=== PATIENT | male | born 1930 | race Caucasian/White ===

== ENCOUNTER 2017-03-16 18:18 | Emergency (ER) | payer MEDICARE ==
--- NOTE | 2017-03-16 19:34 | RAD ---
INDICATION: Cough COMPARISON: February 03, 2017 TECHNIQUE: PA and lateral dual-energy views were obtained. FINDINGS: Bones/Soft Tissues: There are no acute bony findings. There is sternotomy Cardiomediastinal: The cardiomediastinal silhouette is normal. Lungs: There are no infiltrates. There is mild right basilar atelectasis, unchanged Pleura: There are no pleural effusions. Other: There is elevation right hemidiaphragm, unchanged IMPRESSION: NO ACTIVE DISEASE. CHRONIC ELEVATION OF THE RIGHT HEMIDIAPHRAGM
[2017-03-16 21:08] VITALS: BP 129/75
--- NOTE | 2017-03-16 21:17 | UC ---
Dustin Allen Alfonso, scribed for Josiah Spivey MD on 03/16/17 at 1915 . General HPI - HPI Summary HPI Summary: This patient is an 86 year old M presenting to [facility] referred by Dr. 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 He will see Dr. Pack tomorrow. The patient rates the pain 1/10 in severity. Symptoms aggravated and alleviated by nothing. Patient reports mild SOB. Patient denies fever, and CP. - History of Current Complaint Chief Complaint: UCRespiratory Stated Complaint: COUGH Time Seen by Provider: 03/16/17 19:06 Hx Obtained From: Patient Onset/Duration: Gradual Onset, Lasting Days, Still Present Timing: Constant Current Severity: Mild Pain Intensity: 1 - /10 Aggravating: nothing Alleviating: nothing Associated Signs & Symptoms: Positive: Other - mild SOB. Patient denies fever, and CP. - Allergy/Home Medications Allergies/Adverse Reactions: Allergies Allergy/AdvReac Type Severity Reaction Status Date / Time No Known Allergies Allergy Verified 08/01/15 15:28 PMH/Surg Hx/FS Hx/Imm Hx Previously Healthy: No Cardiovascular History: Other Other Cardiovascular History: valvular disease - Surgical History Surgical History: Yes Surgery Procedure, Year, and Place: May.02 - AROTIC VALVE REPLACEMENT ( DAUGHTER WILL BRING AT TIME OF APT). WOLF KNEE REPLACEMENT - Family History Known Family History: Positive: Other - REVIEWED & NONCONTRIBUTORY - Social History Alcohol Use: None Substance Use Type: None Smoking Status (MU): Former Smoker Type: Pipe When Did the Patient Quit Smoking/Using Tobacco: 1984 Review of Systems Constitutional: Other - Negative fever Respiratory: Shortness Of Breath, Cough Cardiovascular: Other - Negative CP All Other Systems Reviewed And Are Negative: Yes Physical Exam Triage Information Reviewed: Yes Vital Signs: Initial Vital Signs Temp 97.0 F 03/16/17 18:25 Pulse 70 03/16/17 18:25 Resp 20 03/16/17 18:25 BP 136/73 03/16/17 18:25 Pulse Ox 96 03/16/17 18:25 Vital Signs Reviewed: Yes - Additional Comments VITAL SIGNS: Reviewed. GENERAL: Patient is an elderly and nourished male who is lying comfortable in the stretcher. Patient is not in any acute respiratory distress. HEAD AND FACE: Normocephalic EYES: PERRLA, EOMI x 2. EARS: Hearing grossly intact. MOUTH: Oropharynx within normal limits. NECK: Supple, trachea is midline, no adenopathy, no JVD, no carotid bruit. CHEST: Symmetric, no tenderness at palpation LUNGS: Bilateral crackles. No wheezing. CVS: Regular rate and rhythm, S1 and S2 present, no murmurs or gallops appreciated. ABDOMEN: Soft, non-tender. Bowel sounds are normal. No abdominal abnormal pulsations. EXTREMITIES: Full ROM in all major joints, no edema, no cyanosis or clubbing. NEURO: Alert and oriented x 3. No acute neurological deficits. Speech is normal and follows commands. SKIN: Dry and warm Diagnostics - Laboratory Diagnostic Studies Completed/Ordered: CXR reveals, per radiologist, NO ACTIVE DISEASE. CHRONIC ELEVATION OF THE RIGHT HEMIDIAPHRAGM. [facility] physician has reviewed this radiology report. 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 He will see Dr. Pack tomorrow. The patient rates the pain 1/10 in severity. Symptoms aggravated and alleviated by nothing. Patient reports mild SOB. Patient denies fever, and CP. CXR reveals, per radiologist, NO ACTIVE DISEASE. CHRONIC ELEVATION OF THE RIGHT HEMIDIAPHRAGM. [facility] physician has reviewed this radiology report. Influenza A and B negative. Patient will be discharged with follow up from PCP. The patient is agreeable with this plan. The patient is hemodynamically stable, alert and oriented x3. - Differential Dx - Multi-Symptom Differential Diagnoses: Other - Pneumonia, Bronchitis, CHF, Provider Diagnoses: Cough Discharge - Discharge Plan Condition: Stable Disposition: HOME Patient Education Materials: Acute Cough (ED) Referrals: Josiah Pack MD [Primary Care Provider] - 1 Day Additional Instructions: RETURN TO THE EMERGENCY DEPARTMENT OR CONVENIENT CARE FOR CHANGING OR WORSENING SYMPTOMS. The documentation as recorded by the Dustin canela Alfonso accurately reflects the service I personally performed and the decisions made by Patric scales Walter, MD.
== END 2017-03-16 21:05 | disposition home or self-care (01) ==
LOC: UCEAST 18:18
DX: R05 Cough (principal); R06.02 Shortness of breath; Z87.891 Personal history of nicotine dependence
CPT/HCPCS: 71020; 87502; 99211; G0463

== ENCOUNTER 2017-10-11 08:57 | Emergency (ER) | payer MEDICARE ==
[2017-10-11 09:46] LABS: ABS Basophils 0.1 10^3/ul (0-0.2); ABS Eosinophils 0.4 10^3/ul (0-0.6); ABS Lymphocytes 1.1 10^3/ul (1.0-4.8); ABS Monocytes 0.9 10^3/ul (0-0.8); ABS Neutrophils 4.6 10^3/ul (1.5-7.7); ABS Nucleated RBC 0 10^3/ul; Eosinophil % 5.6 % (0-6); Hematocrit 40 % (42-52); Hemoglobin 13.7 g/dl (14.0-18.0); Lymphocyte % 15.8 % (25-47); Mean Corpuscular HGB Conc 34 g/dl (31-36); Mean Corpuscular Hemoglobin 31 pg (27-31); Mean Corpuscular Volume 91 fL (80-94); Mean Platelet Volume 8.7 um3 (7.4-10.4); Nucleated Red Blood Cells % 0; Platelet Count 174 10^3/ul (150-450); Red Blood Count 4.43 10^6/ul (4.00-5.40); Red Cell Distribution Width 15 % (10.5-15); White Blood Count 7.1 10^3/ul (3.5-10.8)
[2017-10-11 09:56] LABS: EGFR Non-African American 59.2 (>60)
--- NOTE | 2017-10-11 09:56 | RAD ---
INDICATION: Agitation. Dimension. COMPARISON: March 16, 2017 TECHNIQUE: PA and lateral dual-energy views were obtained. FINDINGS: Bones/Soft Tissues: There are no acute bony findings. There is prior sternotomy /valvular surgery Cardiomediastinal: The cardiomediastinal silhouette is normal. Lungs: There is new infiltrative change in the right lung base. Pleura: There is a suspected right-sided effusion. Other: There is chronic elevation right hemidiaphragm. IMPRESSION: NEW RIGHT BASILAR INFILTRATE /EFFUSION. SUGGEST FOLLOW-UP
--- NOTE | 2017-10-11 11:25 | ED ---
Psychiatric Complaint - HPI Summary HPI Summary: Pt with dementia who resides on dementia unit at [facility] presents w/ " aggressive behavior". No other reports provided. Pt is poor historian. - History Of Current Complaint Chief Complaint: EDGeneral Time Seen by Provider: 10/11/17 09:16 Hx Obtained From: Patient - Allergies/Home Medications Allergies/Adverse Reactions: Allergies Allergy/AdvReac Type Severity Reaction Status Date / Time No Known Allergies Allergy Verified 10/11/17 09:02 Home Medications: Home Medications Acetaminophen TAB* [Tylenol TAB*] 650 mg PO Q4H PRN 10/11/17 [History Confirmed 10/11/17] Aspirin EC TAB* [Ecotrin EC Low Dose 81 MG*] 81 mg PO DAILY 10/11/17 [History Confirmed 10/11/17] Calcium Carbonate TAB* 1,250 mg PO BID 10/11/17 [History Confirmed 10/11/17] Cholecalciferol TAB* [Vitamin D TAB*] 1,000 unit PO DAILY 10/11/17 [History Confirmed 10/11/17] Donepezil TAB* [Aricept 5 MG TAB*] 10 mg PO BEDTIME 10/11/17 [History Confirmed 10/11/17] Enalapril TAB* [Vasotec TAB*] 10 mg PO DAILY 10/11/17 [History Confirmed ] Loperamide LIQ* [Imodium LIQ*] 2 mg PO DAILY PRN 10/11/17 [History Confirmed ] Metoprolol Tartrate TAB* [Lopressor TAB*] 50 mg PO BID 10/11/17 [History Confirmed 10/11/17] [place]-3 Fatty Acids (Nf) [Fish Oil (NF)] 1,000 mg PO DAILY 10/11/17 [History Confirmed 10/11/17] Simvastatin TAB(NF) [Zocor(NF)] 20 mg PO DAILY 10/11/17 [History Confirmed 10/11] Umeclidin/Vilant 62.5 MDI(NF) [ANORO 62.5/25 Ellipta DEVICE (NF)] 1 inh INH DAILY 10/11/17 [History Confirmed 10/11/17] amLODIPine TAB* [Norvasc 5 mg TAB*] 5 mg PO DAILY 10/11/17 [History Confirmed ] PMH/Surg Hx/FS Hx/Imm Hx Previously Healthy: No - severe dementia Endocrine/Hematology History: Denies: Hx Diabetes Cardiovascular History: Reports: Hx Hypertension - CONTROLLED WITH MEDS, Hx Peripheral Vascular Disease - RIGHT ILLIAC, Hx Rheumatic Fever - A TEEN, Hx Valvular Heart Disease - HEART VALVE TRANSPLANT Denies: Hx Congestive Heart Failure, Hx Pacemaker/ICD, Other Cardiovascular Problems/Disorders Respiratory History: Denies: Hx Asthma, Hx Chronic Obstructive Pulmonary Disease (COPD), Other Respiratory Problems/Disorders GI History: Denies: Other GI Disorders History: Denies: Hx Renal Disease Musculoskeletal History: Reports: Hx Arthritis - HANDS, FEET Denies: Other Musculoskeletal History Sensory History: Reports: Hx Cataracts - WOLF, Hx Contacts or Glasses - GLASSES, Hx Hearing Aid Opthamlomology History: Reports: Hx Cataracts - WOLF, Hx Contacts or Glasses - GLASSES Neurological History: Reports: Hx Nerve Disease - NEUROPATHY LEFT SIDE, Other Neuro Impairments/Disorders - DEMENTIA Psychiatric History: Denies: Hx Panic Disorder - Cancer History Cancer Type, Location and Year: PROSTATE Hx Chemotherapy: Yes - Surgical History Surgery Procedure, Year, and Place: May.02 - AROTIC VALVE REPLACEMENT ( DAUGHTER WILL BRING AT TIME OF APT). WOLF KNEE REPLACEMENT Hx Anesthesia Reactions: Yes - AGGRESSIVE WITH VALVE REPLACEMENT Infectious Disease History: Unable to Obtain/Confirm Infectious Disease History: Denies: Traveled Outside the [place] in Last 30 Days - Family History Known Family History: Positive: Other - level 5 caveat - dementia - Social History Occupation: Retired Lives: At [facility] [employer] Alcohol Use: None Hx Substance Use: No Substance Use Type: Reports: None Hx Tobacco Use: No Smoking Status (MU): Former Smoker Type: Pipe Review of Systems - ROS Summary Review of Systems Summary: Level 5 caveat - significant dementia Psychological: Other - aggressive behavior reported by [facility] staff All Other Systems Reviewed And Are Negative: Yes Physical Exam Triage Information Reviewed: Yes Vital Signs On Initial Exam: Initial Vitals Temp Pulse Resp BP Pulse Ox 98 F 57 16 145/60 94 10/11/17 08:59 10/11/17 08:59 10/11/17 08:59 10/11/17 08:59 10/11/17 08:59 Vital Signs Reviewed: Yes Appearance: Positive: Well-Appearing, No Pain Distress, Well-Nourished Skin: Positive: Warm, Skin Color Reflects Adequate Perfusion, Dry - no s/sx of wounds/skin infection Head/Face: Positive: Normal Head/Face Inspection - atraumatic Eyes: Positive: Normal, EOMI, SHANEL, Conjunctiva Clear ENT: Positive: Normal ENT inspection, Hearing grossly normal, Pharynx normal - mucosa moist - atraumatic, TMs normal. Negative: Nasal congestion, Nasal drainage, Trismus, Muffled voice Dental: Negative: Dental Fracture @ Neck: Positive: Supple, Nontender Respiratory/Lung Sounds: Positive: Clear to Auscultation, Breath Sounds Present. Negative: Rales, Rhonchi, Wheezes Cardiovascular: Positive: RRR, S1, S2. Negative: Leg Edema Left, Leg Edema Right Abdomen Description: Positive: Nontender, No Organomegaly, Soft Bowel Sounds: Positive: Present Musculoskeletal: Positive: Strength/ROM Intact - spontaneous and appropriate Neurological: Positive: Other - significant dementia - does not answer questions appropriately. Negative: Alert, Oriented to Person Place, Time Psychiatric: Positive: Normal - calm, seated on stretcher - pleasant and mostly cooperative w/ exam Diagnostics - Vital Signs Vital Signs Temp Pulse Resp BP Pulse Ox 10/11/17 08:59 98 F 57 16 145/60 94 - Laboratory Lab Results: Lab Results 10/11/17 10/11/17 Range/Units 09:27 09:27 WBC 7.1 (3.5-10.8) 10^3/ul RBC 4.43 (4.00-5.40) 10^6/ul Hgb 13.7 L (14.0-18.0) g/dl Hct 40 L (42-52) % MCV 91 (80-94) fL MCH 31 (27-31) pg MCHC 34 (31-36) g/dl RDW 15 (10.5-15) % Plt Count 174 (150-450) 10^3/ul MPV 8.7 (7.4-10.4) um3 Neut % (Auto) 65.4 (38-83) % Lymph % (Auto) 15.8 L (25-47) % [place] % (Auto) 12.3 H (0-7) % Eos % (Auto) 5.6 (0-6) % Baso % (Auto) 0.9 (0-2) % Absolute Neuts (auto) 4.6 (1.5-7.7) 10^3/ul Absolute Lymphs (auto) 1.1 (1.0-4.8) 10^3/ul Absolute Monos (auto) 0.9 H (0-0.8) 10^3/ul Absolute Eos (auto) 0.4 (0-0.6) 10^3/ul Absolute Basos (auto) 0.1 (0-0.2) 10^3/ul Absolute Nucleated RBC 0 10^3/ul Nucleated RBC % 0 Sodium 137 (135-145) mmol/L Potassium 4.1 (3.5-5.0) mmol/L Chloride 103 (101-111) mmol/L Carbon Dioxide 30 (22-32) mmol/L Anion Gap 4 (2-11) mmol/L BUN 21 (6-24) mg/dL Creatinine 1.17 (0.67-1.17) mg/dL Est GFR ( Amer) 71.7 (>60) Est GFR (Non-Af Amer) 59.2 (>60) BUN/Creatinine Ratio 17.9 (8-20) Glucose 107 H (70-100) mg/dL Calcium 9.3 (8.6-10.3) mg/dL Total Bilirubin 0.70 (0.2-1.0) mg/dL AST 22 (13-39) U/L ALT 24 (7-52) U/L Alkaline Phosphatase 68 (34-104) U/L Total Protein 7.1 (6.4-8.9) g/dL Albumin 3.5 (3.2-5.2) g/dL Globulin 3.6 (2-4) g/dL Albumin/Globulin Ratio 1.0 (1-3) TSH 1.06 (0.34-5.60) mcIU/mL Salicylates < 2.50 (<30) mg/dL Acetaminophen < 15 mcg/mL Serum Alcohol < 10 (<10) mg/dL Result Diagrams: 10/11/17 09:27 10/11/17 09:27 Lab Statement: Any lab studies that have been ordered have been reviewed, and results considered in the medical decision making process. Course/Dx - Course Course Of Treatment: Pt w/ significant dementia presents from [facility] with "aggressive behevior". He is a poor historian and so w/u performed to assess for infection/injury. Labs are unremarkable for significant pathology and CXR is abnormal for effusion vs. infiltrate. W/o pt reporting sx of cough, SOB and having normal pulse ox, temp w/ normal WBC's, a CT was ordered to r/o new effusion. CT confirms infiltrate. CT brain was also ordered to r/o trauma - no acute findings but chronic atrophy correlates w/ dementia presentation. Discussed w/ Dr. Salazar. Pt d/c'd back to [facility] w/ close f/u w/ PCP tomorrow. Danger s/sx of when to return to ED printed on d/c for nursing to review - nurse also made call to coordinate care plan (see nursing notes). - Differential Dx/Clinical Impression Provider Diagnosis: Pneumonia Discharge - Sign-Out/Discharge Documenting (check all that apply): Patient Departure - Discharge Plan Condition: Stable Disposition: HOME Prescriptions: Azithromycin TAB* [Zithromax TAB (Z-LJ) 250 mg #6 tabs] 250 mg PO DAILY #4 tab ceFUROXime TAB(*) [Ceftin TAB 250 MG(*)] 500 mg PO BID #9 tab Patient Education Materials: Bacterial Pneumonia (ED) Referrals: Josiah Pack MD [Primary Care Provider] - Additional Instructions: You appear to have a right sided pneumonia - complete medications as directed and follow-up with PCP in 2 days. Take probiotics in between antibiotic doses to prevent diarrhea, c. diff If you develop fever, chills, vomiting, shortness of breath or chest pain, return to the ED - Billing Disposition and Condition Condition: STABLE Disposition: Home
[2017-10-11 11:36] LABS: Urine Appearance Clear; Urine Blood Negative (Negative); Urine Color Yellow; Urine Ketones Negative (Negative); Urine Protein Negative (Negative); Urine Specific Gravity 1.016 (1.010-1.030); Urine Urobilinogen Negative (Negative)
--- NOTE | 2017-10-11 12:21 | RAD ---
INDICATION: Dementia . Right lower lobe infiltrate on concurrent chest x-ray COMPARISON: Chest x-ray same date TECHNIQUE: Noncontrast axial source images were obtained from the thoracic inlet to the hemidiaphragms. Coronal and sagittal reconstructed images were acquired. The visualized neck to include the thyroid appear normal. Chest wall: There are no acute abnormalities of the bony thorax or chest wall. There is prior sternotomy There is no supraclavicular, infraclavicular, or axillary lymphadenopathy. Lungs : The left lung is clear. There is infiltrate or atelectasis in the right lung base.. Cardiomediastinal structures: The heart is normal in size. There is no pericardial effusion. There is no evidence of aortic aneurysm or dissection. There are atherosclerotic changes with aortic valvular surgery. The pulmonary vessels appear normal. There is no mediastinal or hilar adenopathy. The esophagus appears normal. Pleura : There are no significant effusions. Other: There is colonic interposition in the right upper quadrant there are bilateral renal cysts. There are aortic calcifications. There is elevation right hemidiaphragm, a finding documented previously IMPRESSION: CHRONIC ELEVATION RIGHT HEMIDIAPHRAGM. INFILTRATE OR ATELECTASIS RIGHT LUNG BASE
--- NOTE | 2017-10-11 12:21 | RAD ---
INDICATION: New onset confusion COMPARISON: None. TECHNIQUE: Contiguous axial sections of the brain were obtained from the skull base to the vertex without contrast. FINDINGS: Image quality is somewhat limited by motion artifact. The ventricles, cisterns and sulci exhibit mild to moderate symmetrical involutional changes appropriate for the patient's age.. There is mild periventricular and subcortical white matter hypoattenuation most consistent with chronic microvascular disease. The sanchez-white matter differentiation is adequately maintained and there is no sulcal effacement. No significant focal abnormality or mass effect is present. There is no evidence for intracranial hemorrhage. No significant focal osseous abnormality is present. The visualized portion of the paranasal sinuses appear clear. The mastoid air cells are well aerated bilaterally. IMPRESSION: No CT apparent acute intracranial abnormality. Age-appropriate chronic findings include involutional changes in appearance consistent with chronic microvascular disease.
[2017-10-11] MEDS ORDERED: Azithromycin TAB* 250 MG PO ONE (12:38)
[2017-10-11] MEDS ORDERED: ceFUROXime TAB(*) 250 MG PO ONE (12:40)
[2017-10-11 12:58] VITALS: BP 140/66
== END 2017-10-11 12:56 | disposition home or self-care (01) ==
LOC: ED 08:57
DX: J18.9 Pneumonia, unspecified organism (principal); R00.1 Bradycardia, unspecified; F03.90 Unspecified dementia, unspecified severity, without behavioral disturbance, psychotic disturbance, mood disturbance, and anxiety; I10 Essential (primary) hypertension; Z85.46 Personal history of malignant neoplasm of prostate; Z95.2 Presence of prosthetic heart valve; Z96.653 Presence of artificial knee joint, bilateral; Z87.891 Personal history of nicotine dependence
CPT/HCPCS: 36415; 70450; 71046; 71250; 80053; 80307; 80320; 80329; 81003; 83880; 84443; 85025; 93005; 99284; A9270-GY; G0480

== ENCOUNTER 2018-02-25 13:07 | Emergency (ER) | payer MEDICARE ==
--- NOTE | 2018-02-25 13:52 | ED ---
Syncope/Near Syncope - HPI Summary HPI Summary: An 87 y/o male presents brought in by [facility] presents to [facility] with a chief complaint of sycope.The patient is a LEVEL 5 CAVEAT: The history is limited due to the patient having dementia. Per daughter, Iliana relayed the information that he was not responding at lunch time and that he was being sent out. The pt does not remember anything. The patient denies SOB. Per daughter the pt has a Hx of a heart valve replacement and he does not meet the threshold for O2. - History Of Current Complaint Chief Complaint: EDSyncope Time Seen by Provider: 02/25/18 13:36 Hx Obtained From: Patient, Family/Stylist Assistant Hx From Patient Unobtainable Due To: Dementia Onset/Duration: Sudden Onset, Lasting Hours, Resolved Context: Witnessed Activity At Onset: At Rest Aggravating Factor(s): Nothing Alleviating Factor(s): Nothing Associated Signs And Symptoms: Negative - Allergies/Home Medications Allergies/Adverse Reactions: Allergies Allergy/AdvReac Type Severity Reaction Status Date / Time No Known Allergies Allergy Verified 10/11/17 09:02 PMH/Surg Hx/FS Hx/Imm Hx Previously Healthy: No Endocrine/Hematology History: Denies: Hx Diabetes Cardiovascular History: Reports: Hx Hypertension - CONTROLLED WITH MEDS, Hx Peripheral Vascular Disease - RIGHT ILLIAC, Hx Rheumatic Fever - A TEEN, Hx Valvular Heart Disease - HEART VALVE TRANSPLANT Denies: Hx Congestive Heart Failure, Hx Pacemaker/ICD, Other Cardiovascular Problems/Disorders Respiratory History: Denies: Hx Asthma, Hx Chronic Obstructive Pulmonary Disease (COPD), Other Respiratory Problems/Disorders GI History: Denies: Other GI Disorders History: Denies: Hx Renal Disease Musculoskeletal History: Reports: Hx Arthritis - HANDS, FEET Denies: Other Musculoskeletal History Sensory History: Reports: Hx Cataracts - WOLF, Hx Contacts or Glasses - GLASSES, Hx Hearing Aid Opthamlomology History: Reports: Hx Cataracts - WOLF, Hx Contacts or Glasses - GLASSES Neurological History: Reports: Hx Nerve Disease - NEUROPATHY LEFT SIDE, Other Neuro Impairments/Disorders - DEMENTIA Psychiatric History: Denies: Hx Panic Disorder - Cancer History Cancer Type, Location and Year: PROSTATE Hx Chemotherapy: Yes - Surgical History Surgery Procedure, Year, and Place: May.02 - AROTIC VALVE REPLACEMENT ( DAUGHTER WILL BRING AT TIME OF APT). WOLF KNEE REPLACEMENT Hx Anesthesia Reactions: Yes - AGGRESSIVE WITH VALVE REPLACEMENT Infectious Disease History: No Infectious Disease History: Denies: Traveled Outside the [place] in Last 30 Days - Family History Known Family History: Positive: Other - level 5 caveat - dementia - Social History Alcohol Use: None Hx Substance Use: No Substance Use Type: Reports: None Hx Tobacco Use: No Smoking Status (MU): Former Smoker Type: Pipe Review of Systems Negative: Shortness Of Breath Positive: Syncope All Other Systems Reviewed And Are Negative: Yes Physical Exam - Summary Physical Exam Summary: Appearance: The patient is well-nourished in no acute distress and in no acute pain. Skin: The skin is warm and dry and skin color reflects adequate perfusion. HEENT: The head is normocephalic and atraumatic. The pupils are equal and reactive. The conjunctivae are clear and without drainage. Nares are patent and without drainage. Mouth reveals moist mucous membranes and the throat is without erythema and exudate. The external ears are intact. The ear canals are patent and without drainage. The tympanic membranes are intact. Neck: The neck is supple with full range of motion and non-tender. There are no carotid bruits. There is no neck vein distension. Respiratory: Chest is non-tender. Lungs are clear to auscultation and breath sounds are symmetrical and equal. Cardiovascular: Heart is regular rate and rhythm. There is no murmur or rub auscultated. There is no peripheral edema and pulses are symmetrical and equal. Abdomen: The abdomen is soft and non-tender. There are normal bowel sounds heard in all four quadrants and there is no organomegaly palpated. Musculoskeletal: There is no back tenderness noted. Extremities are non-tender with full range of motion. There is good capillary refill. There is no peripheral edema or calf tenderness elicited. Neurological: Patient is alert and oriented to person, place and time. The patient has symmetrical motor strength in all four extremities. Cranial nerves are grossly intact. Deep tendon reflexes are symmetrical and equal in all four extremities. Psychiatric: The patient has an appropriate affect and does not exhibit any anxiety or depression. Triage Information Reviewed: Yes Vital Signs On Initial Exam: Initial Vitals Temp Pulse Resp BP Pulse Ox 97.7 F 67 19 113/61 93 02/25/18 13:12 02/25/18 13:12 02/25/18 13:12 02/25/18 13:12 02/25/18 13:12 Vital Signs Reviewed: Yes Completion Of Physical Exam Limited Due To: Dementia Diagnostics - Vital Signs Vital Signs Temp Pulse Resp BP Pulse Ox 02/25/18 13:12 97.7 F 67 19 113/61 93 - Laboratory Result Diagrams: 02/25/18 14:20 02/25/18 14:20 Lab Statement: Any lab studies that have been ordered have been reviewed, and results considered in the medical decision making process. - Radiology CXR Radiology Interpretation Completed By: Radiologist Summary of Radiographic Findings: LOW LUNG VOLUMES, SMALL BIBASILAR INFILTRATES SUGGESTIVE OF ATELECTASIS. ED physician has reviewed this imaging report. - CT Brain CT Interpretation Completed By: Radiologist Summary of CT Findings: 1. NO EVIDENCE FOR ACUTE INTRACRANIAL ABNORMALITY. 2. ATROPHY AND FINDINGS CONSISTENT WITH CHRONIC SMALL VESSEL ISCHEMIC CHANGES. ED physician has reviewed this imaging report. - EKG 15:02 Cardiac Rate: Bradycardia - 55 bpm EKG Rhythm: Sinus Rhythm Summary of EKG Findings: Normal sinus rhythm, R defect. Course/Dx Course Of Treatment: Mr. Segal was sent into the emergency department because he had a near syncopal episode and was found to be bradycardic. The ambulance found him to be not very alert and intermittently bradycardic and gave him atropine on the way in. On arrival here he was awake and alert and nontoxic in appearance with stable vital signs. He has dementia and cannot give any history. Labs were obtained and he was kept on the monitor here and he remained stable for a period of time. He may at some point need attention to this but his family is in agreement with that we do not need to do anything at this time and can send him back to the halfway. - Diagnoses Provider Diagnoses: Bradycardia Discharge - Sign-Out/Discharge Documenting (check all that apply): Patient Departure - DC - Discharge Plan Condition: Stable Disposition: HOME Patient Education Materials: Bradycardia (ED) Referrals: Josiah Pack MD [Primary Care Provider] - (2-3 days) Additional Instructions: Follow up with your PCP in 2-3 days. Return to the ED if you experience any new or worsening symptoms. - Billing Disposition and Condition Condition: STABLE Disposition: Home - Attestation Statements Document Initiated by Scribe: Yes Documenting Scribe: Jaime Lara Provider For Whom Scribe is Documenting (Include Credential): Devin Choe MD Scribe Attestation: I, Jaime Lara, scribed for Devin Choe MD on 02/25/18 at 2118. Scribe Documentation Reviewed: Yes Provider Attestation: The documentation as recorded by the scribe, Jaime Lara accurately reflects the service I personally performed and the decisions made by me, Devin Choe MD Status of Scribe Document: Viewed
[2018-02-25] MEDS ORDERED: NS 0.9% 1000 ML* 1,000 ML IV ONE (13:56)
[2018-02-25 14:35] LABS: ABS Basophils 0.1 10^3/ul (0-0.2); ABS Eosinophils 0.2 10^3/ul (0-0.6); ABS Nucleated RBC 0 10^3/ul; Eosinophil % 2.4 %; Hematocrit 38 % (42-52); Hemoglobin 12.4 g/dl (14.0-18.0); Lymphocyte % 9.6 %; Mean Corpuscular HGB Conc 33 g/dl (31-36); Mean Corpuscular Hemoglobin 31 pg (27-31); Mean Corpuscular Volume 93 fL (80-94); Mean Platelet Volume 9.2 fL (7.4-10.4); Nucleated Red Blood Cells % 0.1; Platelet Count 162 10^3/ul (150-450); Red Blood Count 4.06 10^6/ul (4.00-5.40); Red Cell Distribution Width 15 % (10.5-15); White Blood Count 10.4 10^3/ul (3.5-10.8)
[2018-02-25 14:40] LABS: INR 0.96 (0.77-1.02)
[2018-02-25 14:58] LABS: EGFR Non-African American 53.9 (>60)
[2018-02-25 16:50] VITALS: BP 108/56
== END 2018-02-25 17:43 | disposition home or self-care (01) ==
LOC: ED 13:07
DX: R00.1 Bradycardia, unspecified (principal); R55 Syncope and collapse; I10 Essential (primary) hypertension; Z95.2 Presence of prosthetic heart valve; Z96.653 Presence of artificial knee joint, bilateral; Z87.891 Personal history of nicotine dependence
CPT/HCPCS: 36415; 70450; 71046; 80053; 82140; 83605; 83735; 83880; 84443; 84484; 85025; 85610; 86140; 93005; 96360; 99284

== ENCOUNTER 2018-03-24 18:42 | Inpatient (IN) | payer MEDICARE ==
[2018-03-24] MEDS ORDERED: NS 0.9% 1000 ML* 2,000 ML IV ONE (18:55)
--- OUTSIDE RECORDS SUMMARY | 2018-03-24 18:56 | XMS REPORT | Continuity of Care Document ---
:1930 External Reference #:[id number] Author Name Belgica Ruiz Care Team Providers Name Role Phone Josiah Pack III, MD Primary Care Physician Unavailable Payers Type Date Identification Numbers Payment Provider Subscriber Policy Number: [id number] [facility] Ppo/Epo Zo Segal PayID: [id number] [address] [place] [address] Policy Number: [id number] Medicare Zo Saundersn PayID: [id number] [address] [facility] [place] [address] Effective: 1997 Policy Number: [id number] Medicare Zo Saundersn Expires: 2015 PayID: [id number] [address] [place] [address] Expires: 2014 Policy Number: [id number] [facility] Zo Segal PayID: [id number] [address] [address] [place] [address] Expires: 2016 Policy Number: [facility] Zo Segal [id number] PayID: [id number] [address] [place] [address] Advance Directives Type Date Description Status Comment Other Directive 06/28/2013 Health Care Proxy Current and Verified Problems Date Description Provider Status Onset: 12/29/2010 Benign essential hypertension Josiah Pack M.D. Active Onset: 12/29/2010 Pure hypercholesterolemia Josiah Pack M.D. Active Onset: 12/29/2010 Aortic valve disorder Josiah Pack M.D. Active Onset: 12/29/2010 Osteoarthritis of knee Josiah Pack M.D. Active Onset: 12/29/2010 History of malignant neoplasm of Josiah Pack M.D. 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 Active Onset: 04/11/2013 Heart murmur Selvin Ramirez M.D. Onset: 08/03/2016 Heart valve replacement Josiah Pack M.D. 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 1 pack per 3 days, pipe twice a day Recreational Drug Use Denies Drug Use Exercise Type/Frequency Exercises regularly Exercise Type/Frequency walks regularly. Allergies, Adverse Reactions, Alerts Description No Known Drug Allergies Medications Medication Date Status Form Strength Qnty SIG Indications Ordering Provider Melatonin 12/01 Active Capsules 10mg 30cap 1 tab by s mouth at Sirena, bedtime as M.D. needed for insomnia Antifungal 12/01 Active Powder 2% 71gm use on skin Sirena, irritation M.D. as needed Desitin 09/01 Active Cream 13% 1unit apply s every Sirena, shift and M.D. as needed Amoxicillin 05/23 Active Tablets 500mg 30tab take one Josiah E. s by mouth Sirena, three M.D. times a day until finished Donepezil HCL 08/07 Active Tablets 10mg 90tab take 1 F03.90 s tablet by Sirena, mouth once M.D. daily at bedtime Memantine HCL 08/07 Active Tablets 10mg 180ta take one . bs tab by Sirena mouth M.DEduardo twice a day Bengay Greaseless 07/26 Active Cream 10-15% 113gm apply twice Sirena, daily to M.D. affected area Anoro Ellipta 02/03 Active Aerosol 62.5-25mc 3unit 1 puff R09.02 Josiah Eduardo g/Inh s daily Thomas Pack Depend Real-Fit 01/25 Active Misc 150un for use Josiah Bhagat For its 5-6 times Sirena L/XL Maximum daily dx: BetsyDEduardo Absorbency c61, n39.42, f01.51 Depend Pant Large 01/24 Active Misc 180un use 4-6 Josiah Eduardo its times a Sirena, day Douglas.Kelly Hydrochlorothiazi 08/05 Active Tablets 12.5mg 90tab 1 by mouth Josiah Chi s every day Thomas Pack Imodium A-D 08/17 Active Liquid 1mg/7.5ML 4oz 20 Eduardo milliliter Sirena, s (4mg) by Douglas.Kelly mouth with 1st loose stool and 10 milliliter s (2mg) with subsiquent loose stool as needed verbal ord Fish Oil 07/07 Active Capsules 1000mg 90cap 1 by mouth Josiah Chi s daily dx Thomas Pack Tylenol 01/08 Active Tablets 325mg 100ta 2 tab by Josiah Chi /2013 bs mouth Sirena, every 4 M.D. hours as needed pain Vitamin D-1000 07/18 Active Tablets 1000Unit 90tab 1 by mouth M17.9 Josiah Chi Maximum Strength /2013 s every day Sirena, dx: m17.9 M.DEduardo osteoarthi tis Amlodipine 05/14 Active Tablets 10mg 45tab 1/2 by Josiah Chi Besylate s mouth Sirena, every day M.DEduardo Metoprolol 05/14 Active Tablets 50mg 180ta 1 by mouth Josiah Chi Tartrate bs twice a Sirena, dx: M.D. htn Simvastatin 03/09 Active Tablets 20mg 90tab take 1 by E78.0 Josiah E. s mouth Sirena, every day M.D. Aspir-[address] 81mg 30tab 1 by mouth E78.0 Josiah E. / s every day Sirena, dx: M.DEduardo hyperchole sterol Calcium 600 Active Tablets 600mg 60tab 1 by mouth Josiah E. / s twice a Sirena, day dx M.D. code: v70.0 routine general examinatio n Enalapril Maleate Active Tablets 10mg 90tab 1 by mouth Josiah E. / s every day Thomas Pack Bactrim DS 11/21 Hx Tablets 800-160mg 14tab 1 by mouth Josiah E. s twice a Sirena, - day M.DEduardo 01/10 Ampicillin 08/16 Hx Capsules 500mg 12cap take 1 tab Josiah E. s by mouth 4 Sirena, - times a M.D. 08/16 day for days Amoxicillin 08/16 Hx Tablets 500mg 4tabs take 4 tablets by Sirena, - mouth 1 M.D. before dental procedure Namzaric 02/03 Hx Caps ER 28-10mg 90cap 1 po daily F03. Josiah E. 24HR s Valeria Pack M.D. 08/07 Namenda XR 08/30 Hx Caps ER 28mg 90cap 1 by mouth F03.90 Josiah E. 24HR s every day Valeria Pack M.D. 02/03 Namenda XR 08/03 Hx Caps ER 7mg 1caps titration F03.ter E. 24HR pack: Sirena - start M.DEduardo 08/30 daily and /2016 increase dose as per directions Debrox 07/19 Hx Solution 6.5% 30ml 5 to 10 Josiah E. drops in Sirena, - each ear M.D. 02/02 twice daily; not to exceed beyond 4 days. Pt may use own. Loperamide HCL 06/22 Hx Liquid 1mg/5ML 200ml 10ml by Josiah E. mouth as Sirena, - needed for M.D. 02/02 diarrhea Systane 03/06 Hx Solution 0.4-0.3% 60ml one drop Josiah Chi in left Sirena, - eye as M.D. 08/03 needed for dry eye syndrome Keflex 11/18 Hx Capsules 500mg 10cap 1 by mouth 680.2 Josiah E. s twice a Sirena, - day M.D. 07/14 Imodium A-D 06/26 Hx Liquid 1mg/ 5 ML 4Oz 20 Josiah E. milliliter Sirena, - s (4mg) by M.D. 08/17 mouth with 1st loose stool and 10 milliliter s (2mg) with subsiquent loose stool as needed verbal orde Imodium A-D 05/05 Hx Chewtabs 2mg 20uni 2 tabs by Josiah E. ts mouth as Sirena, - needed for M.D. 05/05 diarrhea. Imodium A-D 05/05 Hx Liquid 1mg/7.5ML 120ml as needed Josiah E. for Sirena, - diarrhea M.D. 06/26 Saline Nasal 05/01 Hx Solution 0.65% 3unit use prn Josiah Chi [place] s Sirena, - M.D. 02/02 Fish Oil Double 07/18 Hx Capsules 1200mg 30cap 2 in Qutaybeh Strength /2013 s a.m.and 1 S. - at night Maghaydah 07/18 , M.D. Fish Oil Extra 07/18 Hx Capsules 1200mg 30cap 1 by mouth Josiah EEduardo Strength s every day Sirena, - DX code: .D. 07/18 v70.0 General examinatio n Fish Oil Ultra 07/18 Hx Capsules 1000mg 30cap 1 by mouth Josiah EEduardo /2013 s daily dx Valeria Pack v70.0 .D. 07/07 Vitamin D 07/17 Hx Tablets 1000Unit 30tab 1 po qd dx Josiah Chi s code: Sirena - v70.0 M.DEduardo 07/18 general examinatio n Centrum 07/17 Hx Tablets 30tab take 1 po Josiah Eduardo s daily, Dx Sirena, - code: M.DEduardo 08/07 v70.0 General Health Screeing examinatio n Donepezil HCL 07/05 Hx Tablets 5mg 60tab 2 by mouth F03.90 Eduardo Dispers s every day Valeria Pack M.D. 02/03 Amiodarone HCL 05/14 Hx Tablets 200mg 100ta 1 po bid bs for 21 Ordering - days Provider 07/05 Lasix 05/14 Hx Tablets 40mg 30tab 1 po qd s for 10 Ordering - days Provider 07/05 Potassium 05/14 Hx Tablets ER 10Meq 1 po qd x Other Chloride 10 days Ordering - Provider 07/05 Hydrochlorothiazi 04/08 Hx Tablets 25mg 90tab 1 by mouth Josiah Chi s every day Valeria Pack resume Thomas 08/05 finishing lasix Hydrochlorothiazi 07/04 Hx Tablets 10mg 90tab 1 po qd Josiah Chi s Valeria Pack M.D. 04/08 Anucort-HC 07/04 Hx Suppository 25mg 10uni 1 tab V10.46 Josiah Eduardo ts daily per Valeria Pack rectum M.DEduardo 01/03 after rectal bleeding Norvasc 07/12 Hx Tablets 10mg 90tab 1 PO qd Enrique /2007 s Valeria Rice M.D.,FACP 05/16 Anusol-HC 04/18 Hx Suppository 25mg 25uni 1per Josiah Chi ts rectum bid Sirena - x 1 w,then M.D. 12/29 qd x 1 wk then d/c Glucosamine Hx Capsules 500-400 1 PO bid Sirena /0000 III, - Josiah 12/29 MD Alon Zocor Hx Tablets 20mg 90tab one po qhs Josiah E. /0000 s Valeria Pack M.D. 04/09 Norvasc Hx Tablets 5mg 90tab 1 PO qd Baljinder, / cee Healy MD - 07/03 Hydrochlorothiazi Hx Tablets 25mg 90tab 1 po qd Josiah Chi de / s Valeria Pack M.D. 07/04 Centrum Silver Hx Tablets 1 30tab take 1 po Sirena /0000 s daily, Dx III, - code: Josiah 07/17 v70.0 MD Alon /2013 General Health Screeing examinatio n Fish Oil Hx Capsules 1200/2000 30cap 1 by mouth Josiah E. W/Vitamin D /0000 mg s every day Sirena, - dx code: M.Kelly 07/18 v70.0 routine general screening/ examinatio n Vitamin A&D Hx Capsules 5000/400 Unknown /0000 - 01/03 Selenium Hx Tablets 200mcg Unknown /0000 - 10/01 Magnesium Hx Tablets 250mg 1 po qd Unknown /0000 - 10/01 Anusol HC Hx 25mgM 21uni 1 Josiah E. /0000 Supp ts suppositor Sirena - y per M.DEduardo 04/18 rectum tid /2007 max 2 weeks Norvasc Hx Tablets 5mg 180ta 1 po bid Josiah E. /0000 bs Valeria Pack MCarlos 07/12 Vasotec Hx Tablets 10mg 90tab Take 1 Josiah E. /0000 s Tablet Sirena, - Daily M.D. 01/03 Vitamin D-1000 Hx Tablets 1000Unit 30tab 1 po qd dx Unknown /0000 s code: - V70.0 07/17 Routine general examinatio n Cyclobenzaprine Hx Tablets 10mg one by Unknown HCL /0000 mouth - three 08/26 times day as needed spasm Acetaminophen-Cod Hx Tablets 300-30mg 1 tab by Unknown eine #3 /0000 mouth q 6 - hrs prn 02/02 for pain /2017 Medications Administered in Office Medication Date Status Form Strength Qnty SIG Indications Ordering Provider [facility] Administered Injection Josiah Pcak M.D. Immunizations CPT Code Status Date Vaccine Lot # [id number] Given 12/20/2016 Influenza Virus Vaccine, Quadrivalent, Split, Preservative Free [id number] Given 01/14/2015 Influenza Virus Vaccine, Quadrivalent, Split, Preservative Free 82681 Given 07/08/2014 Pneumococcal Conjugate Vaccine 13 Valent For [id number] Intramuscular Use Q2039 Given 01/01/2014 Flu Vaccine NOS 88419 Given 01/03/2013 Flu Vaccine Split Virus Preservative Free For [id number] Indiv 3Yr Older Q2038 Given 12/29/2010 Fluzone Vaccine 61370 Given 12/29/2009 Influenza Virus 3Yrs & Over [id number] 61132 Given 03/13/2009 Influenza Virus Vaccine, Pandemic Formulation 61174 Given 04/03/2008 Tetanus And Diptheria (Td) For Adult Use Preservative Free 13103 Given 02/01/2008 Influenza Virus 3Yrs & Over 55046 Given 12/28/2006 Influenza Virus 3Yrs & Over 97601 90921 Given 12/27/2006 Influenza Virus 3Yrs & Over 20145 Given 07/15/1997 Pneumonia Vaccine 92214 Given 07/14/1997 Pneumovax (History By Patient) Vital Signs Date Vital Result Comment 02/27/2018 3:08pm Height 68 inches 5'8" not checked Weight 207.00 lb Heart Rate 69 /min BP Systolic Sitting 120 mmHg BP Diastolic Sitting 60 mmHg O2 % BldC Oximetry 92 % BMI (Body Mass Index) 31.5 kg/m2 08/07/2017 10:16am Height 68 inches 5'8" not checked Weight 205.38 lb Heart Rate 74 /min BP Systolic Sitting 124 mmHg BP Diastolic Sitting 68 mmHg O2 % BldC Oximetry 95 % BMI (Body Mass Index) 31.2 kg/m2 2017 1:59pm Weight 209.25 lb Heart Rate 62 /min BP Systolic Sitting 122 mmHg BP Diastolic Sitting 68 mmHg O2 % BldC Oximetry 91 % 04/04/2017 10:39am Weight 204.00 lb Heart Rate 61 /min BP Systolic Sitting 120 mmHg BP Diastolic Sitting 72 mmHg Body Temperature 97.1 F O2 % BldC Oximetry 95 % dropped to 91% with walking 02/03/2017 11:09am Height 68 inches 5'8" Weight 202.00 lb Heart Rate 53 /min BP Systolic Sitting 116 mmHg BP Diastolic Sitting 64 mmHg Body Temperature 97.5 F O2 % BldC Oximetry 96 % dropped to 82% with walking BMI (Body Mass Index) 30.7 kg/m2 08/03/2016 1:19pm Height 68 inches 5'8" Weight 198.00 lb Heart Rate 56 /min BP Systolic Sitting 126 mmHg BP Diastolic Sitting 82 mmHg Respiratory Rate 14 /min O2 % BldC Oximetry 97 % 87 % after walking 120 feet BMI (Body Mass Index) 30.1 kg/m2 08/27/2015 2:13pm Weight 190.00 lb Heart Rate 62 /min BP Systolic Sitting 128 mmHg BP Diastolic Sitting 80 mmHg Respiratory Rate 14 /min O2 % BldC Oximetry 96 % 08/07/2015 11:49am Weight 190.00 lb Heart Rate 63 /min BP Systolic Sitting 130 mmHg BP Diastolic Sitting 73 mmHg O2 % BldC Oximetry 93 % 07/15/2015 2:02pm Height 68 inches 5'8" Weight 195.00 lb Heart Rate 55 /min BP Systolic Sitting 124 mmHg BP Diastolic Sitting 72 mmHg Respiratory Rate 14 /min Body Temperature 97.7 F O2 % BldC Oximetry 95 % BMI (Body Mass Index) 29.6 kg/m2 11/18/2014 3:02pm Height 68 inches 5'8" Weight 185.00 lb Heart Rate 58 /min BP Systolic Sitting 124 mmHg BP Diastolic Sitting 82 mmHg O2 % BldC Oximetry 97 % BMI (Body Mass Index) 28.1 kg/m2 07/08/2014 2:45pm Height 68 inches 5'8" Weight 187.00 lb Heart Rate 60 /min BP Systolic Sitting 144 mmHg BP Diastolic Sitting 80 mmHg Respiratory Rate 14 /min BMI (Body Mass Index) 28.4 kg/m2 07/05/2013 9:57am Height 66.75 inches 5'6.75" Weight 162.00 lb Heart Rate 58 /min BP Systolic Sitting 162 mmHg BP Diastolic Sitting 68 mmHg Body Temperature 96.7 F BMI (Body Mass Index) 25.6 kg/m2 05/16/2013 1:15pm Weight 166.00 lb Heart Rate 58 /min BP Systolic Sitting 100 mmHg BP Diastolic Sitting 16 mmHg Body Temperature 98.7 F 04/11/2013 1:56pm Height 67 inches 5'7" Weight 165.00 lb Heart Rate 82 /min BP Systolic Sitting 144 mmHg BP Diastolic Sitting 70 mmHg Respiratory Rate 16 /min BMI (Body Mass Index) 25.8 kg/m2 01/03/2013 9:59am Height 67 inches 5'7" Weight 165.50 lb Heart Rate 68 /min BP Systolic Sitting 130 mmHg BP Diastolic Sitting 64 mmHg BMI (Body Mass Index) 25.9 kg/m2 07/04/2012 8:44am Height 67.25 inches 5'7.25" Weight 174.00 lb Heart Rate 74 /min BP Systolic Sitting 114 mmHg BP Diastolic Sitting 78 mmHg BMI (Body Mass Index) 27.0 kg/m2 02/06/2012 9:33am Height 67.25 inches 5'7.25" Weight 174.00 lb Heart Rate 60 /min irregular BP Systolic Sitting 154 mmHg BP Diastolic Sitting 76 mmHg BMI (Body Mass Index) 27.0 kg/m2 01/04/2012 8:54am Height 67.56 inches 5'7.56" Weight 176.00 lb Heart Rate 88 /min BP Systolic Sitting 152 mmHg BP Diastolic Sitting 72 mmHg BMI (Body Mass Index) 27.1 kg/m2 07/01/2011 1:16pm Height 68.50 inches 5'8.50" Weight 180.00 lb Heart Rate 58 /min BP Systolic Sitting 153 mmHg BP Diastolic Sitting 68 mmHg BMI (Body Mass Index) 27.0 kg/m2 12/29/2010 12:50pm Height 68.50 inches 5'8.50" Weight 181.00 lb Heart Rate 68 /min BP Systolic Sitting 160 mmHg BP Diastolic Sitting 80 mmHg BMI (Body Mass Index) 27.1 kg/m2 04/23/2010 11:10am Weight 180.00 lb Heart Rate 79 /min BP Systolic Sitting 138 mmHg BP Diastolic Sitting 78 mmHg O2 % BldC Oximetry 94 % 12/29/2009 10:07am Height 67 inches 5'7" Weight 187.00 lb Heart Rate 82 /min BP Systolic Sitting 124 mmHg BP Diastolic Sitting 70 mmHg BMI (Body Mass Index) 29.3 kg/m2 10/21/2009 8:54am Weight 184.00 lb Heart Rate 74 /min BP Systolic Sitting 120 mmHg BP Diastolic Sitting 70 mmHg 04/20/2009 11:27am Weight 186.00 lb Heart Rate 64 /min BP Systolic Sitting 130 mmHg BP Diastolic Sitting 80 mmHg 10/15/2008 9:47am Height 67 inches 5'7" Weight 182.00 lb down 8# Heart Rate 68 /min BP Systolic Sitting 124 mmHg BP Diastolic Sitting 68 mmHg BMI (Body Mass Index) 28.5 kg/m2 04/03/2008 11:15am Height 67 inches 5'7" Weight 190.00 lb Heart Rate 60 /min BP Systolic Sitting 124 mmHg BP Diastolic Sitting 70 mmHg BMI (Body Mass Index) 29.8 kg/m2 10/02/2007 11:32am Height 67 inches 5'7" Weight 186.00 lb Heart Rate 76 /min BP Systolic Sitting 110 mmHg BP Diastolic Sitting 70 mmHg BMI (Body Mass Index) 29.1 kg/m2 04/03/2007 12:13pm Height 67 inches 5'7" Weight 190.00 lb Heart Rate 76 /min BP Systolic Sitting 146 mmHg BP Diastolic Sitting 74 mmHg BMI (Body Mass Index) 29.8 kg/m2 12/13/2006 9:37am Height 67 inches 5'7" Weight 191.00 lb Heart Rate 76 /min BP Systolic Sitting 138 mmHg BP Diastolic Sitting 76 mmHg BMI (Body Mass Index) 29.9 kg/m2 Results Test Date Facility Test Result H/L Range Note Laboratory test 02/25/2018 [facility] Ammonia 40 mcmol/L N 16- [address] [place] [address] [phone] B-Type Natriuretic Peptide BNP 155 pg/mL High <=100 Laboratory test 02/25/2018 [facility] Magnesium 1.9 mg/dL N 1.9-2.[address] [place] [address] [phone] C Reactive Protein 4.89 mg/L N <8.01 Troponin-I (TnI) 0.01 ng/mL <0.04 1 TSH (Thyroid Stim Horm) 1.67 mcIU/mL N 0.34-5.60 Inr/Protime 02/25/2018 [facility] Inr 0.96 N 0.[address] [place] [address] [phone] CBC Auto Diff 02/25/2018 [facility] White Blood 10.4 N 3.5- 10.8 DRIVE Count 10^3/[place] [address] [phone] Red Blood Count 4.06 10^6/uL N 4.00-5.40 Hemoglobin 12.4 g/dL Low 14.0-18.0 Hematocrit 38 % Low 42-52 Mean Corpuscular Volume 93 fL N 80-94 Mean Corpuscular Hemoglobin 31 pg N 27-31 Mean Corpuscular HGB Conc 33 g/dL N 31-36 Red Cell Distribution Width 15 % N 10.5-15 Platelet Count 162 10^3/uL N 150-450 Mean Platelet Volume 9.2 fL N 7.4-10.4 Abs Neutrophils 8.0 10^3/uL High 1.5-7.7 Abs Lymphocytes 1.0 10^3/uL N 1.0-4.8 Abs Monocytes 1.0 10^3/uL High 0-0.8 Abs Eosinophils 0.2 10^3/uL N 0-0.6 Abs Basophils 0.1 10^3/uL N 0-0.2 Abs Nucleated RBC 0 10^3/uL Granulocyte % 77.5 % Lymphocyte % 9.6 % Monocyte % 9.6 % Eosinophil % 2.4 % Basophil % 0.9 % Nucleated Red Blood Cells % 0.1 Comp Metabolic Panel 02/25/2018 [facility] Sodium 138 mmol/L N 135-[address] [place] [address] [phone] Potassium 4.3 mmol/L N 3.5-5.0 Chloride 108 mmol/L N 101-111 Co2 Carbon Dioxide 28 mmol/L N 22-32 Anion Gap 2 mmol/L N 2-11 Glucose 102 mg/dL High 70-100 Blood Urea Nitrogen 27 mg/dL High 6-24 Creatinine 1.27 mg/dL High 0.67-1.17 BUN/Creatinine Ratio 21.3 High 8-20 Calcium 9.0 mg/dL N 8.6-10.3 Total Protein 6.5 g/dL N 6.4-8.9 Albumin 3.4 g/dL N 3.2-5.2 Globulin 3.1 g/dL N 2-4 Albumin/Globulin Ratio 1.1 N 1-3 Total Bilirubin 0.40 mg/dL N 0.2-1.0 Alkaline Phosphatase 67 U/L N 34-104 Alt 20 U/L N 7-52 Ast 22 U/L N 13-39 Egfr Non- 53.9 >60 Egfr 65.2 >60 2 Laboratory test 02/25/2018 [facility] Lactic Acid 0.9 mmol/L N 0.5-2.0 [address] [place] [address] [phone] Urine Culture And 11/16/2017 [facility] Urine SEE RESULT 4 , [address] [place] [address] [phone] Urinalysis Profile 11/16/2017 [facility] Urine Color Straw [address] [place] [address] [phone] Urine Appearance Clear Urine Specific Bourbon 1.010 N 1.010-1.030 Urine pH 6.0 N 5-9 Urine Urobilinogen Negative Negative Urine Ketones Negative Negative Urine Protein Negative Negative Urine Leukocytes Negative Negative Urine Blood Negative Negative Urine Nitrite Negative Negative Urine Bilirubin Negative Negative Urine Glucose Negative Negative Urine White Blood Cell Trace(0-5/hpf) Absent Urine Red Blood Cell Trace(0-2/hpf) Absent Urine Bacteria Absent Absent Urine Squamous Epithelial Cell Present Abnormal Absent Laboratory test 10/11/2017 [facility] B-Type 96 pg/mL [address] [place] [place] [address] Peptide BNP [phone] CBC Auto Diff 10/11/2017 [facility] White Blood Count 7.1 10^3/ uL N 3.5-[address] [place] [address] [phone] Red Blood Count 4.43 10^6/uL N 4.00-5.40 Hemoglobin 13.7 g/dL Low 14.0-18.0 Hematocrit 40 % Low 42-52 Mean Corpuscular Volume 91 fL N 80-94 Mean Corpuscular Hemoglobin 31 pg N 27-31 Mean Corpuscular HGB Conc 34 g/dL N 31-36 Red Cell Distribution Width 15 % N 10.5-15 Platelet Count 174 10^3/uL N 150-450 Mean Platelet Volume 8.7 um3 N 7.4-10.4 Abs Neutrophils 4.6 10^3/uL N 1.5-7.7 Abs Lymphocytes 1.1 10^3/uL N 1.0-4.8 Abs Monocytes 0.9 10^3/uL High 0-0.8 Abs Eosinophils 0.4 10^3/uL N 0-0.6 Abs Basophils 0.1 10^3/uL N 0-0.2 Abs Nucleated RBC 0 10^3/uL Granulocyte % 65.4 % N 38-83 Lymphocyte % 15.8 % Low 25-47 Monocyte % 12.3 % High 0-7 Eosinophil % 5.6 % N 0-6 Basophil % 0.9 % N 0-2 Nucleated Red Blood Cells % 0 Comp Metabolic Panel 10/11/2017 [facility] Sodium 137 mmol/L N 135-[address] [place] [address] [phone] Potassium 4.1 mmol/L N 3.5-5.0 Chloride 103 mmol/L N 101-111 Co2 Carbon Dioxide 30 mmol/L N 22-32 Anion Gap 4 mmol/L N 2-11 Glucose 107 mg/dL High 70-100 Blood Urea Nitrogen 21 mg/dL N 6-24 Creatinine 1.17 mg/dL N 0.67-1.17 BUN/Creatinine Ratio 17.9 N 8-20 Calcium 9.3 mg/dL N 8.6-10.3 Total Protein 7.1 g/dL N 6.4-8.9 Albumin 3.5 g/dL N 3.2-5.2 Globulin 3.6 g/dL N 2-4 Albumin/Globulin Ratio 1.0 N 1-3 Total Bilirubin 0.70 mg/dL N 0.2-1.0 Alkaline Phosphatase 68 U/L N 34-104 Alt 24 U/L N 7-52 Ast 22 U/L N 13-39 Egfr Non- 59.2 >60 Egfr 71.7 >60 7 Laboratory test 10/11/2017 [facility] Acetaminophen < 15 g/mL [address] [place] [address] [phone] Alcohol < 10 mg/dL N <10 Salicylate < 2.50 mg/dL <30 TSH (Thyroid Stim Horm) 1.06 mcIU/mL N 0.34-5.60 Urine Drug 10/11/2017 [facility] Amphetamine Ur None Detected None Detect SCR ED & [address] [place] [address] [phone] Barbiturates Urine Screen None Detected None Detect Benzodiazepine Urine Screen None Detected None Detect Urine Cannabinoids Screen None Detected None Detect Urine Cocaine Screen None Detected None Detect Urine Opiates Screen None Detected None Detect Urine Phencyclidine Screen None Detected None Detect 9 Urinalysis Profile 10/11/2017 [facility] Urine Color Yellow [address] [place] [address] [phone] Urine Appearance Clear Urine Specific Bourbon 1.016 N 1.010-1.030 Urine pH 6.0 N 5-9 Urine Urobilinogen Negative Negative Urine Ketones Negative Negative Urine Protein Negative Negative Urine Leukocytes Negative Negative Urine Blood Negative Negative * * Abnormal Negative 10 Urine Nitrite Negative Negative Urine Bilirubin Negative Negative Urine Glucose Negative Negative Urine Culture And 08/30/2017 [facility] Urine Culture SEE RESULT 11, [address] [place] [address] [phone] Urinalysis Profile 08/10/2017 [facility] Urine Color Yellow [address] [place] [address] [phone] Urine Appearance Clear Urine Specific Bourbon 1.019 N 1.010-1.030 Urine pH 6.0 N 5-9 Urine Urobilinogen Negative Negative Urine Ketones Negative Negative Urine Protein Negative Negative Urine Leukocytes Negative Negative Urine Blood Negative Negative Urine Nitrite Negative Negative Urine Bilirubin Negative Negative Urine Glucose Negative Negative Urine Culture And 08/10/2017 [facility] Urine Culture SEE RESULT [address] [place] [address] [phone] Lipid Profile 08/01/2017 [facility] Triglycerides 110 mg/dL 15, 16 (Trig/Chol/HDL) [address] [place] [address] [phone] Cholesterol 158 mg/dL 17 HDL Cholesterol 47.1 mg/dL 18 LDL Cholesterol 89 mg/dL 19 Comp Metabolic Panel 08/01/2017 [facility] Sodium 139 mmol/L N [address] [place] [address] [phone] Potassium 4.4 mmol/L N 3.5-5.0 Chloride 103 mmol/L N 101-111 Co2 Carbon Dioxide 28 mmol/L N 22-32 Anion Gap 8 mmol/L N 2-11 Glucose 94 mg/dL N 70-100 Blood Urea Nitrogen 24 mg/dL N 6-24 Creatinine 1.24 mg/dL High 0.67-1.17 BUN/Creatinine Ratio 19.4 N 8-20 Calcium 9.5 mg/dL N 8.6-10.3 Total Protein 7.0 g/dL N 6.4-8.9 Albumin 3.5 g/dL N 3.2-5.2 Globulin 3.5 g/dL N 2-4 Albumin/Globulin Ratio 1.0 N 1-3 Total Bilirubin 0.40 mg/dL N 0.2-1.0 Alkaline Phosphatase 67 U/L N 34-104 Alt 24 U/L N 7-52 Ast 25 U/L N 13-39 Egfr Non- 55.4 >60 Egfr 71.3 >60 20 Rapid Influenza 03/16/2017 [facility] Influenza A NEGATIVE Negative 21 A & B Molecular [address] [place] [address] [phone] Influenza B Molecular NEGATIVE Negative Basic Metabolic 02/03/2017 [facility] Sodium 131 mmol/L Low 133-145 Panel [address] [place] [address] [phone] Potassium 4.1 mmol/L N 3.5-5.0 Chloride 95 mmol/L Low 101-111 Co2 Carbon Dioxide 31 mmol/L N 22-32 Anion Gap 5 mmol/L N 2-11 Glucose 92 mg/dL N 70-100 Blood Urea Nitrogen 24 mg/dL N 6-24 Creatinine 1.24 mg/dL High 0.67-1.17 BUN/Creatinine Ratio 19.4 N 8-20 Calcium 9.7 mg/dL N 8.6-10.3 Egfr Non- 55.5 >60 Egfr 71.4 >60 22 Basic Metabolic 08/03/2016 [facility] Sodium 128 mmol/L Low 133-145 Panel [address] [place] [address] [phone] Potassium 4.5 mmol/L N 3.5-5.0 Chloride 94 mmol/L Low 101-111 Co2 Carbon Dioxide 29 mmol/L N 22-32 Anion Gap 5 mmol/L N 2-11 Glucose 102 mg/dL High 70-100 Blood Urea Nitrogen 23 mg/dL N 6-24 Creatinine 1.02 mg/dL N 0.67-1.17 BUN/Creatinine Ratio 22.5 High 8-20 Calcium 9.3 mg/dL N 8.6-10.3 Egfr Non- 69.6 N >60 Egfr 89.5 N >60 23 Lipid Profile 07/12/2016 [facility] Triglycerides 115 mg/dL N 24, 25 (Trig/Chol/HDL) [address] [place] [address] [phone] Cholesterol 142 mg/dL N 26 HDL Cholesterol 44.2 mg/dL N 27 LDL Cholesterol 75 mg/dL N 28 Comp Metabolic Panel 07/12/2016 [facility] Sodium 128 mmol/L Low 133-[address] [place] [address] [phone] Potassium 3.8 mmol/L N 3.5-5.0 Chloride 96 mmol/L Low 101-111 Co2 Carbon Dioxide 26 mmol/L N 22-32 Anion Gap 6 mmol/L N 2-11 Glucose 89 mg/dL N 70-100 Blood Urea Nitrogen 21 mg/dL N 6-24 Creatinine 1.07 mg/dL N 0.67-1.17 BUN/Creatinine Ratio 19.6 N 8-20 Calcium 9.2 mg/dL N 8.6-10.3 Total Protein 6.8 g/dL N 6.4-8.9 Albumin 3.6 g/dL N 3.2-5.2 Globulin 3.2 g/dL N 2-4 Albumin/Globulin Ratio 1.1 N 1-3 Total Bilirubin 0.70 mg/dL N 0.2-1.0 Alkaline Phosphatase 52 U/L N 34-104 Alt 14 U/L N 7-52 Ast 19 U/L N 13-39 Egfr Non- 65.8 N >60 Egfr 84.7 N >60 29 Urinalysis Profile 06/15/2016 [facility] Urine Color Yellow N [address] [place] [address] [phone] Urine Appearance Clear N Urine Specific [place] 1.017 N 1.010-1.030 Urine pH 5.0 N 5-9 Urine Urobilinogen Negative N Negative Urine Ketones Negative N Negative Urine Protein Negative N Negative Urine Leukocytes Negative N Negative Urine Blood Negative N Negative Urine Nitrite Negative N Negative Urine Bilirubin Negative N Negative Urine Glucose Negative N Negative Urine Culture And 06/15/2016 [facility] Urine Culture SEE RESULT [address] [place] [address] [phone] Laboratory test 08/27/2015 [facility] Erythrocyte Sed 35 mm/Hr N 0-[address] [place] [address] [phone] C Reactive Protein 13.76 mg/L High < 5.00 32 Uric Acid 8.3 mg/dL High 4.4-7.6 Lipid Profile 07/21/2015 [facility] Triglycerides 99 mg/dL N 33 (Trig/Chol/HDL) [address] [place] [address] [phone] Cholesterol 150 mg/dL N 34 HDL Cholesterol 50.1 mg/dL N 35 LDL Cholesterol 80 mg/dL N 36 Comp Metabolic Panel 07/21/2015 [facility] Sodium 137 mmol/L N 133-[address] [place] [address] [phone] Potassium 4.0 mmol/L N 3.5-5.0 Chloride 103 mmol/L N 101-111 Co2 Carbon Dioxide 26 mmol/L N 22-32 Anion Gap 8 mmol/L N 2-11 Glucose 93 mg/dL N 70-100 Blood Urea Nitrogen 25 mg/dL High 6-24 Creatinine 1.33 mg/dL High 0.67-1.17 BUN/Creatinine Ratio 18.8 N 8-20 Calcium 9.5 mg/dL N 8.6-10.3 Total Protein 6.9 g/dL N 6.4-8.9 Albumin 3.9 g/dL N 3.2-5.2 Globulin 3.0 g/dL N 2-4 Albumin/Globulin Ratio 1.3 N 1-3 Total Bilirubin 0.70 mg/dL N 0.2-1.0 Alkaline Phosphatase 54 U/L N 34-104 Alt 23 U/L N 7-52 Ast 26 U/L N 13-39 Egfr Non- 51.3 N >60 Egfr 66.0 N >60 37 Laboratory test 07/21/2015 [facility] PSA Screening 4.854 High 0-4.000 [address] ng/[place] [address] [phone] Lipid Profile 04/08/2014 [facility] Triglycerides 133 mg/dL N 39 (Trig/Chol/HDL) [address] [place] [address] [phone] Cholesterol 170 mg/dL N 40 HDL Cholesterol 51.4 mg/dL N 41 LDL Cholesterol 92 mg/dL N 42 Comp Metabolic Panel 04/08/2014 [facility] Sodium 134 mmol/L N 133-[address] [place] [address] [phone] Potassium 4.3 mmol/L N 3.5-5.0 Chloride 103 mmol/L N 101-111 Co2 Carbon Dioxide 26 mmol/L N 22-32 Anion Gap 5 mmol/L N 2-11 Glucose 93 mg/dL N 70-100 Blood Urea Nitrogen 23 mg/dL N 6-24 Creatinine 1.21 mg/dL High 0.67-1.17 BUN/Creatinine Ratio 19.0 N 8-20 Calcium 9.6 mg/dL N 8.6-10.3 Total Protein 7.4 g/dL N 6.4-8.9 Albumin 4.0 g/dL N 3.2-5.2 Globulin 3.4 g/dL N 2-4 Albumin/Globulin Ratio 1.2 N 1-3 Total Bilirubin 0.70 mg/dL N 0.2-1.0 Alkaline Phosphatase 61 U/L N 34-104 Alt 19 U/L N 7-52 Ast 26 U/L N 13-39 Egfr Non- 57.6 N >60 Egfr 74.0 N >60 43 Laboratory test 04/08/2014 [facility] PSA Diagnostic 3.484 N 0 -4.000 [address] ng/[place] [address] [phone] Creatinine 08/06/2013 [facility] Creatinine 1.14 mg/dL N 0.67- 1.[address] [place] [address] [phone] Egfr Non- 61.7 N >60 Egfr 79.3 N >60 45 CBC No Diff 04/25/2013 [facility] White Blood 6.3 10^3/uL 4.8 -10.[address] [place] [address] [phone] Red Blood Count 4.52 10^6/uL 4.0-5.4 Hemoglobin 13.6 g/dL Low 14.0-18.0 Hematocrit 42 % 42-52 Mean Corpuscular Volume 92 fL 80-94 Mean Corpuscular Hemoglobin 30 pg 27-31 Mean Corpuscular HGB Conc 33 g/dL 31-36 Red Cell Distribution Width 13 % 10.5-15 Platelet Count 231 10^3/uL 150-450 Mean Platelet Volume 9 um3 7.4-10.4 Inr/Protime 04/25/2013 [facility] Inr 0.89 0.85-1.[address] [place] [address] [phone] Basic Metabolic 04/25/2013 [facility] Sodium 138 mmol/L 133- [address] [place] [address] [phone] Potassium 4.1 mmol/L 3.5-5.0 Chloride 101 mmol/L 101-111 Co2 Carbon Dioxide 30.0 mmol/L 22-32 Anion Gap 7.0 mmol/L 2-11 Glucose 82 mg/dL 70-100 Blood Urea Nitrogen 19 mg/dL 6-24 Creatinine 1.00 mg/dL 0.50-1.40 BUN/Creatinine Ratio 19.0 8-20 Calcium 9.9 mg/dL 8.1-9.9 Egfr Non- 71.9 >60 Egfr 92.5 >60 46 CBC Auto Diff 11/27/2012 [facility] White Blood 5.2 10^3/uL 4.8-10.[address] [place] [address] [phone] Red Blood Count 4.29 10^6/uL 4.0-5.4 Hemoglobin 13.7 g/dL Low 14.0-18.0 Hematocrit 40 % Low 42-52 Mean Corpuscular Volume 94 fL 80-94 Mean Corpuscular Hemoglobin 32 pg High 27-31 Mean Corpuscular HGB Conc 34 g/dL 31-36 Red Cell Distribution Width 14 % 10.5-15 Platelet Count 198 10^3/uL 150-450 Mean Platelet Volume 9 um3 7.4-10.4 Abs Neutrophils 3.3 10^3/uL 1.5-7.7 Abs Lymphocytes 1.2 10^3/uL 1.0-4.8 Abs Monocytes 0.5 10^3/uL 0-0.8 Abs Eosinophils 0.1 10^3/uL 0-0.6 Abs Basophils 0 10^3/uL 0-0.2 Abs Nucleated RBC 0 10^3/uL Granulocyte % 63.4 % 38-83 Lymphocyte % 22.7 % Low 25-47 Monocyte % 10.6 % High 1-9 Eosinophil % 2.5 % 0-6 Basophil % 0.8 % 0-2 Nucleated Red Blood Cells % 0.1 Comp Metabolic Panel 11/27/2012 [facility] Sodium 138 mmol/L 133-[address] [place] [address] [phone] Potassium 3.9 mmol/L 3.5-5.0 Chloride 102 mmol/L 101-111 Co2 Carbon Dioxide 30.0 mmol/L 22-32 Anion Gap 6.0 mmol/L 2-11 Glucose 94 mg/dL 70-100 Blood Urea Nitrogen 17 mg/dL 6-24 Creatinine 0.90 mg/dL 0.50-1.40 BUN/Creatinine Ratio 18.9 8-20 Calcium 9.3 mg/dL 8.1-9.9 Total Protein 6.7 g/dL 6.2-8.1 Albumin 3.9 g/dL 3.2-5.2 Globulin 2.8 g/dL 2-4 Albumin/Globulin Ratio 1.4 1-3 Total Bilirubin 0.9 mg/dL 0.4-1.5 Alkaline Phosphatase 51 U/L 30-110 Alt 4 U/L Low 14-54 Ast 30 U/L 12-42 Egfr Non- 81.2 >60 Egfr 104.4 >60 47 Lipid Profile 11/27/2012 [facility] Triglycerides 77 mg/dL 40 -200 (Trig/Chol/HDL) [address] [place] [address] [phone] Cholesterol 147 mg/dL Less than 200 HDL Cholesterol 61 mg/dL High 40-60 48 Cholesterol/HDL Ratio 2.4 Average 1-4.44 LDL Cholesterol 70.6 Less Than 100 49 Laboratory test 05/21/2012 [facility] PSA Diagnostic 1.83 ng/mL 0-4.0 [address] [place] [address] [phone] CBC Auto Diff 01/06/2012 [facility] White Blood 5.6 4.8-10.[address] Count 10^3/[place] [address] [phone] Red Blood Count 4.30 10^6/uL 4.0-5.4 Hemoglobin 13.5 g/dL Low 14.0-18.0 Hematocrit 40 % Low 42-52 Mean Corpuscular Volume 93 fL 80-94 Mean Corpuscular Hemoglobin 31 pg 27-31 Mean Corpuscular HGB Conc 34 g/dL 31-36 Red Cell Distribution Width 13 % 10.5-15 Platelet Count 190 10^3/uL 150-450 Mean Platelet Volume 9 um3 7.4-10.4 Abs Neutrophils 3.1 10^3/uL 1.5-7.7 Abs Lymphocytes 1.4 10^3/uL 1.0-4.8 Abs Monocytes 0.9 10^3/uL High 0-0.8 Abs Eosinophils 0.2 10^3/uL 0-0.6 Abs Basophils 0 10^3/uL 0-0.2 Abs Nucleated RBC 0 10^3/uL Granulocyte % 55.7 % 38-83 Lymphocyte % 24.9 % Low 25-47 Monocyte % 15.4 % High 1-9 Eosinophil % 3.4 % 0-6 Basophil % 0.6 % 0-2 Nucleated Red Blood Cells % 0.1 Comp Metabolic Panel 01/06/2012 [facility] Sodium 138 mmol/L 133-145 [address] [place] [address] [phone] Potassium 4.0 mmol/L 3.5-5.0 Chloride 101 mmol/L 101-111 Co2 Carbon Dioxide 31.0 mmol/L 22-32 Anion Gap 6.0 mmol/L 2-11 Glucose 93 mg/dL 70-100 Blood Urea Nitrogen 18 mg/dL 6-24 Creatinine 1.00 mg/dL 0.50-1.40 BUN/Creatinine Ratio 18.0 8-20 Calcium 10.0 mg/dL High 8.1-9.9 Total Protein 7.4 GM/DL 6.2-8.1 Albumin 4.2 GM/DL 3.2-5.2 Globulin 3.2 GM/DL 2-4 Albumin/Globulin Ratio 1.3 1-3 Total Bilirubin 1.0 mg/dL 0.1-1.0 51 Alkaline Phosphatase 60 U/L 30-110 Alt 19 U/L 14-54 Ast 31 U/L 12-42 Egfr Non- 72.1 >60 Egfr 92.7 >60 52 Lipid Profile 01/06/2012 [facility] Triglycerides 63 mg/dL 40 -200 (Trig/Chol/HDL) [address] [place], [place] [id number] [phone] Cholesterol 160 mg/dL Less than 200 53 HDL Cholesterol 72 mg/dL High 40-60 54 Cholesterol/HDL Ratio 2.2 AVERAGE 1-4.44 LDL Cholesterol 75.4 mg/dL Less Than 100 Laboratory test 06/02/2011 [facility] PSA,Diagnostic 1.38 NG/ML 0-4 [address] [place] [address] [phone] Laboratory test 12/01/2010 [facility] PSA,Diagnostic 1.16 NG/ML 0-4 [address] [place] [address] [phone] DR [facility] 11/02/2010 TSH 0.94 0.34-5.6 Panel MIU/ML 0 Comp Metabolic 11/02/2010 Sodium 141 mmol/L 135-145 Panel Potassium 4.0 mmol/L 3.5-5.0 Chloride 103 mmol/L 101-111 Co2 (Carbon Dioxide) 31.0 mmol/L 22-32 Anion Gap 7.0 mmol/L 2-11 57 Glucose 101 mg/dL High 70-100 BUN 14 mg/dL 6-24 Creatinine 1.00 mg/dL 0.50-1.40 One Over Creatinine 1.00 BUN/Creatinine Ratio 14.0 8-20 Calcium 9.6 mg/dL 8.1-9.9 Total Protein 7.0 GM/DL 6.2-8.1 Albumin 4.1 GM/DL 3.2-5.2 Globulin 2.9 GM/DL 2-4 Albumin/Globulin Ratio 1.4 1-3 Bilirubin Total 0.9 mg/dL 0.4-1.5 58 Alkaline Phosphatase 51 U/L 39-117 Alt (SGPT) 16 U/L Low 17-63 Ast (Sgot) 24 U/L 12-42 eGFR Non- 72.3 > 60 eGFR 92.9 > 60 59 Lipid Profile (Trig/Chol/HDL) 11/02/2010 Triglyceride 99 mg/dL 40-200 Cholesterol 141 mg/dL Less Than 200 60 High Density Lipoprotein 50 mg/dL 40-60 61 Cholesterol/HDL Ratio 2.82 AVERAGE 1-4.97 Low Density Lipoprotein 71 mg/dL Less Than 100 62 CBC Auto Diff 11/02/2010 White Blood Count 5.2 CUMM 4.8-10.8 Red Cell Count 4.21 CUMM Low 4.6-6.2 Hemoglobin 13.4 g/dL Low 14.0-18.0 Hematocrit 39 % Low 42-52 Mean Corpuscular Volume 92 um3 80-94 Mean Corpuscular Hemoglob 32 pg High 27-31 Mean Corpuscular HGB Cone 35 g/dL 32-36 Redcell Distribution WDTH 14 % 10.5-15 Platelet Count 209 CUMM 150-450 Mean Platelet Volume 9.1 um3 7.4-10.4 Gran % 60.8 % 38-83 Lymph % 23.7 % Low 25-47 Mononuclear % 10.9 % High 1-9 Eosinophil % 4.0 % 0-6 Basophil % 0.6 % 0-2 Abs Lymphs 1.2 1.0-4.8 Abs Mononuclear 0.6 0-0.8 Absolute Neutrophil Count 3.1 1.5-7.7 Abs Eosinophils 0.2 0-0.6 Abs Basophils 0 0-0.2 Laboratory test 06/15/2010 [facility] PSA,Diagnostic 0.83 NG/ML 0-4 63 finding [address] [place], [place] [id number] [phone] Laboratory test 01/22/2010 [facility] Release Date 01/25/10 64 finding [address] [place] [address] [phone] RBC Leukoreduced 01/22/2010 [facility] RBC Leukoreduced [id number] 101 [facility] O <[place] [address] NOTE> [phone] RBC Leukoreduced [id number] <SEE NOTE> 66 Patient Blood Type O POSITIVE Antibody Screen NEGATIVE Comp Metabolic Panel 10/21/2009 [facility] Sodium 139 mmol/L 135-145 [address] [place] [address] [phone] Potassium 3.8 mmol/L 3.5-5.0 Chloride 102 mmol/L 101-111 Co2 (Carbon Dioxide) 29.0 mmol/L 22-32 Anion Gap 8.0 mmol/L 2-11 67 Glucose 85 mg/dL 70-100 68 BUN 18 mg/dL 6-24 Creatinine 1.00 mg/dL 0.50-1.40 One Over Creatinine 1.00 BUN/Creatinine Ratio 18.0 8-20 Calcium 9.5 mg/dL 8.1-9.9 69 Total Protein 7.2 GM/DL 6.2-8.1 Albumin 4.0 GM/DL 3.2-5.2 Globulin 3.2 GM/DL 2-4 Albumin/Globulin Ratio 1.3 1-3 Bilirubin Total 0.9 mg/dL 0.4-1.5 70 Alkaline Phosphatase 67 U/L 39-117 Alt (SGPT) 18 U/L 17-63 Ast (Sgot) 28 U/L 12-42 eGFR Non- 77.0 > 60 eGFR 93.2 > [address] [facility] 10/21/2009 [facility] TSH 0.92 MIU/ML 0.34- 5.[address] [place] [address] [phone] CBC With 10/21/2009 [facility] White Blood 6.1 CUMM 4.8-10.8 Electronic Diff [address] [place] [address] [phone] Red Cell Count 4.51 CUMM Low 4.6-6.2 Hemoglobin 14.3 g/dL 14.0-18.0 Hematocrit 42 % 42-52 Mean Corpuscular Volume 93 um3 80-94 Mean Corpuscular Hemoglob 32 pg High 27-31 Mean Corpuscular HGB Cone 34 g/dL 32-36 Redcell Distribution WDTH 14 % 10.5-15 Platelet Count 217 CUMM 150-450 Mean Platelet Volume 8.2 um3 7.4-10.4 Gran % 66.3 % 38-83 Lymph % 18.9 % Low 25-47 Mononuclear % 11.4 % High 1-9 Eosinophil % 2.8 % 0-6 Basophil % 0.6 % 0-2 Abs Lymphs 1.2 1.0-4.8 Abs Mononuclear 0.7 0-0.8 Absolute Neutrophil Count 4.0 1.5-7.7 Abs Eosinophils 0.2 0-0.6 Abs Basophils 0 0-0.2 72 Lipid Profile 10/21/2009 [facility] Triglyceride 121 mg/dL 40 -200 (Trig/Chol/HDL) [address] [place] [address] [phone] Cholesterol 163 mg/dL Less Than 200 73 High Density Lipoprotein 52 mg/dL 40-60 74 Cholesterol/HDL Ratio 3.13 AVERAGE 1-4.97 Low Density Lipoprotein 87 mg/dL Less Than 100 75 Laboratory test 06/15/2009 [facility] PSA,Diagnostic 0.57 NG/ML 0-4 [address] [place] [address] [phone] Lipid Profile 10/06/2008 [facility] Triglyceride 73 mg/dL 40- 200 77 (Trig/Chol/HDL) [address] [place] [address] [phone] Cholesterol 153 mg/dL Less Than 200 78 High Density Lipoprotein 52 mg/dL 40-60 79 Cholesterol/HDL Ratio 2.94 AVERAGE 1-4.97 Low Density Lipoprotein 86 mg/dL Less Than 100 80 Comp Metabolic Panel 10/06/2008 [facility] Sodium 138 mmol/L 135-[address] [place] [address] [phone] Potassium 4.0 mmol/L 3.5-5.0 Chloride 106 mmol/L 101-111 Co2 (Carbon Dioxide) 30.0 mmol/L 22-32 Anion Gap 2.0 mmol/L 2-11 81 Glucose 102 mg/dL High 70-100 82 BUN 22 mg/dL 6-24 Creatinine 1.00 mg/dL 0.50-1.40 One Over Creatinine 1.00 BUN/Creatinine Ratio 22.0 High 8-20 Calcium 9.1 mg/dL 8.1-9.9 83 Total Protein 6.2 GM/DL 6.2-8.1 Albumin 3.5 GM/DL 3.2-5.2 Globulin 2.7 GM/DL 2-4 Albumin/Globulin Ratio 1.3 1-3 Bilirubin Total 0.9 mg/dL 0.4-1.5 84 Alkaline Phosphatase 64 U/L 39-117 Alt (SGPT) 22 U/L 17-63 Ast (Sgot) 28 U/L 12-42 eGFR Non- 77.2 > 60 eGFR 93.4 > 60 85 CBC With 10/06/2008 [facility] White Blood 6.4 CUMM 4.8-10.8 Electronic Diff [address] [place] [address] [phone] Red Cell Count 4.12 CUMM Low 4.6-6.2 Hemoglobin 12.9 g/dL Low 14.0-18.0 Hematocrit 39 % Low 42-52 Mean Corpuscular Volume 93 um3 80-94 Mean Corpuscular Hemoglob 31 pg 27-31 Mean Corpuscular HGB Cone 33 g/dL 32-36 Redcell Distribution WDTH 13 % 10.5-15 Platelet Count 273 CUMM 150-450 Mean Platelet Volume 8.1 um3 7.4-10.4 Gran % 69.8 % 38-83 Lymph % 15.6 % Low 25-47 Mononuclear % 10.4 % High 1-9 Eosinophil % 3.6 % 0-6 Basophil % 0.6 % 0-2 Abs Lymphs 1.0 1.0-4.8 Abs Mononuclear 0.7 0-0.8 Absolute Neutrophil Count 4.4 1.5-7.7 Abs Eosinophils 0.2 0-0.6 Abs Basophils 0 0-0.2 86 Laboratory test 10/06/2008 [facility] TSH 0.61 MIU/ML 0.34- 5.60 finding [address] [place] [address] [phone] Laboratory test 06/10/2008 [facility] PSA,Diagnost 0.40 NG/ML 0-4 87 finding [address] [place] [address] [phone] Laboratory test 11/27/2007 [facility] PSA,Diagnost 0.35 NG/ML 0-4 88 finding [address] [place] [address] [phone] Comp Metabolic 10/02/2007 [facility] Sodium 141 mmol/L 135- 145 89 Panel [address] [place] [address] [phone] Potassium 3.7 mmol/L 3.5-5.0 Chloride 107 mmol/L 101-111 Co2 (Carbon Dioxide) 31.0 mmol/L 22-32 Anion Gap 3.0 mmol/L 2-11 90 Glucose 92 mg/dL 70-105 BUN 15 mg/dL 6-24 Creatinine 1.1 mg/dL 0.5-1.4 One Over Creatinine 0.90 BUN/Creatinine Ratio 13.6 8-20 Calcium 9.3 mg/dL 8.1-9.9 91 Total Protein 7.0 GM/DL 6.2-8.1 Albumin 3.7 GM/DL 3.2-5.2 Globulin 3.3 GM/DL 2-4 Albumin/Globulin Ratio 1.1 1-3 Bilirubin Total 0.8 mg/dL 0.4-1.5 Alkaline Phosphatase 67 U/L 39-117 Alt (SGPT) 21 U/L 17-63 Ast (Sgot) 32 U/L 12-42 Lipid Profile 10/02/2007 [facility] Triglyceride 88 mg/dL 40- 200 (Trig/Chol/HDL) [address] [place] [address] [phone] Cholesterol 186 mg/dL Less Than 200 92 High Density Lipoprotein 52 mg/dL 40-60 93 Cholesterol/HDL Ratio 3.58 AVERAGE 1-4.97 Low Density Lipoprotein 116 mg/dL High Less Than 100 94 Laboratory test 10/02/2007 [facility] TSH 0.44 MIU/ML 0.34- 5.[address] [place] [address] [phone] CBC With 10/02/2007 [facility] White Blood 4.9 CUMM 4.8-10.8 Electronic Diff [address] [place] [address] [phone] Red Cell Count 4.32 CUMM Low 4.6-6.2 Hemoglobin 13.2 g/dL Low 14.0-18.0 Hematocrit 39 % Low 42-52 Mean Corpuscular Volume 90 um3 80-94 Mean Corpuscular Hemoglob 31 pg 27-31 Mean Corpuscular HGB Cone 34 g/dL 32-36 Redcell Distribution WDTH 14 % 10.5-15 Platelet Count 240 CUMM 150-450 Mean Platelet Volume 8.8 um3 7.4-10.4 Gran % 63.8 % 38-83 Lymph % 20.2 % 20-45 Mononuclear % 12.3 % High 1-9 Eosinophil % 2.9 % 0-6 Basophil % 0.8 % 0-2 Abs Lymphs 1.0 1.0-4.8 Abs Mononuclear 0.6 0-0.8 Absolute Neutrophil Count 3.1 1.5-7.7 Abs Eosinophils 0.1 0-0.6 Abs Basophils 0 0-0.2 Laboratory test 05/28/2007 [facility] PSA Screening 0.24 NG/ML 0-4 [address] [place] [address] [phone] 1 Troponin-I testing on Plasma Separator Tubes (PST) has a known false positive rate of 0.20-0.40%. All positive troponins reflex immediate secondary confirmatory testing. 2 Because ethnic data is not always readily available, this report includes an eGFR for both -Americans and non- Americans. The National Kidney Disease Education Program (NKDEP) does not endorse the use of the MDRD equation for patients that are not between the ages of 18 and 70, are , have extremes of body size, muscle mass, or nutritional status, or are non- or non-. According to the National Kidney Foundation, irrespective of diagnosis, the stage of the disease is based on the level of kidney function: Stage Description GFR(mL/min/1.73 m(2)) 1 Kidney damage with normal or decreased GFR 90 2 Kidney damage with mild decrease in GFR 60-89 3 Moderate decrease in GFR 30-59 4 Severe decrease in GFR 15-29 5 Kidney failure <15 (or dialysis) [address] [facility] Severe Sepsis and Septic Shock Management Bundle Measure requires all lactic acids initially measuring >2.0 mmol/L be repeated. 4 [id number] 5 SEE RESULT BELOW Name: ZO SEGAL : [address]: Josiah Pack III, MD Acct: [id number] Unit: [id number] AGE: 87 Location: [facility] Re11/16/17 SEX: M Status: REG REF SPEC: [id number] ARELY: 11/16/[address] [facility] [address]: Josiah Pack III, MD REQ: [id number] RECD: 11/16/17 STATUS: NIKOLAI HOWARD DR: Iliana _ SOURCE: URINE SPDESC: ORDERED: Urine Culture COMMENTS: [id number] QUERIES: Urine Source: Random Procedure Result Reported Site Urine Culture Final 11/20/17- 1414 ML Organism 1 PROTEUS MIRABILIS [place] Count 10-25,000 (Moderate) CFU/ML 1. PROTEUS MIRABILIS M.I.C. RX --------- ------ Ampicillin <=2 S Cefazolin 8 S Cefepime <=1 S Ceftriaxone <=1 S Ciprofloxacin <=0.25 S Gentamicin <=1 S Levofloxacin <=0.12 S Meropenem 0.5 S Nitrofurantoin 128 R Tetracycline >=16 R Pipercillin/Tazobactam <=4 S Trimethoprim/Sulfamethoxazole <=20 S Amoxicillin/Clavulanic Acid <=2 S Aztreonam <=1 S Contact the Microbiology Department for any additional antibiotic reporting. * [facility] - Main Lab . END OF REPORT DEPARTMENT OF PATHOLOGY, [address] [place] [address] Ramiro Palomino M.D. Director [facility] # [id number] 6 >100 to <200 pg/mL: likely compensated congestive heart failure (CHF) 200 to 400 pg/mL: likely moderate CHF >400 pg/mL: likely moderate to severe CHF 7 Because ethnic data is not always readily available, this report includes an eGFR for both -Americans and non- Americans. The National Kidney Disease Education Program (NKDEP) does not endorse the use of the MDRD equation for patients that are not between the ages of 18 and 70, are , have extremes of body size, muscle mass, or nutritional status, or are non- or non-. According to the National Kidney Foundation, irrespective of diagnosis, the stage of the disease is based on the level of kidney function: Stage Description GFR(mL/min/1.73 m(2)) 1 Kidney damage with normal or decreased GFR 90 2 Kidney damage with mild decrease in GFR 60-89 3 Moderate decrease in GFR 30-59 4 Severe decrease in GFR 15-29 5 Kidney failure <15 (or dialysis) 8 Therapeutic concentration: <50 ug/mL Toxic concentration: >120 ug/mL 9 The urine specimen was tested at the listed cutoffs: Drug class test level (ng/mL) Amphetamines 500 Barbiturates 200 Benzodiazepine metabolites 200 Cocaine metabolites 150 Cannabinoids 50 Opiates 300 Pcp 25 Specimen was received without chain of custody. Results should be used for medical purposes only. 10 *Ascorbic acid is present which may interfere with detection of blood. 11 [id number] 12 SEE RESULT BELOW Name: ZO SEGAL : [address]: Josiah Pack III, MD Acct: [id number] Unit: [id number] AGE: 87 Location: [facility] Re08/30/17 SEX: M Status: REG REF SPEC: [id number] ARELY: 08/30/17-[address]: Josiah Pack III, MD REQ: [id number] RECD: 08/30/17-121 STATUS: COMP _ SOURCE: URINE SPDESC: ORDERED: Urine Culture COMMENTS: [id number] Procedure Result Reported Site Urine Culture Final 09/01/17- 0945 ML Organism 1 AEROCOCCUS URINAE [place] Count 75-100,000 (Many) CFU/ML Organism 2 NORMAL GAGE [place] Count 1-10,000 (Few) CFU/ML Aerococcus isolates are too fastidious for routine susceptibility studies. Aerococcus are usually susceptible to penicillin, amoxicillin, piperacillin, cefipime, rifampin and vancomycin. Moderate to good activity occurs with the quinolones, tetracyclines and erythromycin. ([employer] [place] [employer] Textbook of Diagnostic Microbiology 6th Ed. 2006, p. 705-6.) * ML - Main Lab . END OF REPORT DEPARTMENT OF PATHOLOGY, [address] [place] [address] Ramiro Palomino M.D. Director [facility] # [id number] 14 SEE RESULT BELOW Name: ZO SEGAL : [address]: Josiah Pack III, MD Acct: [id number] Unit: [id number] AGE: 87 Location: [facility] Re08/10/17 SEX: M Status: REG REF SPEC: [id number] ARELY: 08/10/17-[address] [facility] [address]: Josiah Pack III, MD REQ: [id number] RECD: 08/10/17-1306 STATUS: COMP _ SOURCE: URINE [facility]: ORDERED: Urine Culture COMMENTS: [id number] Urine Source: Random Procedure Result Reported Site Urine Culture Final 08/12/17- 1404 ML Organism 1 AEROCOCCUS URINAE [place] Count 25-50,000 (Moderate) CFU/ML Organism 2 NORMAL GAGE [place] Count 10-25,000 (Moderate) CFU/ML Aerococcus isolates are too fastidious for routine susceptibility studies. Aerococcus are usually susceptible to penicillin, amoxicillin, piperacillin, cefipime, rifampin and vancomycin. Moderate to good activity occurs with the quinolones, tetracyclines and erythromycin. ([employer] [place] and Textbook of Diagnostic Microbiology 6th Ed. 2006, p. 705-6.) * ML - Main Lab . END OF REPORT DEPARTMENT OF PATHOLOGY, [address] [place] [address] Ramiro Palomino M.D. Director [facility] # [id number] 15 [id number] Desirable: <150 Borderline High: 150-199 High: 200-499 Very High: >500 17 Desirable: <200 Borderline High: 200-239 High: >239 18 Low: <40 Desirable: 40-60 High: >60 19 Desirable: <100 Near Optimal: 100-129 Borderline High: 130-159 High: 160-189 Very High: >189 20 Because ethnic data is not always readily available, this report includes an eGFR for both -Americans and non- Americans. The National Kidney Disease Education Program (NKDEP) does not endorse the use of the MDRD equation for patients that are not between the ages of 18 and 70, are , have extremes of body size, muscle mass, or nutritional status, or are non- or non-. According to the National Kidney Foundation, irrespective of diagnosis, the stage of the disease is based on the level of kidney function: Stage Description GFR(mL/min/1.73 m(2)) 1 Kidney damage with normal or decreased GFR 90 2 Kidney damage with mild decrease in GFR 60-89 3 Moderate decrease in GFR 30-59 4 Severe decrease in GFR 15-29 5 Kidney failure <15 (or dialysis) 21 Director Business Intelligence: [id number] 22 Because ethnic data is not always readily available, this report includes an eGFR for both -Americans and non- Americans. The National Kidney Disease Education Program (NKDEP) does not endorse the use of the MDRD equation for patients that are not between the ages of 18 and 70, are , have extremes of body size, muscle mass, or nutritional status, or are non- or non-. According to the National Kidney Foundation, irrespective of diagnosis, the stage of the disease is based on the level of kidney function: Stage Description GFR(mL/min/1.73 m(2)) 1 Kidney damage with normal or decreased GFR 90 2 Kidney damage with mild decrease in GFR 60-89 3 Moderate decrease in GFR 30-59 4 Severe decrease in GFR 15-29 5 Kidney failure <15 (or dialysis) 23 Because ethnic data is not always readily available, this report includes an eGFR for both -Americans and non- Americans. The National Kidney Disease Education Program (NKDEP) does not endorse the use of the MDRD equation for patients that are not between the ages of 18 and 70, are , have extremes of body size, muscle mass, or nutritional status, or are non- or non-. According to the National Kidney Foundation, irrespective of diagnosis, the stage of the disease is based on the level of kidney function: Stage Description GFR(mL/min/1.73 m(2)) 1 Kidney damage with normal or decreased GFR 90 2 Kidney damage with mild decrease in GFR 60-89 3 Moderate decrease in GFR 30-59 4 Severe decrease in GFR 15-29 5 Kidney failure <15 (or dialysis) 24 [id number] 25 Desirable <150 Borderline high 150-199 High 200-499 Very High >500 26 Desirable <200 Borderline high 200-239 High >239 27 Low <40 Desirable: 40-60 High: >60 28 Desirable: <100 mg/dL Near Optimal: 100-129 mg/dL Borderline High: 130-159 mg/dL High: 160-189 mg/dL Very High: >189 mg/dL 29 Because ethnic data is not always readily available, this report includes an eGFR for both -Americans and non- Americans. The National Kidney Disease Education Program (NKDEP) does not endorse the use of the MDRD equation for patients that are not between the ages of 18 and 70, are , have extremes of body size, muscle mass, or nutritional status, or are non- or non-. According to the National Kidney Foundation, irrespective of diagnosis, the stage of the disease is based on the level of kidney function: Stage Description GFR(mL/min/1.73 m(2)) 1 Kidney damage with normal or decreased GFR 90 2 Kidney damage with mild decrease in GFR 60-89 3 Moderate decrease in GFR 30-59 4 Severe decrease in GFR 15-29 5 Kidney failure <15 (or dialysis) 30 [id number] 31 SEE RESULT BELOW Name: ZO SEGAL : [address]: Josiah Pack III, MD Acct: [id number] Unit: [id number] AGE: 86 Location: [facility] Re06/15/16 SEX: M Status: REG REF SPEC: [id number] ARELY: 06/15/16-[address] [facility] [address]: Josiah Pack III, MD REQ: [id number] RECD: 06/16/16 STATUS: COMP _ SOURCE: URINE SPDESC: ORDERED: Urine Culture COMMENTS: [id number] Procedure Result Reported Site Urine Culture Final 06/17/16- 1329 ML No Growth (<1,000 CFU/mL) * ML - MAIN LAB ([facility]) . END OF REPORT * ML=Testing performed at Main Lab DEPARTMENT OF PATHOLOGY, [address] [place] [address] Ramiro Palomino M.D. Director [facility] # [id number] 32 Acute inflammation: >10.00 33 Desirable <150 Borderline high 150-199 High 200-499 Very High >500 34 Desirable <200 Borderline high 200-239 High >239 35 Low <40 Desirable: 40-60 High: >60 36 Desirable: <100 mg/dL Near Optimal: 100-129 mg/dL Borderline High: 130-159 mg/dL High: 160-189 mg/dL Very High: >189 mg/dL 37 Because ethnic data is not always readily available, this report includes an eGFR for both -Americans and non- Americans. The National Kidney Disease Education Program (NKDEP) does not endorse the use of the MDRD equation for patients that are not between the ages of 18 and 70, are , have extremes of body size, muscle mass, or nutritional status, or are non- or non-. According to the National Kidney Foundation, irrespective of diagnosis, the stage of the disease is based on the level of kidney function: Stage Description GFR(mL/min/1.73 m(2)) 1 Kidney damage with normal or decreased GFR 90 2 Kidney damage with mild decrease in GFR 60-89 3 Moderate decrease in GFR 30-59 4 Severe decrease in GFR 15-29 5 Kidney failure <15 (or dialysis) 38 Serum levels of PSA measured using the [employer] DXI Hybritech immunoassay should not be interpreted as absolute evidence of the presence or absence of disease. The PSA value should be used in conjunction with other pertinent clinical diagnostic procedures. The values obtained with different assay methods or kits cannot be used interchangeably. 39 Desirable <150 Borderline high 150-199 High 200-499 Very High >500 40 Desirable <200 Borderline high 200-239 High >239 41 Low <40 Desirable: 40-60 High: >60 42 Desirable <100 Near Optimal 100-129 Borderline high 130-159 High 160-189 Very High >189 43 Because ethnic data is not always readily available, this report includes an eGFR for both -Americans and non- Americans. The National Kidney Disease Education Program (NKDEP) does not endorse the use of the MDRD equation for patients that are not between the ages of 18 and 70, are , have extremes of body size, muscle mass, or nutritional status, or are non- or non-. According to the National Kidney Foundation, irrespective of diagnosis, the stage of the disease is based on the level of kidney function: Stage Description GFR(mL/min/1.73 m(2)) 1 Kidney damage with normal or decreased GFR 90 2 Kidney damage with mild decrease in GFR 60-89 3 Moderate decrease in GFR 30-59 4 Severe decrease in GFR 15-29 5 Kidney failure <15 (or dialysis) 44 Serum levels of PSA measured using the Company DXI Hybritech immunoassay should not be interpreted as absolute evidence of the presence or absence of disease. The PSA value should be used in conjunction with other pertinent clinical diagnostic procedures. The values obtained with different assay methods or kits cannot be used interchangeably. 45 Because ethnic data is not always readily available, this report includes an eGFR for both -Americans and non- Americans. The National Kidney Disease Education Program (NKDEP) does not endorse the use of the MDRD equation for patients that are not between the ages of 18 and 70, are , have extremes of body size, muscle mass, or nutritional status, or are non- or non-. According to the National Kidney Foundation, irrespective of diagnosis, the stage of the disease is based on the level of kidney function: Stage Description GFR(mL/min/1.73 m(2)) 1 Kidney damage with normal or decreased GFR 90 2 Kidney damage with mild decrease in GFR 60-89 3 Moderate decrease in GFR 30-59 4 Severe decrease in GFR 15-29 5 Kidney failure <15 (or dialysis) 46 Because ethnic data is not always readily available, this report includes an eGFR for both -Americans and non- Americans. The National Kidney Disease Education Program (NKDEP) does not endorse the use of the MDRD equation for patients that are not between the ages of 18 and 70, are , have extremes of body size, muscle mass, or nutritional status, or are non- or non-. According to the National Kidney Foundation, irrespective of diagnosis, the stage of the disease is based on the level of kidney function: Stage Description GFR(mL/min/1.73 m(2)) 1 Kidney damage with normal or decreased GFR 90 2 Kidney damage with mild decrease in GFR 60-89 3 Moderate decrease in GFR 30-59 4 Severe decrease in GFR 15-29 5 Kidney failure <15 (or dialysis) 47 Because ethnic data is not always readily available, this report includes an eGFR for both -Americans and non- Americans. The National Kidney Disease Education Program (NKDEP) does not endorse the use of the MDRD equation for patients that are not between the ages of 18 and 70, are , have extremes of body size, muscle mass, or nutritional status, or are non- or non-. According to the National Kidney Foundation, irrespective of diagnosis, the stage of the disease is based on the level of kidney function: Stage Description GFR(mL/min/1.73 m(2)) 1 Kidney damage with normal or decreased GFR 90 2 Kidney damage with mild decrease in GFR 60-89 3 Moderate decrease in GFR 30-59 4 Severe decrease in GFR 15-29 5 Kidney failure <15 (or dialysis) 48 HDL Interpretation: Undesirable: High Risk: Less than 40 mg/dL Desirable: Low Risk: Greater than 60 mg/dL 49 LDL Interpretation: Low Risk Optimal Level: LDL Less than 100 mg/dL Near or Above Optimal: LDL 100-129 mg/dL Borderline High Risk: LDL 130-159 mg/dL High Risk: LDL 160-189 mg/dL Very High Risk: LDL Greater than 189 mg/dL 50 Serum levels of PSA measured using the An[employer]asia Tab[employer] DXI Hybritech immunoassay should not be interpreted as absolute evidence of the presence or absence of disease. The PSA value should be used in conjunction with other pertinent clinical diagnostic procedures. The values obtained with different assay methods or kits cannot be used interchangeably. 51 A metabolite of Naproxen, O-desmethylnaproxen, has been shown to interfere with the Jendrassik-Orin method for measuring total bilirubin. Samples from patients who have taken Naproxen have shown spurious elevation in total bilirubin levels. 52 Because ethnic data is not always readily available, this report includes an eGFR for both -Americans and non- Americans. The National Kidney Disease Education Program (NKDEP) does not endorse the use of the MDRD equation for patients that are not between the ages of 18 and 70, are , have extremes of body size, muscle mass, or nutritional status, or are non- or non-. According to the National Kidney Foundation, irrespective of diagnosis, the stage of the disease is based on the level of kidney function: Stage Description GFR(mL/min/1.73 m(2)) 1 Kidney damage with normal or decreased GFR 90 2 Kidney damage with mild decrease in GFR 60-89 3 Moderate decrease in GFR 30-59 4 Severe decrease in GFR 15-29 5 Kidney failure <15 (or dialysis) 53 Desirable: Less than 200 MG/DL Borderline-High Risk: 200-239 MG/DL High-Risk: 240 MG/DL and over 54 HDL Interpretation: Undesirable: High Risk: Less than 40 MG/DL Desirable: Low Risk: Greater than 60 MG/DL 55 * SERUM LEVELS OF PSA MEASURED USING THE ANASTASIA Fer[employer]ics ACCESS HYBRITECH IMMUNOASSAY SHOULD NOT BE INTERPRETED ABSOLUTE EVIDENCE OF THE PRESENCE OR ABSENCE OF DISEASE. THE PSA VALUE SHOULD BE USED IN CONJUNCTION WITH OTHER PERTINENT CLINICAL DIAGNOSTIC PROCEDURES. The values obtained with different assay methods or kits cannot be used interchangeably. 56 * SERUM LEVELS OF PSA MEASURED USING THE [employer]ASIA [employer] ACCESS HYBRITECH IMMUNOASSAY SHOULD NOT BE INTERPRETED ABSOLUTE EVIDENCE OF THE PRESENCE OR ABSENCE OF DISEASE. THE PSA VALUE SHOULD BE USED IN CONJUNCTION WITH OTHER PERTINENT CLINICAL DIAGNOSTIC PROCEDURES. 57 Anion gap measurement may be of limited value in the presence of any alkalosis, especially in a combined acid base disorder. . 58 A metabolite of Naproxen, O-desmethylnaproxen, has been shown to interfere with the Jendrassik-Bhupinder method for measuring total bilirubin. Samples from patients who have taken Naproxen have shown spurious elevation in total bilirubin levels. 59 Because ethnic data is not always readily available, this report includes an eGFR for both -Americans and non- Americans. The National Kidney Disease Education Program (NKDEP) does not endorse the use of the MDRD equation for patients that are not between the ages of 18 and 70, are , have extremes of body size, muscle mass, or nutritional status, or are non- or non-. According to the National Kidney Foundation, irrespective of diagnosis, the stage of the disease is based on the level of kidney function: Stage Description GFR(mL/min/1.73 m(2)) 1 Kidney damage with normal or decreased GFR 90 2 Kidney damage with mild decrease in GFR 60-89 3 Moderate decrease in GFR 30-59 4 Severe decrease in GFR 15-29 5 Kidney failure <15 (or dialysis) 60 CHOLESTEROL INTERPRETATION: Desirable: Less than 200 MG/DL Borderline-High Risk: 200-239 MG/DL High-Risk: 240 MG/DL and over 61 HDL INTERPRETATION: Undesirable: High Risk: Less than 40 MG/DL Desirable: Low Risk: Greater than 60 MG/DL 62 LDL INTERPRETATION: Low Risk Optimal Level: LDL Less than 100 MG/DL Near or Above Optimal: LDL 100-129 MG/DL Borderline High Risk: LDL 130-159 MG/DL High Risk: LDL 160-189 MG/DL Very High Risk: LDL Greater than 189 MG/DL 63 * SERUM LEVELS OF PSA MEASURED USING THE ANASTASIA Ferfics ACCESS HYBRITECH IMMUNOASSAY SHOULD NOT BE INTERPRETED ABSOLUTE EVIDENCE OF THE PRESENCE OR ABSENCE OF DISEASE. THE PSA VALUE SHOULD BE USED IN CONJUNCTION WITH OTHER PERTINENT CLINICAL DIAGNOSTIC PROCEDURES. 64 ANY BLOOD NOT GIVEN WILL BE RELEASED AT 0700 ON THE ABOVE DATE UNLESS DOCTOR NOTIFIES LAB OTHERWISE. 65 [id number] ON PC TRANSFUSED 01/22/10 0944 66 [id number] ON PC TRANSFUSED 01/22/10 1224 67 Anion gap measurement may be of limited value in the presence of any alkalosis, especially in a combined acid base disorder. . 68 Note change in reference range as of 11/15/07. The change was based on recommendations from the [place] [employer]. 69 Please note change in reference range effective 07 . 70 A metabolite of Naproxen, O-desmethylnaproxen, has been shown to interfere with the Jendrassik-Bhupinder method for measuring total bilirubin. Samples from patients who have taken Naproxen have shown spurious elevation in total bilirubin levels. 71 Because ethnic data is not always readily available, this report includes an eGFR for both -Americans and non- Americans. The National Kidney Disease Education Program (NKDEP) does not endorse the use of the MDRD equation for patients that are not between the ages of 18 and 70, are , have extremes of body size, muscle mass, or nutritional status, or are non- or non-. According to the National Kidney Foundation, irrespective of diagnosis, the stage of the disease is based on the level of kidney function: Stage Description GFR(mL/min/1.73 m(2)) 1 Kidney damage with normal or decreased GFR 90 2 Kidney damage with mild decrease in GFR 60-89 3 Moderate decrease in GFR 30-59 4 Severe decrease in GFR 15-29 5 Kidney failure <15 (or dialysis) 72 Lymphopenia % 73 CHOLESTEROL INTERPRETATION: Desirable: Less than 200 MG/DL Borderline-High Risk: 200-239 MG/DL High-Risk: 240 MG/DL and over 74 HDL INTERPRETATION: Undesirable: High Risk: Less than 40 MG/DL Desirable: Low Risk: Greater than 60 MG/DL 75 LDL INTERPRETATION: Low Risk Optimal Level: LDL Less than 100 MG/DL Near or Above Optimal: LDL 100-129 MG/DL Borderline High Risk: LDL 130-159 MG/DL High Risk: LDL 160-189 MG/DL Very High Risk: LDL Greater than 189 MG/DL 76 * SERUM LEVELS OF PSA MEASURED USING THE A[employer]STASIA Ferfics ACCESS HYBRITECH IMMUNOASSAY SHOULD NOT BE INTERPRETED ABSOLUTE EVIDENCE OF THE PRESENCE OR ABSENCE OF DISEASE. THE PSA VALUE SHOULD BE USED IN CONJUNCTION WITH OTHER PERTINENT CLINICAL DIAGNOSTIC PROCEDURES. A PSA value in the range of 0.1 to 0.6 ng/ml is indeterminate if being used as an indicator of recurrent or residual disease. . 77 FASTING 78 CHOLESTEROL INTERPRETATION: Desirable: Less than 200 MG/DL Borderline-High Risk: 200-239 MG/DL High-Risk: 240 MG/DL and over 79 HDL INTERPRETATION: Undesirable: High Risk: Less than 40 MG/DL Desirable: Low Risk: Greater than 60 MG/DL 80 LDL INTERPRETATION: Low Risk Optimal Level: LDL Less than 100 MG/DL Near or Above Optimal: LDL 100-129 MG/DL Borderline High Risk: LDL 130-159 MG/DL High Risk: LDL 160-189 MG/DL Very High Risk: LDL Greater than 189 MG/DL 81 Anion gap measurement may be of limited value in the presence of any alkalosis, especially in a combined acid base disorder. . 82 Note change in reference range as of 11/15/07. The change was based on recommendations from the [place] [employer]. 83 Please note change in reference range effective 07 . 84 A metabolite of Naproxen, O-desmethylnaproxen, has been shown to interfere with the Jendrassik-Bhupinder method for measuring total bilirubin. Samples from patients who have taken Naproxen have shown spurious elevation in total bilirubin levels. 85 Because ethnic data is not always readily available, this report includes an eGFR for both -Americans and non- Americans. The National Kidney Disease Education Program (NKDEP) does not endorse the use of the MDRD equation for patients that are not between the ages of 18 and 70, are , have extremes of body size, muscle mass, or nutritional status, or are non- or non-. According to the National Kidney Foundation, irrespective of diagnosis, the stage of the disease is based on the level of kidney function: Stage Description GFR(mL/min/1.73 m(2)) 1 Kidney damage with normal or decreased GFR 90 2 Kidney damage with mild decrease in GFR 60-89 3 Moderate decrease in GFR 30-59 4 Severe decrease in GFR 15-29 5 Kidney failure <15 (or dialysis) 86 Lymphopenia % 87 * SERUM LEVELS OF PSA MEASURED USING THE A[employer]STASIA Ferfics ACCESS HYBRITECH IMMUNOASSAY SHOULD NOT BE INTERPRETED ABSOLUTE EVIDENCE OF THE PRESENCE OR ABSENCE OF DISEASE. THE PSA VALUE SHOULD BE USED IN CONJUNCTION WITH OTHER PERTINENT CLINICAL DIAGNOSTIC PROCEDURES. A PSA value in the range of 0.1 to 0.6 ng/ml is indeterminate if being used as an indicator of recurrent or residual disease. . 88 * SERUM LEVELS OF PSA MEASURED USING THE ANASTASIA MIKE ACCESS HYBRITECH IMMUNOASSAY SHOULD NOT BE INTERPRETED ABSOLUTE EVIDENCE OF THE PRESENCE OR ABSENCE OF DISEASE. THE PSA VALUE SHOULD BE USED IN CONJUNCTION WITH OTHER PERTINENT CLINICAL DIAGNOSTIC PROCEDURES. A PSA value in the range of 0.1 to 0.6 ng/ml is indeterminate if being used as an indicator of recurrent or residual disease. . 89 PATIENT MAY HAVE RESULTS PER DOCTOR'S AUTHORIZATION. Questions regarding this report should be directed to your doctor. 90 Anion gap measurement may be of limited value in the presence of any alkalosis, especially in a combined acid base disorder. . 91 Please note change in reference range effective 07 . 92 CHOLESTEROL INTERPRETATION: Desirable: Less than 200 MG/DL Borderline-High Risk: 200-239 MG/DL High-Risk: 240 MG/DL and over 93 HDL INTERPRETATION: Undesirable: High Risk: Less than 40 MG/DL Desirable: Low Risk: Greater than 60 MG/DL 94 LDL INTERPRETATION: Low Risk Optimal Level: LDL Less than 100 MG/DL Near or Above Optimal: LDL 100-129 MG/DL Borderline High Risk: LDL 130-159 MG/DL High Risk: LDL 160-189 MG/DL Very High Risk: LDL Greater than 189 MG/DL 95 * SERUM LEVELS OF PSA MEASURED USING THE [employer] ACCESS HYBRITECH IMMUNOASSAY SHOULD NOT BE INTERPRETED ABSOLUTE EVIDENCE OF THE PRESENCE OR ABSENCE OF DISEASE. THE PSA VALUE SHOULD BE USED IN CONJUNCTION WITH OTHER PERTINENT CLINICAL DIAGNOSTIC PROCEDURES. A PSA value in the range of 0.1 to 0.6 ng/ml is indeterminate if being used as an indicator of recurrent or residual disease. . Procedures Date Code Description Status 04/11/2013 93204 ECHO Transthoracic, Real-Time 2D With Doppler And Color Completed Flow 04/11/2013 54235 EKG Tracing & Interpretation Completed 11/27/2012 23797 Color Flow Doppler/Interp & Reprt Completed 11/27/2012 34797 Pulse Wave/Continuous-Interp.RPT Completed 11/27/2012 96231 ECHO Transthorasic Realtime 2D W Doppler & Color Flow Completed Hosp 01/04/2012 49857 ECHO Transthoracic, Real-Time 2D With Doppler And Color Completed Flow 02/03/2010 92376 Rad Exam; Knee, Ap&L Completed 01/19/2010 95116 TKR Total Knee Replacement Completed 01/19/2010 72488 TKR Total Knee Replacement Completed 12/29/2009 98549 EKG Tracing & Interpretation Completed 11/18/2009 49104 Xray Knee 3 Views Completed 11/18/2009 87416 Rad Exam; Knee, Ap&L Completed 04/21/2009 00562 ECHO Transthoracic, Real-Time 2D With Doppler And Color Completed Flow 10/15/2008 13052 EKG Tracing & Interpretation Completed 10/23/2007 49923 Color Doppler Completed 10/23/2007 77984 Color Doppler Completed 10/23/2007 96866 Pulse Doppler & Continuous Wave Completed 10/23/2007 64216 Pulse Doppler & Continuous Wave Completed 10/23/2007 64091 Pulse Doppler & Continuous Wave Completed 10/23/2007 65728 Echocardiogram Completed 10/23/2007 02221 Echocardiogram Completed 09/13/2006 03105 Color Doppler Completed 09/13/2006 81492 Color Doppler Completed 09/13/2006 76202 Pulse Doppler & Continuous Wave Completed 09/13/2006 81880 Echocardiogram Completed 09/13/2006 48505 Echocardiogram Completed 07/05/2006 [id number] Colonoscopy Completed Encounters Type Date Location Provider Dx Diagnosis Office Visit 2017 [facility] Josiah Chi R60.0 Localized edema 2:00p Enedina Pack M.D. [facility] Office Visit 04/04/2017 Elisabeth Chi R09.02 Hypoxemia 10:20a Enedina Pack M.D. [facility] Office Visit 02/03/2017 Elisabeth Chi I10 Essential (primary) 10:40a Enedina Pack M.D. hypertension [facility] E78.00 Pure hypercholesterolemia, unspecified F03.90 Unspecified dementia without behavioral disturbance R09.02 Hypoxemia Office Visit 08/27/2015 2:20p Elisabeth Chi M79.672 Pain in left foot Enedina Pack M.D. [place] Office Visit 08/07/2015 11:40a Elisabeth Chi M54.2 Cervicalgia Enedina Pack M.D. 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 [facility] [place] 401.1 Hypertension Benign Office Visit 07/05/2013 10:00a Elisabeth Chi V70.0 Examination Enedina Pack M.D. 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 424.1 Aortic Valve Disorder V04.81 Need For Prophylactic Vaccination & Inoculation/Influenza Office Visit 02/06/2012 9:40a [facility] Internal Josiah Chi 401.1 Hypertension [facility] Thomas Sierra 424.1 Aortic Valve Disorder Office Visit 01/04/2012 9:00a [facility] Internal Josiah Chi 401.1 Hypertension [facility] Thomas Sierra 272.0 Hypercholesterolemia Pure 424.1 Aortic Valve Disorder 715.96 Osteoarthrosis Unspec Genlzd Or Localized Lower Leg V10.46 History Personal Malignant Neoplasm Prostate V10.83 History Personal Malignant Neoplasm Of The Skin Other Office Visit 07/01/2011 1:00p [facility] Cherelle Chi 401.1 Hypertension Thomas Cruz 272.0 Hypercholesterolemia Pure 424.1 Aortic Valve Disorder 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 Localized Lower Leg Office Visit 04/28/2010 Orthopedic Jeremi Magallanes 715.96 Osteoarthrosis 1:45p Services Of Thomas Unspec Genlzd Or C.M.A. Localized Lower Leg Office Visit 04/23/2010 DO Not Use Fire Dispatcher Josiah E. 401.1 Hypertension Benign 11:00a AT Jose Pack M.D. 272.0 Hypercholesterolemia Pure 424.1 Aortic Valve Disorder Office Visit 12/29/2009 10:00a DO Not Use Fire Dispatcher Josiah E. V72.83 Examination AT Jose Pack M.D. Preoperative Other Spec V72.81 Examination Preoperative Cardiovascular 719.46 Pain Joint Lower Leg 401.1 Hypertension Benign 272.0 Hypercholesterolemia Pure 424.1 Aortic Valve Disorder V10.46 History Personal Malignant Neoplasm Prostate V04.81 Need For Prophylactic Vaccination & Inoculation/Influenza Office Visit 11/18/2009 2:45p Orthopedic Dirk Elpidio, 715.96 Osteoarthrosis Services Of Thomas Unspec Genlzd Or C.M.A. Localized Lower Leg Office Visit 10/21/2009 9:00a DO Not Use Fire Dispatcher Josiah E. 401.1 Hypertension Benign AT Jose Pack M.D. 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 401.1 Hypertension Benign AT Jose Pack M.D. 272.0 Hypercholesterolemia Pure 424.1 Aortic Valve Disorder Office Visit 10/15/2008 9:30a Radha Rahman EEduardo 785.2 Murmur [facility] AT Thomas Pack Undiagnosed [facility] 272.0 Hypercholesterolemia Pure 401.1 Hypertension Benign Office Visit 04/03/2008 11:00a Radha Rahman EEduardo 785.2 [facility] AT Thomas Pack Undiagnosed [facility] 272.0 Hypercholesterolemia Pure 401.1 Hypertension Benign V06.5 Tetanus Diphtheria (DT) Office Visit 10/02/2007 Radha Rahman EEduardo 272.0 Hypercholesterolemia Pure 11:15a Assoc AT Thomas Pack [facility] 401.1 Hypertension Benign Office Visit 04/03/2007 Radha Chi 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 at [facility] Internal Medicine [facility]02/27/2018 - Josiah Pack M.D.R55 Syncope and collapseNew Orders:Overnight Oximetry, Ordered: 02/27/18Holter Monitor, Ordered : 02/27/18I10 Essential (primary) hypertensionFollow up:wellness exam in 6 months or prnE78.00 Pure hypercholesterolemia, [id number] Dyspnea, unspecified
--- OUTSIDE RECORDS SUMMARY | 2018-03-24 18:57 | XMS REPORT | Continuity of Care Document ---
:1930 External Reference #:[id number] Author Name Belgica Ruiz Care Team Providers Name Role Phone Josiah Pack III, MD Primary Care Physician Unavailable Payers Type Date Identification Numbers Payment Provider Subscriber Policy Number: [id number] [facility] Ppo/Epo Zo Segal PayID: [id number] [address] [place] [address] Policy Number: [id number] Medicare Zo Saundersn PayID: [id number] [address] [facility] 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, [facility]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 02/02 Fish Oil [...] Hx Tablets 5mg 180ta 1 po bid Ojsiah E. /0000 bs Valeria Pack MCarlos 07/12 [...] Form Strength Qnty SIG Indications Ordering Provider [facility] Administered Injection Josiah Pack M.D. Immunizations CPT Code Status Date Vaccine Lot # 45912 Given 12/20/2016 Influenza Virus Vaccine, Quadrivalent, Split, Preservative Free 24050 Given 01/14/2015 Influenza Virus Vaccine, Quadrivalent, Split, Preservative Free 97379 Given 07/08/2014 Pneumococcal Conjugate Vaccine 13 Valent For [id number] Intramuscular Use Q2039 Given 01/01/2014 Flu Vaccine NOS 21397 Given 01/03/2013 Flu Vaccine Split Virus Preservative Free For [id number] Indiv 3Yr Older Q2038 Given 12/29/2010 Fluzone Vaccine 48169 Given 12/29/2009 Influenza Virus 3Yrs & Over [id number] 82021 Given 03/13/2009 Influenza Virus Vaccine, Pandemic Formulation 56765 Given 04/03/2008 Tetanus And Diptheria (Td) For Adult Use Preservative Free 25913 Given 02/01/2008 Influenza Virus 3Yrs & Over 01462 Given 12/28/2006 Influenza Virus 3Yrs & Over 36255 84765 Given 12/27/2006 Influenza Virus 3Yrs & Over 64445 Given 07/15/1997 Pneumonia Vaccine 40588 Given 07/14/1997 Pneumovax (History By Patient) Vital [...] Result H/L Range Note Laboratory test 02/25/2018 [facility] Ammonia 40 mcmol/L N 16- [address] [place] [address] [phone] B-Type Natriuretic Peptide BNP 155 pg/mL High <=100 Laboratory test 02/25/2018 [facility] Magnesium 1.9 mg/dL N 1.9-2.[address] [place] [address] [phone] C Reactive Protein 4.89 mg/L N <8.01 Troponin-I (TnI) 0.01 ng/mL <0.04 1 TSH (Thyroid Stim Horm) 1.67 mcIU/mL N 0.34-5.60 Inr/Protime 02/25/2018 [facility] Inr 0.96 N 0.77-1.[address] [place] [address] [phone] CBC Auto Diff 02/25/2018 [facility] White Blood 10.4 N 3.5- 10.8 DRIVE Count 10^3/[place] [address] [phone] Red Blood Count 4.06 10^6/uL N 4.00-5.40 [...] Cells % 0.1 Comp Metabolic Panel 02/25/2018 [facility] Sodium 138 mmol/L N 135-[address] [place] [address] [phone] Potassium 4.3 mmol/L N 3.5-5.0 Chloride 108 [...] Egfr 65.2 >60 2 Laboratory test 02/25/2018 [facility] Lactic Acid 0.9 mmol/L N 0.5-2.0 [address] [place] [address] [phone] Urine Culture And 11/16/2017 [facility] Urine SEE RESULT 4 , [address] [place] [place] [address] [phone] Urinalysis Profile 11/16/2017 [facility] Urine Color Straw [address] [place] [address] [phone] Urine Appearance Clear Urine Specific [place] 1.010 N 1.010-1.030 Urine pH 6.0 N [...] Cell Present Abnormal Absent Laboratory test 10/11/2017 [facility] B-Type 96 pg/mL [address] [place] [address] Peptide BNP [phone] CBC Auto Diff 10/11/2017 [facility] White Blood Count 7.1 10^3/ uL N 3.5-[address] [place] [address] [phone] Red Blood Count 4.43 10^6/uL N 4.00-5.40 [...] Cells % 0 Comp Metabolic Panel 10/11/2017 [facility] Sodium 137 mmol/L N 135-[address] [place] [address] [phone] Potassium 4.1 mmol/L N 3.5-5.0 Chloride 103 [...] Egfr 71.7 >60 7 Laboratory test 10/11/2017 [facility] Acetaminophen < 15 g/mL [address] [place] [address] [phone] Alcohol < 10 mg/dL N <10 Salicylate < 2.50 mg/dL <30 TSH (Thyroid Stim Horm) 1.06 mcIU/mL N 0.34-5.60 Urine Drug 10/11/2017 [facility] Amphetamine Ur None Detected None Detect SCR ED & [address] [address] [phone] Barbiturates Urine Screen None Detected None Detect Benzodiazepine Urine Screen None Detected None Detect Urine Cannabinoids Screen None Detected None Detect Urine Cocaine Screen None Detected None Detect Urine Opiates Screen None Detected None Detect Urine Phencyclidine Screen None Detected None Detect 9 Urinalysis Profile 10/11/2017 [facility] Urine Color Yellow [address] [place] [address] [phone] Urine Appearance Clear Urine Specific [place] 1.016 N 1.010-1.030 Urine pH 6.0 N 5-9 Urine Urobilinogen Negative Negative Urine Ketones Negative Negative Urine Protein Negative Negative Urine Leukocytes Negative Negative Urine Blood Negative Negative * * Abnormal Negative 10 Urine Nitrite Negative Negative Urine Bilirubin Negative Negative Urine Glucose Negative Negative Urine Culture And 08/30/2017 [facility] Urine Culture SEE RESULT 11, [address] [place] [address] [phone] Urinalysis Profile 08/10/2017 [facility] Urine Color Yellow [address] [place] [address] [phone] Urine Appearance Clear Urine Specific [place] 1.019 N 1.010-1.030 Urine pH 6.0 N 5-9 Urine Urobilinogen Negative Negative Urine Ketones Negative Negative Urine Protein Negative Negative Urine Leukocytes Negative Negative Urine Blood Negative Negative Urine Nitrite Negative Negative Urine Bilirubin Negative Negative Urine Glucose Negative Negative Urine Culture And 08/10/2017 [facility] Urine Culture SEE RESULT [address] [place] [address] [phone] Lipid Profile 08/01/2017 [facility] Triglycerides 110 mg/dL 15, 16 (Trig/Chol/HDL) [address] [place] [address] [phone] Cholesterol 158 mg/dL 17 HDL Cholesterol 47.1 mg/dL 18 LDL Cholesterol 89 mg/dL 19 Comp Metabolic Panel 08/01/2017 [facility] Sodium 139 mmol/L N 139-[address] [place] [address] [phone] Potassium 4.4 mmol/L N 3.5-5.0 Chloride 103 [...] Egfr 71.3 >60 20 Rapid Influenza 03/16/2017 [facility] Influenza A NEGATIVE Negative 21 A & B Molecular [address] [place] [address] [phone] Influenza B Molecular NEGATIVE Negative Basic Metabolic 02/03/2017 [facility] Sodium 131 mmol/L Low 133-145 Panel [address] [place] [address] [phone] Potassium 4.1 mmol/L N 3.5-5.0 Chloride 95 mmol/L Low 101-111 Co2 Carbon Dioxide 31 mmol/L N 22-32 Anion Gap 5 mmol/L N 2-11 Glucose 92 mg/dL N 70-100 Blood Urea Nitrogen 24 mg/dL N 6-24 Creatinine 1.24 mg/dL High 0.67-1.17 BUN/Creatinine Ratio 19.4 N 8-20 Calcium 9.7 mg/dL N 8.6-10.3 Egfr Non- 55.5 >60 Egfr 71.4 >60 22 Basic Metabolic 08/03/2016 [facility] Sodium 128 mmol/L Low 133-145 Panel [address] [place] [address] [phone] Potassium 4.5 mmol/L N 3.5-5.0 Chloride 94 mmol/L Low 101-111 Co2 Carbon Dioxide 29 mmol/L N 22-32 Anion Gap 5 mmol/L N 2-11 Glucose 102 mg/dL High 70-100 Blood Urea Nitrogen 23 mg/dL N 6-24 Creatinine 1.02 mg/dL N 0.67-1.17 BUN/Creatinine Ratio 22.5 High 8-20 Calcium 9.3 mg/dL N 8.6-10.3 Egfr Non- 69.6 N >60 Egfr 89.5 N >60 23 Lipid Profile 07/12/2016 [facility] Triglycerides 115 mg/dL N 24, 25 (Trig/Chol/HDL) [address] [place] [address] [phone] Cholesterol 142 mg/dL N 26 HDL Cholesterol 44.2 mg/dL N 27 LDL Cholesterol 75 mg/dL N 28 Comp Metabolic Panel 07/12/2016 [facility] Sodium 128 mmol/L Low 133-[address] [place] [address] [phone] Potassium 3.8 mmol/L N 3.5-5.0 Chloride 96 [...] 84.7 N >60 29 Urinalysis Profile 06/15/2016 [facility] Urine Color Yellow N [address] [place] [address] [phone] Urine Appearance Clear N Urine Specific [place] 1.017 N 1.010-1.030 Urine pH 5.0 N 5-9 Urine Urobilinogen Negative N Negative Urine Ketones Negative N Negative Urine Protein Negative N Negative Urine Leukocytes Negative N Negative Urine Blood Negative N Negative Urine Nitrite Negative N Negative Urine Bilirubin Negative N Negative Urine Glucose Negative N Negative Urine Culture And 06/15/2016 [facility] Urine Culture SEE RESULT [address] [place] [address] [phone] Laboratory test 08/27/2015 [facility] Erythrocyte Sed 35 mm/Hr N 0-[address] [place] [address] [phone] C Reactive Protein 13.76 mg/L High < 5.00 32 Uric Acid 8.3 mg/dL High 4.4-7.6 Lipid Profile 07/21/2015 [facility] Triglycerides 99 mg/dL N 33 (Trig/Chol/HDL) [address] [place] [address] [phone] Cholesterol 150 mg/dL N 34 HDL Cholesterol 50.1 mg/dL N 35 LDL Cholesterol 80 mg/dL N 36 Comp Metabolic Panel 07/21/2015 [facility] Sodium 137 mmol/L N 133-[address] [place] [address] [phone] Potassium 4.0 mmol/L N 3.5-5.0 Chloride 103 [...] 66.0 N >60 37 Laboratory test 07/21/2015 [facility] PSA Screening 4.854 High 0-4.000 [address] ng/[place] [address] [phone] Lipid Profile 04/08/2014 [facility] Triglycerides 133 mg/dL N 39 (Trig/Chol/HDL) [address] [place] [address] [phone] Cholesterol 170 mg/dL N 40 HDL Cholesterol 51.4 mg/dL N 41 LDL Cholesterol 92 mg/dL N 42 Comp Metabolic Panel 04/08/2014 [facility] Sodium 134 mmol/L N 133-[address] [place] [address] [phone] Potassium 4.3 mmol/L N 3.5-5.0 Chloride 103 [...] 74.0 N >60 43 Laboratory test 04/08/2014 [facility] PSA Diagnostic 3.484 N 0 -4.000 [address] ng/[place] [address] [phone] Creatinine 08/06/2013 [facility] Creatinine 1.14 mg/dL N 0.67- 1.[address] [place] [address] [phone] Egfr Non- 61.7 N >60 Egfr 79.3 N >60 45 CBC No Diff 04/25/2013 [facility] White Blood 6.3 10^3/uL 4.8 -10.[address] [place] [address] [phone] Red Blood Count 4.52 10^6/uL 4.0-5.4 Hemoglobin 13.6 g/dL Low 14.0-18.0 Hematocrit 42 % 42-52 Mean Corpuscular Volume 92 fL 80-94 Mean Corpuscular Hemoglobin 30 pg 27-31 Mean Corpuscular HGB Conc 33 g/dL 31-36 Red Cell Distribution Width 13 % 10.5-15 Platelet Count 231 10^3/uL 150-450 Mean Platelet Volume 9 um3 7.4-10.4 Inr/Protime 04/25/2013 [facility] Inr 0.89 0.85-1.[address] [place] [address] [phone] Basic Metabolic 04/25/2013 [facility] Sodium 138 mmol/L 133- [address] [place] [address] [phone] Potassium 4.1 mmol/L 3.5-5.0 Chloride 101 mmol/L 101-111 Co2 Carbon Dioxide 30.0 mmol/L 22-32 Anion Gap 7.0 mmol/L 2-11 Glucose 82 mg/dL 70-100 Blood Urea Nitrogen 19 mg/dL 6-24 Creatinine 1.00 mg/dL 0.50-1.40 BUN/Creatinine Ratio 19.0 8-20 Calcium 9.9 mg/dL 8.1-9.9 Egfr Non- 71.9 >60 Egfr 92.5 >60 46 CBC Auto Diff 11/27/2012 [facility] White Blood 5.2 10^3/uL 4.8-10.[address] [place] [address] [phone] Red Blood Count 4.29 10^6/uL 4.0-5.4 Hemoglobin [...] Cells % 0.1 Comp Metabolic Panel 11/27/2012 [facility] Sodium 138 mmol/L 133-[address] [place] [address] [phone] Potassium 3.9 mmol/L 3.5-5.0 Chloride 102 mmol/L [...] Egfr 104.4 >60 47 Lipid Profile 11/27/2012 [facility] Triglycerides 77 mg/dL 40 -200 (Trig/Chol/HDL) [address] [place] [address] [phone] Cholesterol 147 mg/dL Less than 200 HDL Cholesterol 61 mg/dL High 40-60 48 Cholesterol/HDL Ratio 2.4 Average 1-4.44 LDL Cholesterol 70.6 Less Than 100 49 Laboratory test 05/21/2012 [facility] PSA Diagnostic 1.83 ng/mL 0-4.0 [address] [place] [address] [phone] CBC Auto Diff 01/06/2012 [facility] White Blood 5.6 4.8-10.[address] Count 10^3/[place] [address] [phone] Red Blood Count 4.30 10^6/uL 4.0-5.4 Hemoglobin [...] Cells % 0.1 Comp Metabolic Panel 01/06/2012 [facility] Sodium 138 mmol/L 133-145 [address] [place] [address] [phone] Potassium 4.0 mmol/L 3.5-5.0 Chloride 101 mmol/L [...] Egfr 92.7 >60 52 Lipid Profile 01/06/2012 [facility] Triglycerides 63 mg/dL 40 -200 (Trig/Chol/HDL) [address] [place], [place] [address] [phone] Cholesterol 160 mg/dL Less than 200 53 HDL Cholesterol 72 mg/dL High 40-60 54 Cholesterol/HDL Ratio 2.2 AVERAGE 1-4.44 LDL Cholesterol 75.4 mg/dL Less Than 100 Laboratory test 06/02/2011 [facility] PSA,Diagnostic 1.38 NG/ML 0-4 [address] [place] [address] [phone] Laboratory test 12/01/2010 [facility] PSA,Diagnostic 1.16 NG/ML 0-4 [address] [place] [address] [phone] DR [facility] 11/02/2010 TSH 0.94 0.34-5.6 [...] Abs Basophils 0 0-0.2 Laboratory test 06/15/2010 [facility] PSA,Diagnostic 0.83 NG/ML 0-4 63 [address] [place], [place] [address] [phone] Laboratory test 01/22/2010 [facility] Release Date 01/25/10 64 finding [address] [place] [address] [phone] RBC Leukoreduced 01/22/2010 [facility] RBC Leukoreduced [id number] [address] [facility] O <[place] [address] NOTE> [phone] RBC Leukoreduced [id number] O <SEE NOTE> 66 Patient Blood Type O POSITIVE Antibody Screen NEGATIVE Comp Metabolic Panel 10/21/2009 [facility] Sodium 139 mmol/L 135-145 [address] [place] [address] [phone] Potassium 3.8 mmol/L 3.5-5.0 Chloride 102 mmol/L [...] > [address] [facility] 10/21/2009 [facility] TSH 0.92 MIU/ML 0.34- 5.[address] [place] [address] [phone] CBC With 10/21/2009 [facility] White Blood 6.1 CUMM 4.8-10.8 Electronic Diff [address] [place] [address] [phone] Red Cell Count 4.51 CUMM Low 4.6-6.2 [...] Basophils 0 0-0.2 72 Lipid Profile 10/21/2009 [facility] Triglyceride 121 mg/dL 40 -200 (Trig/Chol/HDL) [address] [place] [address] [phone] Cholesterol 163 mg/dL Less Than 200 73 High Density Lipoprotein 52 mg/dL 40-60 74 Cholesterol/HDL Ratio 3.13 AVERAGE 1-4.97 Low Density Lipoprotein 87 mg/dL Less Than 100 75 Laboratory test 06/15/2009 [facility] PSA,Diagnostic 0.57 NG/ML 0-4 [address] [place] [address] [phone] Lipid Profile 10/06/2008 [facility] Triglyceride 73 mg/dL 40- 200 77 (Trig/Chol/HDL) [address] [place] [address] [phone] Cholesterol 153 mg/dL Less Than 200 78 High Density Lipoprotein 52 mg/dL 40-60 79 Cholesterol/HDL Ratio 2.94 AVERAGE 1-4.97 Low Density Lipoprotein 86 mg/dL Less Than 100 80 Comp Metabolic Panel 10/06/2008 [facility] Sodium 138 mmol/L 135-[address] [place] [address] [phone] Potassium 4.0 mmol/L 3.5-5.0 Chloride 106 mmol/L [...] 93.4 > 60 85 CBC With 10/06/2008 [facility] White Blood 6.4 CUMM 4.8-10.8 Electronic Diff [address] [place] [address] [phone] Red Cell Count 4.12 CUMM Low 4.6-6.2 [...] Basophils 0 0-0.2 86 Laboratory test 10/06/2008 [facility] TSH 0.61 MIU/ML 0.34- 5.60 finding [address] [place] [address] [phone] Laboratory test 06/10/2008 [facility] PSA,Diagnost 0.40 NG/ML 0-4 87 finding [address] [place] [address] [phone] Laboratory test 11/27/2007 [facility] PSA,Diagnost 0.35 NG/ML 0-4 88 finding [address] [place] [address] [phone] Comp Metabolic 10/02/2007 [facility] Sodium 141 mmol/L 135- 145 89 Panel [address] [place] [address] [phone] Potassium 3.7 mmol/L 3.5-5.0 Chloride 107 mmol/L [...] (Sgot) 32 U/L 12-42 Lipid Profile 10/02/2007 [facility] Triglyceride 88 mg/dL 40- 200 (Trig/Chol/HDL) [address] [place] [address] [phone] Cholesterol 186 mg/dL Less Than 200 92 High Density Lipoprotein 52 mg/dL 40-60 93 Cholesterol/HDL Ratio 3.58 AVERAGE 1-4.97 Low Density Lipoprotein 116 mg/dL High Less Than 100 94 Laboratory test 10/02/2007 [facility] TSH 0.44 MIU/ML 0.34- 5.[address] [place] [address] [phone] CBC With 10/02/2007 [facility] White Blood 4.9 CUMM 4.8-10.8 Electronic Diff [address] [place] [address] [phone] Red Cell Count 4.32 CUMM Low 4.6-6.2 [...] Abs Basophils 0 0-0.2 Laboratory test 05/28/2007 [facility] PSA Screening 0.24 NG/ML 0-4 [address] [place] [address] [phone] 1 Troponin-I testing on Plasma Separator Tubes [...] 5 Kidney failure <15 (or dialysis) 3 [facility] Severe Sepsis and Septic Shock Management Bundle Measure requires all lactic acids initially measuring >2.0 mmol/L be repeated. 4 [id number] 5 SEE RESULT BELOW Name: ZO SEGAL : [address]: Josiah Pack III, MD Acct: [id number] Unit: [id number] AGE: 87 Location: [facility] Re11/16/17 SEX: M Status: REG REF SPEC: [id number] ARELY: 11/16/[address] [facility] [address]: Josiah Pack III, MD REQ: [id number] RECD: 11/16/17 STATUS: NIKOLAI HOWARD DR: Iliana _ SOURCE: URINE SPDESC: ORDERED: Urine Culture COMMENTS: [id number] QUERIES: Urine Source: Random Procedure Result Reported Site Urine Culture Final 11/20/17- 1414 ML Organism 1 PROTEUS MIRABILIS [place] Count 10-25,000 (Moderate) CFU/ML 1. PROTEUS MIRABILIS [...] . END OF REPORT DEPARTMENT OF PATHOLOGY, [address] [place] [address] Ramiro Palomino M.D. Director [facility] # [id number] 6 >100 to <200 pg/mL: likely compensated [...] may interfere with detection of blood. 11 [id number] 12 SEE RESULT BELOW Name: ZO SEGAL : [address]: Josiah Pack III, MD Acct: [id number] Unit: [id number] AGE: 87 Location: [facility] Re08/30/17 SEX: M Status: REG REF SPEC: [id number] ARELY: 08/30/17-[address]: Josiah Pack III, MD REQ: [id number] RECD: 08/30/17-121 STATUS: COMP _ SOURCE: URINE SPDESC: ORDERED: Urine Culture COMMENTS: [id number] Procedure Result Reported Site Urine Culture Final 09/01/17- 0945 ML Organism 1 AEROCOCCUS URINAE [place] Count 75-100,000 (Many) CFU/ML Organism 2 NORMAL GAGE [place] Count 1-10,000 (Few) CFU/ML Aerococcus isolates are too fastidious for routine susceptibility studies. Aerococcus are usually susceptible to penicillin, amoxicillin, piperacillin, cefipime, rifampin and vancomycin. Moderate to good activity occurs with the quinolones, tetracyclines and erythromycin. ([employer] [place] and Textbook of Diagnostic Microbiology 6th Ed. 2006, p. 705-6.) * ML - Main Lab . END OF REPORT DEPARTMENT OF PATHOLOGY, [address] [place] [address] Ramiro Palomino M.D. Director [facility] # [id number] 13 [id number] 14 SEE RESULT BELOW Name: ZO SEGAL : [address]: Josiah Pack III, MD Acct: [id number] Unit: [id number] AGE: 87 Location: [facility] Re08/10/17 SEX: M Status: REG REF SPEC: [id number] ARELY: 08/10/17-[address] [facility] [address]: Josiah Pack III, MD REQ: [id number] RECD: 08/10/17-1306 STATUS: COMP _ SOURCE: URINE [facility]: ORDERED: Urine Culture COMMENTS: [id number] Urine Source: Random Procedure Result Reported Site Urine Culture Final 08/12/17- 1404 ML Organism 1 AEROCOCCUS URINAE [place] Count 25-50,000 (Moderate) CFU/ML Organism 2 NORMAL GAGE [place] Count 10-25,000 (Moderate) CFU/ML Aerococcus isolates are too fastidious for routine susceptibility studies. Aerococcus are usually susceptible to penicillin, amoxicillin, piperacillin, cefipime, rifampin and vancomycin. Moderate to good activity occurs with the quinolones, tetracyclines and erythromycin. ([employer] [place] and Textbook of Diagnostic Microbiology 6th Ed. 2006, p. 705-6.) * ML - Main Lab . END OF REPORT DEPARTMENT OF PATHOLOGY, [address] [place] [address] Ramiro Palomino M.D. 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: [id number] 22 Because ethnic data is not always [...] 5 Kidney failure <15 (or dialysis) 24 [id number] 25 Desirable <150 Borderline high 150-199 High [...] 5 Kidney failure <15 (or dialysis) 30 [id number] 31 SEE RESULT BELOW Name: ZO SEGAL : [address]: Josiah Pack III, MD Acct: [id number] Unit: [id number] AGE: 86 Location: [facility] Re06/15/16 SEX: M Status: REG REF SPEC: [id number] ARELY: 06/15/16-[address] [facility] [address]: Josiah Pack III, MD REQ: [id number] RECD: 06/16/16 STATUS: COMP _ SOURCE: URINE SPDESC: ORDERED: Urine Culture COMMENTS: [id number] Procedure Result Reported Site Urine Culture Final 06/17/16- 1329 ML No Growth (<1,000 CFU/mL) * ML - MAIN LAB ([facility]) . END OF REPORT * ML=Testing performed at Main Lab DEPARTMENT OF PATHOLOGY, [address] [place] [address] Ramiro Palomino M.D. Director [facility] # [id number] 32 Acute inflammation: >10.00 33 Desirable <150 [...] levels of PSA measured using the [employer] DXI Hybritech immunoassay should not be interpreted [...] Serum levels of PSA measured using the [employer] DXI Hybritech immunoassay should not be interpreted [...] levels of PSA measured using the [employer] DXI Hybritech immunoassay should not be interpreted as absolute evidence of the presence or absence of disease. The PSA value should be used in conjunction with other pertinent clinical diagnostic procedures. The values obtained with different assay methods or kits cannot be used interchangeably. 51 A metabolite of Naproxen, O-desmethylnaproxen, has been shown to interfere with the [place] method for measuring total bilirubin. Samples from [...] LEVELS OF PSA MEASURED USING THE ANASTASIA [employer] ACCESS HYBRITECH IMMUNOASSAY SHOULD NOT BE INTERPRETED ABSOLUTE EVIDENCE OF THE PRESENCE OR ABSENCE OF DISEASE. THE PSA VALUE SHOULD BE USED IN CONJUNCTION WITH OTHER PERTINENT CLINICAL DIAGNOSTIC PROCEDURES. The values obtained with different assay methods or kits cannot be used interchangeably. 56 * SERUM LEVELS OF PSA MEASURED USING THE ANASTASIA Azuro ACCESS HYBRITECH IMMUNOASSAY SHOULD NOT BE INTERPRETED [...] LEVELS OF PSA MEASURED USING THE ANASTASIA Azuro ACCESS HYBRITECH IMMUNOASSAY SHOULD NOT BE INTERPRETED ABSOLUTE EVIDENCE OF THE PRESENCE OR ABSENCE OF DISEASE. THE PSA VALUE SHOULD BE USED IN CONJUNCTION WITH OTHER PERTINENT CLINICAL DIAGNOSTIC PROCEDURES. 64 ANY BLOOD NOT GIVEN WILL BE RELEASED AT 0700 ON THE ABOVE DATE UNLESS DOCTOR NOTIFIES LAB OTHERWISE. 65 [id number] ON PC TRANSFUSED 01/22/10 0944 66 [id number] ON PC TRANSFUSED 01/22/10 1224 67 Anion gap measurement may be of limited value in the presence of any alkalosis, especially in a combined acid base disorder. . 68 Note change in reference range as of 11/15/07. The change was based on recommendations from the [place] [employer]. 69 Please note change in [...] LEVELS OF PSA MEASURED USING THE ANASTASIA [employer]uro ACCESS HYBRITECH IMMUNOASSAY SHOULD NOT BE INTERPRETED [...] change was based on recommendations from the [place] [employer]. 83 Please note change in [...] LEVELS OF PSA MEASURED USING THE ANASTASIA Azuro ACCESS HYBRITECH IMMUNOASSAY SHOULD NOT BE INTERPRETED [...] SERUM LEVELS OF PSA MEASURED USING THE [employer] ACCESS HYBRITECH IMMUNOASSAY SHOULD NOT BE INTERPRETED ABSOLUTE EVIDENCE OF THE PRESENCE OR ABSENCE OF DISEASE. THE PSA VALUE SHOULD BE USED IN CONJUNCTION WITH OTHER PERTINENT CLINICAL DIAGNOSTIC PROCEDURES. A PSA value in the range of 0.1 to 0.6 ng/ml is indeterminate if being used as an indicator of recurrent or residual disease. . Procedures Date Code Description Status 04/11/2013 25616 ECHO Transthoracic, Real-Time 2D With Doppler And Color Completed Flow 04/11/2013 86221 EKG Tracing & Interpretation Completed 11/27/2012 31712 Color Flow Doppler/Interp & Reprt Completed 11/27/2012 44023 Pulse Wave/Continuous-Interp.RPT Completed 11/27/2012 30222 ECHO Transthorasic Realtime 2D W Doppler & Color Flow Completed Hosp 01/04/2012 42602 ECHO Transthoracic, Real-Time 2D With Doppler And Color Completed Flow 02/03/2010 17279 Rad Exam; Knee, Ap&L Completed 01/19/2010 27928 TKR Total Knee Replacement Completed 01/19/2010 14570 TKR Total Knee Replacement Completed 12/29/2009 93155 EKG Tracing & Interpretation Completed 11/18/2009 33270 Xray Knee 3 Views Completed 11/18/2009 94234 Rad Exam; Knee, Ap&L Completed 04/21/2009 90649 ECHO Transthoracic, Real-Time 2D With Doppler And Color Completed Flow 10/15/2008 17239 EKG Tracing & Interpretation Completed 10/23/2007 74937 Color Doppler Completed 10/23/2007 24536 Color Doppler Completed 10/23/2007 70957 Pulse Doppler & Continuous Wave Completed 10/23/2007 08621 Pulse Doppler & Continuous Wave Completed 10/23/2007 03729 Pulse Doppler & Continuous Wave Completed 10/23/2007 89902 Echocardiogram Completed 10/23/2007 24297 Echocardiogram Completed 09/13/2006 75107 Color Doppler Completed 09/13/2006 88997 Color Doppler Completed 09/13/2006 15670 Pulse Doppler & Continuous Wave Completed 09/13/2006 27346 Echocardiogram Completed 09/13/2006 75872 Echocardiogram Completed 07/05/2006 58654599 Colonoscopy Completed Encounters Type Date Location Provider Dx Diagnosis Office Visit 2017 [facility] Josiah Chi R60.0 Localized edema 2:00p Enedina Pack M.D. [facility] Office Visit 04/04/2017 Elisabeth Chi R09.02 Hypoxemia 10:20a Enedina Pack M.D. [facility] Office Visit 02/03/2017 Elisabeth Chi I10 Essential (primary) 10:40a Enedina Pack M.D. hypertension [facility] E78.00 Pure hypercholesterolemia, unspecified F03.90 Unspecified dementia without behavioral disturbance R09.02 Hypoxemia Office Visit 08/27/2015 2:20p Elisabeth Chi M79.672 Pain in left foot Enedina Pack M.D. [place] Office Visit 08/07/2015 11:40a Elisabeth Chi M54.2 Cervicalgia Enedina Pack M.D. [place] Z85.46 Personal history of malignant neoplasm of prostate Office Visit 11/18/2014 2:40p Elisabeth Chi 680.2 Carbuncle & Enedina Pack M.D. [facility] [place] 401.1 Hypertension Benign Office Visit 07/05/2013 10:00a Elisabeth Chi V70.0 Examination Enedina Pack M.D. [facility] [place] Routine [facility] 290.0 Dementia Senile Uncomplicated 401.1 Hypertension Benign 424.1 Aortic Valve Disorder V74.1 Screening Examination Pulmonary Tuberculosis 272.0 Hypercholesterolemia Pure V10.46 History Personal Malignant Neoplasm Prostate 441.9 Aneurysm Aortic W/O Rupture Unspec Site Office Visit 05/16/2013 1:20p Elisabeth Chi 424.1 Aortic Valve Enedina Pack M.D. 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 Rupture Unspec Site 424.1 Aortic Valve Disorder V04.81 Need For Prophylactic Vaccination & Inoculation/Influenza Office Visit 02/06/2012 9:40a [facility] Internal Josiah Chi 401.1 Hypertension [facility] [place] 424.1 Aortic Valve Disorder Office Visit 01/04/2012 9:00a [facility] Internal Josiah Chi 401.1 Hypertension [facility] [place] 272.0 Hypercholesterolemia Pure 424.1 Aortic Valve Disorder 715.96 Osteoarthrosis Unspec Genlzd Or Localized Lower Leg V10.46 History Personal Malignant Neoplasm Prostate V10.83 History Personal Malignant Neoplasm Of The Skin Other Office Visit 07/01/2011 1:00p [facility] Cherelle Chi 401.1 Hypertension Thomas Cruz 272.0 [...] Leg Office Visit 04/23/2010 DO Not Use [employer] [employer] Josiah E. 401.1 Hypertension Benign 11:00a AT Jose Pack M.D. 272.0 Hypercholesterolemia Pure 424.1 Aortic Valve Disorder Office Visit 12/29/2009 10:00a DO Not Use Supervisor [employer] Josiah E. V72.83 Examination AT Jose Pack [...] Office Visit 10/21/2009 9:00a DO Not Use Supervisor [employer] Josiah E. 401.1 Hypertension Benign AT Jose Pack M.D. 272.0 Hypercholesterolemia Pure 424.1 Aortic Valve Disorder V10.46 History Personal Malignant Neoplasm Prostate 715.09 Osteoarthrosis Generalized Multiple Sites Office Visit 04/20/2009 11:00a DO Not Use Supervisor [employer] Josiah E. 401.1 Hypertension Benign AT Jose Pack M.D. 272.0 Hypercholesterolemia Pure 424.1 Aortic Valve Disorder Office Visit 10/15/2008 9:30a Rdaha Rahman EEduardo 785.2 Murmur Cardiac Assoc AT Thomas Pack Undiagnosed [facility] 272.0 Hypercholesterolemia Pure 401.1 Hypertension Benign Office Visit 04/03/2008 11:00a Radha Rahman EEduardo 785.2 Murmur Cardiac Assoc AT Thomas Pack Undiagnosed [facility] 272.0 Hypercholesterolemia Pure 401.1 Hypertension Benign V06.5 Tetanus Diphtheria (DT) Office Visit 10/02/2007 Radha Rahman EEduardo 272.0 Hypercholesterolemia Pure 11:15a Assoc AT Thomas Pack [facility] 401.1 Hypertension Benign Office Visit 04/03/2007 Radha Chi 569.49 Rectum & Anus Disorder 11:30a Assoc AT Thomas Pack Other [facility] Office Visit 12/13/2006 [facility] Josiah Chi 272.0 Hypercholesterolemia Pure 9:45a Assoc AT Thomas Pack [facility] 401.1 Hypertension Benign Plan of Treatment Future Appointment(s):08/28/2018 2:20 pm - Josiah Pack M.D. at [facility] Internal Medicine [facility]02/27/2018 - Josiah Pack M.D.R55 Syncope and collapseNew Orders:Overnight Oximetry, Ordered: 02/27/18Holter Monitor, Ordered : 02/27/18I10 Essential (primary) hypertensionFollow up:wellness exam in 6 months or prnE78.00 Pure hypercholesterolemia, syjrjzeudhwH13.00 Dyspnea, unspecified
[2018-03-24] MEDS ORDERED: Atropine 1MG/ML INJ* 1 ML VIAL IV PUSH ONE (18:58)
--- NOTE | 2018-03-24 19:00 | ED ---
Altered Mental Status - HPI Summary HPI Summary: Pt is an 87 y/o male brought in by EMS who presents to the ED c/o AMS. He was sent from [facility]. Pt was eating dinner then became unresponsive, possible syncope. He is normally walking around and talking. As per EMS, pt was mildly responsive, bradycardic, and hypotensive, with his HR in the 40s, BP in the 70's. Pt rouses to verbal, tactile and painful stimuli, and is combative. He was given a total of 1.5 mg Atropine by EMS, which didnt change his BP or mental status for EMS but pt's initial BP in the ED was 103 systolic and his HR was in the 60's (sinus rhythm). His daughter was left a message by [place]. Pt is a non-hospital DNR as per [facility]. No MOLST form is with pt. Vitals while in room: BP 103/58, HR 67 bpm, O2 sat 100%. Pt is a level 5 caveat due to his dementia and AMS. Spoke to daughter Danica Martin at [phone]. She is currently visitng in [place], but lives locally, and states her father has dementia and had a similar episode a few weeks ago. Dr. Pack would like to do another sleep test and heart monitor soon. Her father does not have capacity, and daughter is his health care proxy and confirms that pt is a DNR DNI, which was witnessed by Elni Batista, RN and Joselyn Aguilar RN by phone. - History Of Current Complaint Stated Complaint: UNRESPONSIVE Hx Obtained From: Family/Marketing Operations Assistant - daughter Danica by phone, EMS, Other: - [facility] Hx From Patient Unobtainable Due To: Altered Mental Status Onset/Duration: Still Present, Suddenly - ADMINISTRATION INTERN Timing: Constant Severity Initially: Severe Severity Currently: Mild Character: Responsiveness - decreased Aggravating Factor(s): Nothing Alleviating Factor(s): Nothing Associated Signs And Symptoms: Positive: Negative - Allergies/Home Medications Allergies/Adverse Reactions: Allergies Allergy/AdvReac Type Severity Reaction Status Date / Time No Known Allergies Allergy Verified 10/11/17 09:02 PMH/Surg Hx/FS Hx/Imm Hx Previously Healthy: No Endocrine/Hematology History: Denies: Hx Diabetes Cardiovascular History: Reports: Hx Hypertension - CONTROLLED WITH MEDS, Hx Peripheral Vascular Disease - RIGHT ILLIAC, Hx Rheumatic Fever - A TEEN, Hx Valvular Heart Disease - HEART VALVE replacement Denies: Hx Congestive Heart Failure, Hx Pacemaker/ICD, Other Cardiovascular Problems/Disorders Respiratory History: Denies: Hx Asthma, Hx Chronic Obstructive Pulmonary Disease (COPD), Other Respiratory Problems/Disorders GI History: Denies: Other GI Disorders History: Denies: Hx Renal Disease Musculoskeletal History: Reports: Hx Arthritis - HANDS, FEET Denies: Other Musculoskeletal History Sensory History: Reports: Hx Cataracts - WOLF, Hx Contacts or Glasses - GLASSES, Hx Hearing Aid Opthamlomology History: Reports: Hx Cataracts - WOLF, Hx Contacts or Glasses - GLASSES Neurological History: Reports: Hx Nerve Disease - NEUROPATHY LEFT SIDE, Other Neuro Impairments/Disorders - DEMENTIA Psychiatric History: Denies: Hx Panic Disorder - Cancer History Cancer Type, Location and Year: PROSTATE Hx Chemotherapy: Yes - Surgical History Surgery Procedure, Year, and Place: May.02 - AROTIC VALVE REPLACEMENT ( DAUGHTER WILL BRING AT TIME OF APT). WOLF KNEE REPLACEMENT Hx Anesthesia Reactions: Yes - AGGRESSIVE WITH VALVE REPLACEMENT Infectious Disease History: No Infectious Disease History: Denies: Traveled Outside the [place] in Last 30 Days - Family History Known Family History: Positive: Unknown - level 5 caveat - dementia - Social History Lives: [facility] Alcohol Use: None Hx Substance Use: No Substance Use Type: Reports: None Hx Tobacco Use: Yes Smoking Status (MU): Former Smoker Type: Pipe Review of Systems Positive: Other - syncope at dineer Positive: Other - Incontinence Positive: incontinence - of yellow stool on admission into his brief Neurological: Other - AMS Positive: Syncope Positive: Other - combative with stimulation All Other Systems Reviewed And Are Negative: No Physical Exam - Summary Physical Exam Summary: Appearance:chronically ill-appearing, no pain distress, well-nourished, combative, quiet for a few seconds then wakes up and swears Skin: Warm, color reflects adequate perfusion, dry Head: Normal Head/Face inspection, atraumatic Eyes: Conjunctiva clear ENT: Normal inspection Neck: Supple, no nodes, no JVD Respiratory: Rales in both bases, diminished breath sounds, no respiratory distress, breathing not labored Cardio: RRR, No murmur, pulses normal, brisk capillary refill, no LE edema, midline chest scar Abdomen: Soft, nontender, incontinent of yellow stool, wearing Depends Bowel sounds: Present Musculoskeletal: Strength Intact/ROM intact, no calf tenderness, no edema. Psychological: dementia, combative then calm Neuro: Alert, muscle tone normal, no focal deficit, moves all extremities. Triage Information Reviewed: Yes Vital Signs On Initial Exam: Initial Vitals Temp Pulse Resp BP Pulse Ox 96.7 F 67 22 103/58 99 03/24/18 18:49 12 18:49 03/24/18 18:49 03/24/18 18:49 03/24/18 18:49 Vital Signs Reviewed: Yes Diagnostics - Vital Signs Vital Signs Temp Pulse Resp BP Pulse Ox 03/24/18 18:49 96.7 F 67 22 103/58 99 - Laboratory Result Diagrams: 03/24/18 19:40 03/24/18 19:40 Lab Statement: Any lab studies that have been ordered have been reviewed, and results considered in the medical decision making process. - Radiology CXR Radiology Interpretation Completed By: ED Physician Summary of Radiographic Findings: Poor inspiration. No acute disease. Pending official radiology report. - EKG 18:49 Cardiac Rate: NL - 61 bpm EKG Rhythm: Sinus Rhythm EKG Comparison: No Significant Change - Compared to 10/11/17. Summary of EKG Findings: An EKG at 18:49 reveals nml AV/IV CT, nml QTc, 1st degree AVB, V1 with artifact. Re-Evaluation - Re-Evaluation First Eval Re-Evaluation Time: 19:35 Change: Unchanged Comment: Pt is lying comfortably getting his blood drawn. Second Eval Re-Evaluation Time: 21:00 Change: Unchanged Comment: BP 131/99 P 64. Pt going to CTA. Altered Mental Statu Course/Dx - Course Course Of Treatment: Pt is an 87 y/o male brought in by EMS who presents to the ED c/o AMS. He was sent from [facility]. Pt was eating dinner then became unresponsive, possible syncope. As per EMS, pt was mildly responsive, bradycardic, and hypotensive, with his HR in the 40s, BP in the 70's. Pt rouses to verbal, tactile and painful stimuli, and is combative. Vitals while in room: BP 103/58, HR 67 bpm, O2 sat 100%. Pt is a level 5 caveat due to his dementia and AMS. Spoke to daughter who states her father has dementia and had a similar episode a few weeks ago. Dr. Pack would like to do another sleep test and heart monitor soon. Her father is not at capacity, and is a DNR DNI. A physical exam revealed combative, quiet for a few seconds then wakes up and swears, Rales in both bases, diminished breath sounds, no respiratory distress, breathing not labored, midline chest surgical scar, incontinent of yellow stool , wearing Depends. A CXR revealed poor inspiration and no acute disease. An EKG revealed 1st degree AVB, V1 with artifact. Bloodwork reviewed. Final dx are syncope and arrhythmia. Dr. Harding accepts pt for admission. CTA chest was ordered for Dr. Harding. MOLST form completed. Pt admitted to Dr. Harding with CTA chest and CT brain pending. - Diagnoses Differential Diagnosis/HQI/PQRI: Hypoglycemia, Hypoxia, Intracranial Bleed, Medication Reaction, Metabolic Disorder Provider Diagnoses: Syncope, Arrhythmia - Provider Notifications Discussed Care Of Patient With: Pretty Harding Time Discussed With Above Provider: 20:47 Instructed by Provider To: Admit As Inpatient Discharge - Sign-Out/Discharge Documenting (check all that apply): Patient Departure - Admit - Discharge Plan Condition: Stable Disposition: ADMITTED TO [facility] Referrals: Josiah Pack MD [Primary Care Provider] - - Billing Disposition and Condition Condition: STABLE Disposition: Admitted to [facility] - Attestation Statements Document Initiated by Jessica: Yes Documenting Scribe: Italia Gutierrez Provider For Whom Scribe is Documenting (Include Credential): Jeimy Martinez MD Scribe Attestation: Italia Allen scribed for Jeimy Martinez MD on 03/24/18 at 2105. Scribe Documentation Reviewed: Yes Provider Attestation: The documentation as recorded by the Italia canela accurately reflects the service I personally performed and the decisions made by , Jeimy Martinez MD Status of Scribe Document: Viewed
[2018-03-24 19:50] LABS: ABS Basophils 0.1 10^3/ul (0-0.2); ABS Eosinophils 0.2 10^3/ul (0-0.6); ABS Lymphocytes 0.9 10^3/ul (1.0-4.8); ABS Monocytes 0.7 10^3/ul (0-0.8); ABS Neutrophils 6.1 10^3/ul (1.5-7.7); ABS Nucleated RBC 0 10^3/ul; Eosinophil % 2.7 %; Hematocrit 37 % (42-52); Hemoglobin 11.9 g/dl (14.0-18.0); Lymphocyte % 11.2 %; Mean Corpuscular HGB Conc 32 g/dl (31-36); Mean Corpuscular Hemoglobin 30 pg (27-31); Mean Corpuscular Volume 93 fL (80-94); Mean Platelet Volume 9.4 fL (7.4-10.4); Nucleated Red Blood Cells % 0; Platelet Count 181 10^3/ul (150-450); Red Blood Count 3.91 10^6/ul (4.00-5.40); Red Cell Distribution Width 14 % (10.5-15)
[2018-03-24 19:59] LABS: Activated Partial Thrombo Time 25.6 seconds (26.0-36.3); INR 0.98 (0.77-1.02)
[2018-03-24 20:08] LABS: Albumin 3.1 g/dL (3.2-5.2); Albumin/Globulin Ratio 0.9 (1-3); BUN/Creatinine Ratio 22.2 (8-20); EGFR Non-African American 54.4 (>60); Globulin 3.3 g/dL (2-4); Magnesium 1.8 mg/dL (1.9-2.7); Potassium 4.3 mmol/L (3.5-5.0); Total Bilirubin 0.4 mg/dL (0.2-1.0); Total Protein 6.4 g/dL (6.4-8.9)
[2018-03-24] MEDS ORDERED: Iodixanol* (CONTRAST) 320 MG/ML 100 ML SDV IV ONE (20:46)
[2018-03-24 20:55] LABS: TSH (Thyroid Stimulating Horm) 1.89 mcIU/mL (0.34-5.60)
[2018-03-24] MEDS ORDERED: Ziprasidone IM INJ* 20 MG/ML VIAL ONE (21:03)
[2018-03-24] MEDS ORDERED: Sterile Water for Inj* 10 ML ONE (21:03)
[2018-03-24] MEDS ORDERED: Ziprasidone IM INJ* 20 MG/ML VIAL IM STA (21:04)
[2018-03-24] MEDS ORDERED: Loperamide LIQ* 2 MG/10 ML UDC PO PRN (21:05)
[2018-03-24] MEDS ORDERED: Acetaminophen TAB* 325 MG PO PRN (21:07)
[2018-03-24] MEDS ORDERED: NS 0.9% 1000 ML* 1,000 ML IV SCH (21:15)
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
[2018-03-25] MEDS ORDERED: Ziprasidone IM INJ* 20 MG/ML VIAL IM ONE (00:29)
[2018-03-25 05:35] LABS: ABS Basophils 0.1 10^3/ul (0-0.2); ABS Eosinophils 0.2 10^3/ul (0-0.6); ABS Lymphocytes 1.3 10^3/ul (1.0-4.8); ABS Monocytes 0.9 10^3/ul (0-0.8); ABS Neutrophils 6.9 10^3/ul (1.5-7.7); ABS Nucleated RBC 0 10^3/ul; Hematocrit 38 % (42-52); Hemoglobin 12.5 g/dl (14.0-18.0); Lymphocyte % 13.6 %; Mean Corpuscular HGB Conc 33 g/dl (31-36); Mean Corpuscular Hemoglobin 30 pg (27-31); Mean Corpuscular Volume 92 fL (80-94); Mean Platelet Volume 9.1 fL (7.4-10.4); Nucleated Red Blood Cells % 0; Platelet Count 186 10^3/ul (150-450); Red Blood Count 4.16 10^6/ul (4.00-5.40); Red Cell Distribution Width 14 % (10.5-15); White Blood Count 9.3 10^3/ul (3.5-10.8)
[2018-03-25 05:38] LABS: Urine Appearance Clear; Urine Bilirubin Negative (Negative); Urine Blood Negative (Negative); Urine Color Straw; Urine Glucose Negative (Negative); Urine Ketones Negative (Negative); Urine Nitrite Negative (Negative); Urine Protein Negative (Negative); Urine Specific Gravity 1.008 (1.010-1.030); Urine Urobilinogen Negative (Negative)
[2018-03-25 05:53] LABS: BUN/Creatinine Ratio 21.4 (8-20); Calcium 9.5 mg/dL (8.6-10.3); EGFR Non-African American 62.3 (>60); HDL Cholesterol 47.2 mg/dL
[2018-03-25 06:07] LABS: TSH (Thyroid Stimulating Horm) 0.92 mcIU/mL (0.34-5.60)
[2018-03-25] MEDS: Umeclidin/Vilant 62.5 MDI 62.5/25 mcg 14 INH ELLIPTA DEVICE INH SCH (07:49)
[2018-03-25] MEDS ORDERED: Metoprolol Tartrate TAB* 50 mg PO SCH (09:00)
[2018-03-25] MEDS: Heparin VIAL(*) 5000 UNITS/ML VIAL (FIVE THOUSAND) SUBCUT SCH ×3 (09:21→21:46)
[2018-03-25] MEDS: Aspirin EC TAB* 81 MG TAB.EC PO SCH (09:21)
[2018-03-25] MEDS: Enalapril TAB* 5 MG PO SCH (09:21)
[2018-03-25] MEDS: Metoprolol Tartrate TAB* 25 MG PO SCH ×2 (09:21→19:29)
[2018-03-25] MEDS: OMEGA-3 FATTY ACIDS (NF) 1,000 MG CAP PO SCH (09:21)
[2018-03-25] MEDS: Memantine TAB* 10 MG PO SCH ×2 (09:21→19:29)
[2018-03-25] MEDS: Atorvastatin* 10 MG TAB PO SCH (09:21)
[2018-03-25] MEDS: Calcium Carbonate TAB* 1250 MG (CALCIUM 500 MG) PO SCH ×2 (09:21→19:29)
[2018-03-25] MEDS: Cholecalciferol TAB* 1000 UNITS PO SCH (09:21)
[2018-03-25] MEDS: amLODIPine TAB* 5 MG PO SCH (09:21)
[2018-03-25] MEDS ORDERED: Iodixanol 320 (CONTRAST) 100 ML SDV IV ONE (11:49)
--- NOTE | 2018-03-25 15:49 | PN ---
Subjective Date of Service: 03/25/18 Interval History: Patient is very confused today but is generally amiable when being examined. Patient denies pain. Patient is not at all oriented and is not able to engage with ROS. Patient had a fall this AM which was witnessed and involved sliding gently to the floor out of bed with no apparent injury. Family History: Unchanged from Admission Social History: Unchanged from Admission Past Medical History: Unchanged from Admission Objective Active Medications: Acetaminophen (Tylenol Tab*) 650 mg PO Q4H PRN PRN Reason: PAIN/FEVER Amlodipine Besylate (Norvasc Tab*) 5 mg PO DAILY [facility] Last Admin: 03/25/18 09:21 Dose: 5 mg Aspirin (Aspirin Ec Tab*) 81 mg PO DAILY [facility] Last Admin: 03/25/18 09:21 Dose: 81 mg Atorvastatin Calcium (Lipitor*) 10 mg PO DAILY [facility] Last Admin: 03/25/18 09:21 Dose: 10 mg Calcium Carbonate (Calcium Carbonate Tab*) 1,250 mg PO BID [facility] Last Admin: 03/25/18 09:21 Dose: 1,250 mg Cholecalciferol (Vitamin D Tab*) 1,000 units PO DAILY [facility] Last Admin: 03/25/18 09:21 Dose: 1,000 units Enalapril Maleate (Vasotec Tab*) 10 mg PO DAILY [facility] Last Admin: 03/25/18 09:21 Dose: 10 mg Fish Oil (Fish Oil (Nf)) 1,000 mg PO DAILY [facility]; Protocol Last Admin: 03/25/18 09:21 Dose: Not Given Heparin Sodium (Porcine) (Heparin Vial(*)) 5,000 units SUBCUT Q8HR [facility] Last Admin: 03/25/18 13:15 Dose: 5,000 units Sodium Chloride (Ns 0.9% 1000 Ml*) 1,000 mls @ 75 mls/hr IV PER RATE [facility] Last Admin: 03/25/18 07:34 Dose: 75 mls/hr Loperamide HCl (Imodium Liq*) 2 mg PO DAILY PRN PRN Reason: LOOSE STOOLS Memantine (Namenda Tab*) 10 mg PO BID [facility] Last Admin: 03/25/18 09:21 Dose: 10 mg Metoprolol Tartrate (Lopressor Tab*) 25 mg PO BID [facility] Last Admin: 03/25/18 09:21 Dose: 25 mg (Melatonin [ (Melatonin] 10 Mg)) 10 mg PO BEDTIME [facility] Umeclidinium/Vilanterol (Anoro 62.5/25 Ellipta Device (Nf)) 1 inh INH DAILY [facility] Last Admin: 03/25/18 07:49 Dose: Not Given Vital Signs - 8 hr 03/25/18 03/25/18 03/25/18 10:52 12:05 12:07 Temperature 97.2 F 97.4 F Pulse Rate 65 51 Respiratory 16 16 Rate Blood Pressure 103/72 107/70 (mmHg) O2 Sat by Pulse 95 95 Oximetry 03/25/18 12:10 Temperature Pulse Rate 60 Respiratory Rate Blood Pressure 106/65 (mmHg) O2 Sat by Pulse Oximetry Oxygen Devices in Use Now: None Appearance: Patient is an 87yo male who appears stated age and is sitting in the bed in NAD. Eyes: No Scleral Icterus, PERRLA Ears/Nose/Mouth/Throat: NL Teeth, Lips, Gums, Clear Oropharnyx, Mucous Membranes Moist Neck: NL Appearance and Movements; NL JVP, Trachea Midline Respiratory: Symmetrical Chest Expansion and Respiratory Effort, - - Diminished throughout. Cardiovascular: NL Sounds; No Murmurs; No JVD, RRR, No Edema Abdominal: NL Sounds; No Tenderness; No Distention, No Hepatosplenomegaly Lymphatic: No Cervical Adenopathy Extremities: No Edema, No Clubbing, Cyanosis Skin: No Rash or Ulcers, No Nodules or Sclerosis Neurological: - - CN II-XII intact. Moves all limbs. Result Diagrams: 03/25/18 05:18 03/25/18 05:13 Microbiology and Other Data: Microbiology 03/25/18 05:20 Nasal Screen MRSA (PCR) - Final Nasal Mrsa Detected Assess/Plan/Problems-Billing Assessment: this is 87 yr old male with a history significant for mod dementia, prostate cancer, and HTN. Patient was in his normal state of health when he had a prolonged episode of syncope with bradycardia and hypotension with an episode of diarrhea. Patient was admitted for evaluation of syncope and is stable but combative. - Patient Problems (1) Bradycardia Current Visit: Yes Status: Acute Code(s): R00.1 - BRADYCARDIA, UNSPECIFIED SNOMED Code(s): 60596160 Comment: - Symptomatic bradycardia, unknown cause, possible vagal stimulus. - No evidence of [place] - Check Echo - Stop Donepezil, Decrease Metoprolol, possible indication for termite technician monitoring - Consider Cardiology consult if persistent symptomatic recurrences. (2) Pulmonary edema Current Visit: Yes Status: Acute Code(s): J81.1 - CHRONIC PULMONARY EDEMA SNOMED Code(s): 57388306 Comment: - On Ct scan with signs of pulmonary hypertension - Will get echo, patient has history of AI - Will no diurese at thie time due to no obvious signs of fluid overload. (3) Elevated d-dimer Current Visit: Yes Status: Acute Code(s): R79.89 - OTHER SPECIFIED ABNORMAL FINDINGS OF BLOOD CHEMISTRY SNOMED Code(s): 302827595 Comment: - Unknown cause, CTA chest negative for PE and LE doppler negative for DVT. (4) HTN (hypertension) Current Visit: Yes Status: Acute Code(s): I10 - ESSENTIAL (PRIMARY) HYPERTENSION SNOMED Code(s): 94872567 Comment: - Decrease Metoprolol and Monitor. (5) Moderate dementia with behavioral disturbance Current Visit: Yes Status: Acute Code(s): F03.91 - UNSPECIFIED DEMENTIA WITH BEHAVIORAL DISTURBANCE SNOMED Code(s): 98453898 Comment: - PRN haldol for agitation - Safety Monitor (6) PVD (peripheral vascular disease) Current Visit: Yes Status: Acute Code(s): I73.9 - PERIPHERAL VASCULAR DISEASE, UNSPECIFIED SNOMED Code(s): 867686755 Comment: - Asymptomatic. (7) DVT prophylaxis Current Visit: Yes Status: Acute Code(s): JIO5273 - SNOMED Code(s): 830257116 Comment: - Heparin SubQ. (8) DNR (do not resuscitate) Current Visit: Yes Status: Acute Status and Disposition: Inpatient for evaluation of syncope.
[2018-03-25] MEDS: (Melatonin [Melatonin] 10 MG) PO SCH (19:29)
[2018-03-25] MEDS: Haloperidol INJ IV/IM* 5 MG/ML AMP IV SLOW PU PRN (20:26)
[2018-03-25] MEDS ORDERED: Donepezil TAB* 5 MG PO SCH (21:00)
[2018-03-26] MEDS: Heparin VIAL(*) 5000 UNITS/ML VIAL (FIVE THOUSAND) SUBCUT SCH ×3 (05:04→21:10)
[2018-03-26 05:42] LABS: ABS Basophils 0.1 10^3/ul (0-0.2); ABS Eosinophils 0.1 10^3/ul (0-0.6); ABS Lymphocytes 1.2 10^3/ul (1.0-4.8); ABS Neutrophils 5.8 10^3/ul (1.5-7.7); ABS Nucleated RBC 0 10^3/ul; Eosinophil % 1.5 %; Hematocrit 36 % (42-52); Hemoglobin 12.1 g/dl (14.0-18.0); Mean Corpuscular HGB Conc 34 g/dl (31-36); Mean Corpuscular Hemoglobin 31 pg (27-31); Mean Corpuscular Volume 92 fL (80-94); Mean Platelet Volume 8.8 fL (7.4-10.4); Nucleated Red Blood Cells % 0.1; Platelet Count 178 10^3/ul (150-450); Red Blood Count 3.89 10^6/ul (4.00-5.40); Red Cell Distribution Width 14 % (10.5-15); White Blood Count 8.2 10^3/ul (3.5-10.8)
[2018-03-26 06:05] LABS: BUN/Creatinine Ratio 19.1 (8-20); Calcium 9.1 mg/dL (8.6-10.3); EGFR Non-African American 63.6 (>60); Magnesium 1.6 mg/dL (1.9-2.7); Potassium 3.9 mmol/L (3.5-5.0)
[2018-03-26] MEDS: Umeclidin/Vilant 62.5 MDI 62.5/25 mcg 14 INH ELLIPTA DEVICE INH SCH (07:23)
[2018-03-26] MEDS: OMEGA-3 FATTY ACIDS (NF) 1,000 MG CAP PO SCH (07:23)
[2018-03-26] MEDS: Aspirin EC TAB* 81 MG TAB.EC PO SCH (07:30)
[2018-03-26] MEDS: Metoprolol Tartrate TAB* 25 MG PO SCH ×2 (07:32→19:46)
[2018-03-26] MEDS: Memantine TAB* 10 MG PO SCH ×2 (07:33→19:46)
[2018-03-26] MEDS: Enalapril TAB* 5 MG PO SCH (07:33)
[2018-03-26] MEDS: Atorvastatin* 10 MG TAB PO SCH (07:34)
[2018-03-26] MEDS: amLODIPine TAB* 5 MG PO SCH (07:34)
[2018-03-26] MEDS: Calcium Carbonate TAB* 1250 MG (CALCIUM 500 MG) PO SCH ×2 (07:35→19:46)
[2018-03-26] MEDS: Cholecalciferol TAB* 1000 UNITS PO SCH (07:35)
[2018-03-26] MEDS ORDERED: Magnesium Sulf 4 GM/100 ML IV* 4,000 MG/100 ML BAG IVPB ONE (11:30)
[2018-03-26] MEDS ORDERED: Perflutren Lipid Microsphere* 3 ML VIAL ONE (11:33)
--- NOTE | 2018-03-26 14:12 | ECHO ---
Patient: ZO PIÑA [facility] Rec#: [id number] : 1930 Date: 03/26/2018 Age: 87y Height: 177.8 cm / 70.0 in Weight: 90.72 kg / 199.9 lbs Sex: M BSA: 2.09 Room#: 438 Admit Date#: 03/24/2018 Type: Inpatient Referring: Pretty Harding Reading: Onel Rodríguez MD Cloth Beamer: Conchita Zurita RDCS CC: Josiah Pack MD Transthoracic Echocardiogram Indication: Syncope BP: 133/66 HR: 104 Rhythm: Tachycardia Findings History: ,HTN,formersmoker,HLD,dementia. Technical Comments: The study is technically limited due to the patient's smoking history. Transiently combative during study. Definity used to enhance images. The study was technically limited due to the patient's inability to lay in the left lateral decubitus position. Completed at 1217. Left Ventricle: The left ventricular chamber size is normal. Mild concentric left ventricular hypertrophy is observed. Global left ventricular wall motion and contractility are within normal limits. There is normal left ventricular systolic function. The estimated ejection fraction is 55-60%. Abnormal left ventricular diastolic function is observed. Left Atrium: The left atrium is mildly dilated. Right Ventricle: The right ventricle is not well visualized. The right ventricular cavity size is normal. The right ventricular global systolic function is normal. Right Atrium: The right atrium is not well visualized. Aortic Valve: The aortic valve is trileaflet. Mild aortic cusp sclerosis is present. There is no evidence of aortic regurgitation. There is borderline aortic stenosis present. Highest aortic valve velocity was acquired with Pedoff in apical position. Mitral Valve: There is mitral annular calcification. There is trace to mild mitral regurgitation. Tricuspid Valve: The tricuspid valve leaflets are normal. There is trace to mild tricuspid regurgitation. There is evidence of mild pulmonary hypertension. Pulmonic Valve: The pulmonic valve appears normal. There is trace to mild pulmonic regurgitation. There is no pulmonic stenosis. Pericardium: There is no significant pericardial effusion. A pericardial fat pad is visualized. Aorta: There is mild dilatation of the ascending aorta. The aortic arch is not well visualized. There is mild dilatation of the aortic root. Pulmonary Artery: The main pulmonary artery is not well visualized. Venous: The venous system is not well visualized. Due to patient being combative. Contrast: Definity was used to optimize study. A total of 4 ml used. Intravenous contrast was used to enhance endocardial border definition. Conclusions There is normal left ventricular systolic function. The estimated ejection fraction is 55-60%. Global left ventricular wall motion and contractility are within normal limits. The left ventricular chamber size is normal. Mild concentric left ventricular hypertrophy is observed. Abnormal left ventricular diastolic function is observed. The left atrium is mildly dilated. Borderline mild aortic stenosis. There is evidence of mild pulmonary hypertension. There is mild dilatation of the ascending aorta. Since the prior echocardiogram completed , prior severe aortic stenosis reported. Measurements Name Value Normal Range RVIDd (AP) 2D 3.7 cm (0.9 - 2.6) IVSd (2D) 1.3 cm (0.6 - 1) LVPWd (2D) 0.8 cm (0.6 - 1) LVIDd (2D) 4.2 cm (3.6 - 5.4) LVIDs (2D) 2.8 cm - LV FS (2D) 33 % (25 - 45) Aortic Annulus 2.6 cm (1.4 - 2.6) Ao root diameter (2D) 3.9 cm (2.1 - 3.5) Ascending Ao 3.9 cm (2.1 - 3.4) LA dimension (AP) 2D 4.2 cm (2.3 - 3.8) Name Value Normal Range MV E-wave Vmax 0.9 m/sec - MV deceleration time 271 msec - MV A-wave Vmax 1.3 m/sec - MV E:A ratio 0.72 ratio - LV septal e' Vmax 0.06 m/sec - LV lateral e' Vmax 0.08 m/sec - LV E:e' septal ratio 15 ratio - LV E:e' lateral ratio 11.25 ratio - Name Value Normal Range AV Vmax 2.1 m/sec - AV VTI 49.8 cm - AV peak gradient 17.72 mmHg - AV mean gradient 7.62 mmHg - LVOT diameter 2.4 cm - LVOT Vmax 0.9 m/sec - LVOT VTI 25.6 cm - LVOT peak gradient 2.94 mmHg - LVOT mean gradient 1.46 mmHg - JADEN (continuity Vmax) 1.9 cm2 - JADEN (continuity VTI) 2.3 cm2 - Name Value Normal Range TR Vmax 2.7 m/sec - TR peak gradient 29 mmHg - RAP 8 mmHg - RVSP 37 mmHg - Name Value Normal Range PV Vmax 0.8 m/sec - PV peak gradient 2.7 mmHg -
--- NOTE | 2018-03-26 18:09 | PN ---
Subjective Date of Service: 03/26/18 Interval History: Mr Segal is an 87 yo male, admitted with concern for syncope and bradycardia. He is in room with safety monitor due to combative behavior and confusion. He is pleasant and cooperative this morning, denying and pain or discomfort. He has no complaints and has been cooperative with care this morning. One 10 minute episode of bradycardia that was asymptomatic (40s-50s). Family History: Unchanged from Admission Social History: Unchanged from Admission Past Medical History: Unchanged from Admission Objective Active Medications: Acetaminophen (Tylenol Tab*) 650 mg PO Q4H PRN PRN Reason: PAIN/FEVER Amlodipine Besylate (Norvasc Tab*) 5 mg PO DAILY [facility] Last Admin: 03/26/18 07:34 Dose: 5 mg Aspirin (Aspirin Ec Tab*) 81 mg PO DAILY [facility] Last Admin: 03/26/18 07:30 Dose: 81 mg Atorvastatin Calcium (Lipitor*) 10 mg PO DAILY [facility] Last Admin: 03/26/18 07:34 Dose: 10 mg Calcium Carbonate (Calcium Carbonate Tab*) 1,250 mg PO BID [facility] Last Admin: 03/26/18 07:35 Dose: Not Given Cholecalciferol (Vitamin D Tab*) 1,000 units PO DAILY [facility] Last Admin: 03/26/18 07:35 Dose: Not Given Enalapril Maleate (Vasotec Tab*) 10 mg PO DAILY [facility] Last Admin: 03/26/18 07:33 Dose: 10 mg Fish Oil (Fish Oil (Nf)) 1,000 mg PO DAILY [facility]; Protocol Last Admin: 03/26/18 07:23 Dose: Not Given Haloperidol Lactate (Haldol Inj Iv/Im*) 5 mg IV SLOW PU Q6H PRN PRN Reason: AGITATION Last Admin: 03/25/18 20:26 Dose: 5 mg Heparin Sodium (Porcine) (Heparin Vial(*)) 5,000 units SUBCUT Q8HR [facility] Last Admin: 03/26/18 13:33 Dose: 5,000 units Loperamide HCl (Imodium Liq*) 2 mg PO DAILY PRN PRN Reason: LOOSE STOOLS Memantine (Namenda Tab*) 10 mg PO BID [facility] Last Admin: 03/26/18 07:33 Dose: 10 mg Metoprolol Tartrate (Lopressor Tab*) 25 mg PO BID [facility] Last Admin: 03/26/18 07:32 Dose: 25 mg (Melatonin [ (Melatonin] 10 Mg)) 10 mg PO BEDTIME [facility] Last Admin: 03/25/18 19:29 Dose: Not Given Umeclidinium/Vilanterol (Anoro 62.5/25 Ellipta Device (Nf)) 1 inh INH DAILY [facility] Last Admin: 03/26/18 07:23 Dose: Not Given Vital Signs - 8 hr 03/26/18 03/26/18 03/26/18 10:38 12:15 16:18 Temperature 98.3 F 98.1 F Pulse Rate 65 80 Respiratory 20 20 Rate Blood Pressure 119/68 127/59 (mmHg) O2 Sat by Pulse 93 92 96 Oximetry Oxygen Devices in Use Now: None Appearance: Elderly male, lying in bed, in NAD. Eyes: No Scleral Icterus, PERRLA Ears/Nose/Mouth/Throat: Clear Oropharnyx, Mucous Membranes Moist Neck: NL Appearance and Movements; NL JVP Respiratory: Symmetrical Chest Expansion and Respiratory Effort, Clear to Auscultation Cardiovascular: NL Sounds; No Murmurs; No JVD, RRR, No Edema Abdominal: NL Sounds; No Tenderness; No Distention Extremities: No Edema, No Clubbing, Cyanosis Skin: No Rash or Ulcers Neurological: NL Muscle Strength and Tone, - - Alert, oriented to self and knows he is in a hospital. Lines/Tubes/Other Access: Clean, Dry and Intact Peripheral IV Nutrition: Taking PO's Result Diagrams: 03/26/18 05:31 03/26/18 05:31 Microbiology and Other Data: Microbiology 03/25/18 05:20 Nasal Screen MRSA (PCR) - Final Nasal Mrsa Detected EKG Data: ns no acute st t change Assess/Plan/Problems-Billing Assessment: Mr. Segal is 87 yr old male with a history significant for mod dementia, prostate cancer, and HTN. Patient was in his normal state of health when he had a prolonged episode of syncope with bradycardia and hypotension with an episode of diarrhea. Patient was admitted for evaluation of syncope and is stable but combative. - Patient Problems (1) Bradycardia Code(s): R00.1 - BRADYCARDIA, UNSPECIFIED Comment: No further episodes of symptomatic bradycardia Donepezil and metoprolol discontinued No evidence of [place] Check Echo; unable to perform yesterday due to combative behavior. Consider Cardiology consult if persistent symptomatic recurrences. (2) Pulmonary edema Code(s): J81.1 - CHRONIC PULMONARY EDEMA Comment: On Ct scan with signs of pulmonary hypertension Will get echo, patient has history of AI Will not diurese at thie time due to no obvious signs of fluid overload. (3) Elevated d-dimer Code(s): R79.89 - OTHER SPECIFIED ABNORMAL FINDINGS OF BLOOD CHEMISTRY Comment : Unknown cause, CTA chest negative for PE and LE doppler negative for DVT. (4) HTN (hypertension) Code(s): I10 - ESSENTIAL (PRIMARY) HYPERTENSION Comment: Controlled Continue decreased metoprolol, amlodipine, enalapril (5) Moderate dementia with behavioral disturbance Code(s): F03.91 - UNSPECIFIED DEMENTIA WITH BEHAVIORAL DISTURBANCE Comment: PRN haldol for agitation Safety Monitor (6) PVD (peripheral vascular disease) Code(s): I73.9 - PERIPHERAL VASCULAR DISEASE, UNSPECIFIED Comment: Asymptomatic. (7) DVT prophylaxis Comment: Heparin SubQ. (8) DNR (do not resuscitate) Status and Disposition: Inpatient for evaluation of syncope. Will likely need YENY prior to returning to [place]. Attending: Diony Lombardo
[2018-03-26] MEDS: Haloperidol INJ IV/IM* 5 MG/ML AMP IV SLOW PU PRN (19:42)
[2018-03-26] MEDS: (Melatonin [Melatonin] 10 MG) PO SCH (19:51)
[2018-03-26] MEDS ORDERED: Haloperidol INJ IV/IM* 5 MG/ML AMP IV SLOW PU ONE (20:52)
[2018-03-27] MEDS: Heparin VIAL(*) 5000 UNITS/ML VIAL (FIVE THOUSAND) SUBCUT SCH ×3 (05:13→21:44)
[2018-03-27] MEDS: Umeclidin/Vilant 62.5 MDI 62.5/25 mcg 14 INH ELLIPTA DEVICE INH SCH (07:13)
[2018-03-27] MEDS ORDERED: Albuterol HFA INHALER* 8 gm MDI INH PRN (07:43)
[2018-03-27] MEDS: Tiotropium CAP.INH* CAP.INH/18 MCG (USE ORDER SET !) INH SCH (08:11)
[2018-03-27] MEDS ORDERED: Spiriva Inhaler DEVICE* 1 EACH DEVICE INH ONE (09:00)
[2018-03-27] MEDS: Enalapril TAB* 5 MG PO SCH ×2 (09:13→09:25)
[2018-03-27] MEDS: Cholecalciferol TAB* 1000 UNITS PO SCH (09:16)
[2018-03-27] MEDS: Calcium Carbonate TAB* 1250 MG (CALCIUM 500 MG) PO SCH ×2 (09:16→21:43)
[2018-03-27] MEDS: Atorvastatin* 10 MG TAB PO SCH (09:16)
[2018-03-27] MEDS: Aspirin EC TAB* 81 MG TAB.EC PO SCH (09:16)
[2018-03-27] MEDS: amLODIPine TAB* 5 MG PO SCH (09:16)
[2018-03-27] MEDS: Metoprolol Tartrate TAB* 25 MG PO SCH ×2 (09:16→21:38)
[2018-03-27] MEDS: Memantine TAB* 10 MG PO SCH ×2 (09:23→21:37)
[2018-03-27] MEDS: CMC:OMEGA-3 FATTY ACIDS (NF) 1,000 MG CAP PO SCH (09:24)
--- NOTE | 2018-03-27 11:34 | PN ---
Subjective Date of Service: 03/27/18 Interval History: Patient in room with safety monitor. He is sleepy but agreeable with examination. He states, "I feel fine." No further bradycardic events on gambling monitor. No reported dizziness or concern for syncopal or near syncopal episodes. Tele: SR [id number] Family History: Unchanged from Admission Social History: Unchanged from Admission Past Medical History: Unchanged from Admission Objective Active Medications: Acetaminophen (Tylenol Tab*) 650 mg PO Q4H PRN PRN Reason: PAIN/FEVER Albuterol (Ventolin Hfa Inhaler*) 2 puff INH Q4H PRN PRN Reason: SHORTNESS OF BREATH Amlodipine Besylate (Norvasc Tab*) 5 mg PO DAILY [facility] Last Admin: 03/27/18 09:16 Dose: 5 mg Aspirin (Aspirin Ec Tab*) 81 mg PO DAILY [facility] Last Admin: 03/27/18 09:16 Dose: 81 mg Atorvastatin Calcium (Lipitor*) 10 mg PO DAILY [facility] Last Admin: 03/27/18 09:16 Dose: 10 mg Calcium Carbonate (Calcium Carbonate Tab*) 1,250 mg PO BID [facility] Last Admin: 03/27/18 09:16 Dose: Not Given Cholecalciferol (Vitamin D Tab*) 1,000 units PO DAILY [facility] Last Admin: 03/27/18 09:16 Dose: Not Given Enalapril Maleate (Vasotec Tab*) 10 mg PO DAILY [facility] Last Admin: 03/27/18 09:25 Dose: Not Given Fish Oil (Fish Oil (Nf)) 1,000 mg PO DAILY [facility]; Protocol Last Admin: 03/27/18 09:24 Dose: Not Given Haloperidol Lactate (Haldol Inj Iv/Im*) 5 mg IV SLOW PU Q6H PRN PRN Reason: AGITATION Last Admin: 03/26/18 19:42 Dose: 5 mg Heparin Sodium (Porcine) (Heparin Vial(*)) 5,000 units SUBCUT Q8HR [facility] Last Admin: 03/27/18 05:13 Dose: 5,000 units Loperamide HCl (Imodium Liq*) 2 mg PO DAILY PRN PRN Reason: LOOSE STOOLS Melatonin (Melatonin) 9 mg PO BEDTIME [facility] Memantine (Namenda Tab*) 10 mg PO BID [facility] Last Admin: 03/27/18 09:23 Dose: Not Given Metoprolol Tartrate (Lopressor Tab*) 25 mg PO BID [facility] Last Admin: 03/27/18 09:16 Dose: 25 mg Tiotropium [place] (Spiriva Cap.Inh*) 1 cap INH DAILY [facility] Last Admin: 03/27/18 08:11 Dose: 1 cap Vital Signs - 8 hr 03/27/18 03/27/18 03/27/18 07:51 08:00 08:13 Temperature 99.5 F Pulse Rate 105 91 Respiratory 20 16 20 Rate Blood Pressure 120/70 (mmHg) O2 Sat by Pulse 92 94 Oximetry Oxygen Devices in Use Now: None Appearance: 87 yo male, lying in bed, NAD Eyes: No Scleral Icterus, PERRLA Ears/Nose/Mouth/Throat: Clear Oropharnyx, Mucous Membranes Moist Neck: NL Appearance and Movements; NL JVP Respiratory: Symmetrical Chest Expansion and Respiratory Effort, Clear to Auscultation Cardiovascular: NL Sounds; No Murmurs; No JVD, RRR, No Edema Abdominal: NL Sounds; No Tenderness; No Distention Extremities: No Edema, No Clubbing, Cyanosis Skin: No Rash or Ulcers Neurological: - - Alert, oriented to self Lines/Tubes/Other Access: Clean, Dry and Intact Peripheral IV Nutrition: Taking PO's Result Diagrams: 03/26/18 05:31 03/26/18 05:31 Microbiology and Other Data: Microbiology 03/25/18 05:20 Nasal Screen MRSA (PCR) - Final Nasal Mrsa Detected EKG Data: ns no acute st t change Assess/Plan/Problems-Billing Assessment: Mr. Segal is 87 yr old male with a history significant for mod dementia, prostate cancer, and HTN. Patient was in his normal state of health when he had a prolonged episode of syncope with bradycardia and hypotension with an episode of diarrhea. Patient was admitted for evaluation of syncope and is stable but combative. - Patient Problems (1) Bradycardia Code(s): R00.1 - BRADYCARDIA, UNSPECIFIED Comment: No further episodes of symptomatic bradycardia Donepezil discontinued and metoprolol decreased with resolution of bradycardia. No evidence of [place] Echocardiogram shows EF 55-60% with mild and mild pulm htn. May benefit from outpatient monitoring of bradycardia. (2) Pulmonary edema Code(s): J81.1 - CHRONIC PULMONARY EDEMA Comment: On Ct scan with signs of pulmonary hypertension Will not diurese at thie time due to no obvious signs of fluid overload. (3) Elevated d-dimer Code(s): R79.89 - OTHER SPECIFIED ABNORMAL FINDINGS OF BLOOD CHEMISTRY Comment : Unknown cause, CTA chest negative for PE and LE doppler negative for DVT. (4) HTN (hypertension) Code(s): I10 - ESSENTIAL (PRIMARY) HYPERTENSION Comment: Controlled Continue decreased metoprolol, amlodipine, enalapril (5) Moderate dementia with behavioral disturbance Code(s): F03.91 - UNSPECIFIED DEMENTIA WITH BEHAVIORAL DISTURBANCE Comment: PRN haldol for agitation Safety Monitor (6) PVD (peripheral vascular disease) Code(s): I73.9 - PERIPHERAL VASCULAR DISEASE, UNSPECIFIED Comment: Asymptomatic. (7) DVT prophylaxis Comment: Heparin SubQ. (8) DNR (do not resuscitate) Status and Disposition: Inpatient for evaluation of syncope. Will likely need YENY prior to returning to [place]. Attending: Unique Chandler
[2018-03-27] MEDS: Haloperidol INJ IV/IM* 5 MG/ML AMP IV SLOW PU PRN (18:33)
[2018-03-27] MEDS: Melatonin 3 MG TAB PO SCH (21:37)
[2018-03-28] MEDS: Nystatin SUSPENSION* 100000 UNITS/ML 5 ML UDC PO SCH ×5 (03:26→23:19)
[2018-03-28] MEDS: Heparin VIAL(*) 5000 UNITS/ML VIAL (FIVE THOUSAND) SUBCUT SCH ×3 (05:45→23:19)
[2018-03-28] MEDS: Tiotropium CAP.INH* CAP.INH/18 MCG (USE ORDER SET !) INH SCH (08:23)
[2018-03-28] MEDS: Enalapril TAB* 5 MG PO SCH (08:46)
[2018-03-28] MEDS: Aspirin EC TAB* 81 MG TAB.EC PO SCH (08:47)
[2018-03-28] MEDS: Atorvastatin* 10 MG TAB PO SCH (08:48)
[2018-03-28] MEDS: Metoprolol Tartrate TAB* 25 MG PO SCH ×2 (08:49→23:17)
[2018-03-28] MEDS: Cholecalciferol TAB* 1000 UNITS PO SCH (08:50)
[2018-03-28] MEDS: CMC:OMEGA-3 FATTY ACIDS (NF) 1,000 MG CAP PO SCH (08:51)
[2018-03-28] MEDS: Calcium Carbonate TAB* 1250 MG (CALCIUM 500 MG) PO SCH ×2 (08:52→23:18)
[2018-03-28] MEDS: amLODIPine TAB* 5 MG PO SCH (08:54)
[2018-03-28] MEDS: Memantine TAB* 10 MG PO SCH ×2 (08:54→23:17)
[2018-03-28 10:50] LABS: BUN/Creatinine Ratio 33.3 (8-20); Calcium 8.8 mg/dL (8.6-10.3); EGFR Non-African American 57.5 (>60); Magnesium 2.2 mg/dL (1.9-2.7); Potassium 3.9 mmol/L (3.5-5.0)
[2018-03-28] MEDS: Acetaminophen TAB* 325 MG PO PRN ×2 (17:37→23:16)
--- NOTE | 2018-03-28 18:23 | PN ---
Subjective Date of Service: 03/28/18 Interval History: Resting in bed on assessment. Nurse present during assessment as patient needed to be reposition. Patient was pleasant and cooperative. Alert to self only. Denies pain. ROS limited due to confusion. Per RN not episodes of symptomatic bradycardia and/or hypotension Family History: Unchanged from Admission Social History: Unchanged from Admission Past Medical History: Unchanged from Admission Objective Active Medications: Acetaminophen (Tylenol Tab*) 650 mg PO Q4H PRN PRN Reason: PAIN/FEVER Last Admin: 03/28/18 17:37 Dose: 650 mg Albuterol (Ventolin Hfa Inhaler*) 2 puff INH Q4H PRN PRN Reason: SHORTNESS OF BREATH Amlodipine Besylate (Norvasc Tab*) 5 mg PO DAILY [facility] Last Admin: 03/28/18 08:54 Dose: 5 mg Aspirin (Aspirin Ec Tab*) 81 mg PO DAILY [facility] Last Admin: 03/28/18 08:47 Dose: 81 mg Atorvastatin Calcium (Lipitor*) 10 mg PO DAILY [facility] Last Admin: 03/28/18 08:48 Dose: 10 mg Calcium Carbonate (Calcium Carbonate Tab*) 1,250 mg PO BID [facility] Last Admin: 03/28/18 08:52 Dose: 1,250 mg Cholecalciferol (Vitamin D Tab*) 1,000 units PO DAILY [facility] Last Admin: 03/28/18 08:50 Dose: 1,000 units Enalapril Maleate (Vasotec Tab*) 10 mg PO DAILY [facility] Last Admin: 03/28/18 08:46 Dose: 10 mg Fish Oil (Fish Oil (Nf)) 1,000 mg PO DAILY [facility]; Protocol Last Admin: 03/28/18 08:51 Dose: 1,000 mg Heparin Sodium (Porcine) (Heparin Vial(*)) 5,000 units SUBCUT Q8HR [facility] Last Admin: 03/28/18 13:43 Dose: 5,000 units Loperamide HCl (Imodium Liq*) 2 mg PO DAILY PRN PRN Reason: LOOSE STOOLS Melatonin (Melatonin) 9 mg PO BEDTIME [facility] Last Admin: 03/27/18 21:37 Dose: 9 mg Memantine (Namenda Tab*) 10 mg PO BID [facility] Last Admin: 03/28/18 08:54 Dose: 10 mg Metoprolol Tartrate (Lopressor Tab*) 25 mg PO BID [facility] Last Admin: 03/28/18 08:49 Dose: 25 mg Nystatin (Nystatin Suspension*) 500,000 units PO QID [facility] Stop: 04/04/18 00:40 Last Admin: 03/28/18 17:33 Dose: 500,000 units Risperidone (Risperdal*) 0.5 mg PO BEDTIME [facility] Tiotropium [place] (Spiriva Cap.Inh*) 1 cap INH DAILY [facility] Last Admin: 03/28/18 08:23 Dose: 1 cap Vital Signs - 8 hr 03/28/18 03/28/18 11:44 15:54 Temperature 98.9 F Pulse Rate 76 77 Respiratory 20 Rate Blood Pressure 118/55 (mmHg) O2 Sat by Pulse 92 94 Oximetry Oxygen Devices in Use Now: None Appearance: NAD Eyes: PERRLA Ears/Nose/Mouth/Throat: Clear Oropharnyx, Mucous Membranes Moist Neck: NL Appearance and Movements; NL JVP Respiratory: Symmetrical Chest Expansion and Respiratory Effort, Clear to Auscultation Cardiovascular: NL Sounds; No Murmurs; No JVD, RRR, No Edema Abdominal: NL Sounds; No Tenderness; No Distention Lymphatic: No Cervical Adenopathy Extremities: No Edema Skin: No Rash or Ulcers - Alert to self only, - Neurological: - Nutrition: Taking PO's Result Diagrams: 03/26/18 05:31 03/28/18 09:58 Additional Lab and Data: Laboratory Results - last 24 hr 03/28/18 09:58 Sodium 141 Potassium 3.9 Chloride 108 Carbon Dioxide 24 Anion Gap 9 BUN 40 H Creatinine 1.20 H Est GFR ( Amer) 69.6 Est GFR (Non-Af Amer) 57.5 BUN/Creatinine Ratio 33.3 H Glucose 200 H Calcium 8.8 Magnesium 2.2 Microbiology and Other Data: Microbiology 03/25/18 05:20 Nasal Screen MRSA (PCR) - Final Nasal Mrsa Detected EKG Data: ns no acute st t change Assess/Plan/Problems-Billing Assessment: Mr. Segal is 87 yr old male with a history significant for mod dementia, prostate cancer, and HTN. Patient was in his normal state of health when he had a prolonged episode of syncope with bradycardia and hypotension with an episode of diarrhea. Patient was admitted for evaluation of syncope and is stable but combative. - Patient Problems (1) Bradycardia Comment: - No further episodes of symptomatic bradycardia - Donepezil discontinued and metoprolol decreased with resolution of bradycardia. - No evidence of CA - Echocardiogram shows EF 55-60% with mild and mild pulm htn. - May benefit from outpatient monitoring of bradycardia. (2) Elevated d-dimer Comment: - Unknown cause, CTA chest negative for PE and LE doppler negative for DVT. (3) Pulmonary edema Comment: - On Ct scan with signs of pulmonary hypertension - Will not diurese at thie time due to no obvious signs of fluid overload. (4) HTN (hypertension) Comment: - Controlled - Continue decreased metoprolol, amlodipine, enalapril (5) Moderate dementia with behavioral disturbance Comment: - PRN haldol for agitation discontinued today. We will try Risperidone PO. - No longer requiring safwety monitor. Bed alarm in place. - Much less combative today (6) DNR (do not resuscitate) (7) DVT prophylaxis Comment: - Heparin SubQ. Status and Disposition: Inpatient for evaluation of syncope. Will likely need YENY prior to returning to [place]. Attending: Ren Garcia
[2018-03-28] MEDS: Melatonin 3 MG TAB PO SCH (23:17)
[2018-03-29] MEDS: Heparin VIAL(*) 5000 UNITS/ML VIAL (FIVE THOUSAND) SUBCUT SCH ×3 (05:21→22:35)
[2018-03-29 06:33] LABS: BUN/Creatinine Ratio 33.6 (8-20); EGFR Non-African American 65.7 (>60); Potassium 3.7 mmol/L (3.5-5.0)
[2018-03-29] MEDS: Tiotropium CAP.INH* CAP.INH/18 MCG (USE ORDER SET !) INH SCH (07:21)
[2018-03-29] MEDS: Memantine TAB* 10 MG PO SCH ×2 (09:55→22:35)
[2018-03-29] MEDS: Aspirin EC TAB* 81 MG TAB.EC PO SCH (09:55)
[2018-03-29] MEDS: amLODIPine TAB* 5 MG PO SCH (09:55)
[2018-03-29] MEDS: Enalapril TAB* 5 MG PO SCH (09:55)
[2018-03-29] MEDS: CMC:OMEGA-3 FATTY ACIDS (NF) 1,000 MG CAP PO SCH (09:56)
[2018-03-29] MEDS: Metoprolol Tartrate TAB* 25 MG PO SCH ×2 (09:56→22:35)
[2018-03-29] MEDS: Atorvastatin* 10 MG TAB PO SCH (09:56)
[2018-03-29] MEDS: Calcium Carbonate TAB* 1250 MG (CALCIUM 500 MG) PO SCH ×2 (09:56→22:35)
[2018-03-29] MEDS: Nystatin SUSPENSION* 100000 UNITS/ML 5 ML UDC PO SCH ×4 (09:56→22:35)
[2018-03-29] MEDS: Cholecalciferol TAB* 1000 UNITS PO SCH (09:56)
--- NOTE | 2018-03-29 18:39 | PN ---
Subjective Date of Service: 03/29/18 Interval History: Resting in bed on assessment. Patient denies pain, but full ROS is limited due to patient confusion. He is alert to self. Patient is cooperative with assessment. He has had no reports of being combative. Family History: Unchanged from Admission Social History: Unchanged from Admission Past Medical History: Unchanged from Admission Objective Active Medications: Acetaminophen (Tylenol Tab*) 650 mg PO Q4H PRN PRN Reason: PAIN/FEVER Last Admin: 03/28/18 23:16 Dose: 650 mg Albuterol (Ventolin Hfa Inhaler*) 2 puff INH Q4H PRN PRN Reason: SHORTNESS OF BREATH Amlodipine Besylate (Norvasc Tab*) 5 mg PO DAILY [facility] Last Admin: 03/29/18 09:55 Dose: 5 mg Aspirin (Aspirin Ec Tab*) 81 mg PO DAILY [facility] Last Admin: 03/29/18 09:55 Dose: 81 mg Atorvastatin Calcium (Lipitor*) 10 mg PO DAILY [facility] Last Admin: 03/29/18 09:56 Dose: 10 mg Calcium Carbonate (Calcium Carbonate Tab*) 1,250 mg PO BID [facility] Last Admin: 03/29/18 09:56 Dose: 1,250 mg Cholecalciferol (Vitamin D Tab*) 1,000 units PO DAILY [facility] Last Admin: 03/29/18 09:56 Dose: 1,000 units Enalapril Maleate (Vasotec Tab*) 10 mg PO DAILY [facility] Last Admin: 03/29/18 09:55 Dose: 10 mg Fish Oil (Fish Oil (Nf)) 1,000 mg PO DAILY [facility]; Protocol Last Admin: 03/29/18 09:56 Dose: 1,000 mg Heparin Sodium (Porcine) (Heparin Vial(*)) 5,000 units SUBCUT Q8HR [facility] Last Admin: 03/29/18 13:04 Dose: 5,000 units Loperamide HCl (Imodium Liq*) 2 mg PO DAILY PRN PRN Reason: LOOSE STOOLS Melatonin (Melatonin) 9 mg PO BEDTIME [facility] Last Admin: 03/28/18 23:17 Dose: 9 mg Memantine (Namenda Tab*) 10 mg PO BID [facility] Last Admin: 03/29/18 09:55 Dose: 10 mg Metoprolol Tartrate (Lopressor Tab*) 25 mg PO BID [facility] Last Admin: 03/29/18 09:56 Dose: 25 mg Nystatin (Nystatin Suspension*) 500,000 units PO QID [facility] Stop: 04/04/18 00:40 Last Admin: 03/29/18 17:27 Dose: 500,000 units Tiotropium [place] (Spiriva Cap.Inh*) 1 cap INH DAILY [facility] Last Admin: 03/29/18 07:21 Dose: 1 cap Vital Signs - 8 hr 03/29/18 03/29/18 11:35 16:25 Temperature 99.6 F 97.8 F Pulse Rate 93 87 Respiratory 20 16 Rate Blood Pressure 118/64 109/59 (mmHg) O2 Sat by Pulse 94 94 Oximetry Oxygen Devices in Use Now: None Appearance: NAD Eyes: PERRLA Ears/Nose/Mouth/Throat: Clear Oropharnyx, Mucous Membranes Moist Neck: NL Appearance and Movements; NL JVP Respiratory: Symmetrical Chest Expansion and Respiratory Effort, Clear to Auscultation Cardiovascular: NL Sounds; No Murmurs; No JVD, RRR, No Edema Abdominal: NL Sounds; No Tenderness; No Distention Lymphatic: No Cervical Adenopathy Extremities: No Edema Skin: No Rash or Ulcers Neurological: - - Alert to self only Nutrition: Taking PO's Result Diagrams: 03/26/18 05:31 03/29/18 05:34 Additional Lab and Data: Laboratory Results - last 24 hr 03/29/18 05:34 Sodium 142 Potassium 3.7 Chloride 109 Carbon Dioxide 26 Anion Gap 7 BUN 36 H Creatinine 1.07 Est GFR ( Amer) 79.5 Est GFR (Non-Af Amer) 65.7 BUN/Creatinine Ratio 33.6 H Glucose 125 H Calcium 9.0 Microbiology and Other Data: Microbiology 03/25/18 05:20 Nasal Screen MRSA (PCR) - Final Nasal Mrsa Detected Assess/Plan/Problems-Billing Assessment: Mr. Segal is 87 yr old male with a history significant for mod dementia, prostate cancer, and HTN. Patient was in his normal state of health when he had a prolonged episode of syncope with bradycardia and hypotension with an episode of diarrhea. Patient was admitted for evaluation of syncope - Patient Problems (1) Bradycardia Comment: - No further episodes of symptomatic bradycardia - Donepezil discontinued and metoprolol decreased with resolution of bradycardia. - No evidence of [place] - Echocardiogram shows EF 55-60% with mild and mild pulm htn. - May benefit from outpatient monitoring of bradycardia. (2) Elevated d-dimer Comment: - Unknown cause, CTA chest negative for PE and LE doppler negative for DVT. (3) Pulmonary edema Comment: - On Ct scan with signs of pulmonary hypertension - Will not diurese at thie time due to no obvious signs of fluid overload. (4) HTN (hypertension) Comment: - Controlled - Continue decreased metoprolol, amlodipine, enalapril (5) Moderate dementia with behavioral disturbance Comment: - PRN haldol given due to agitation on 03/26 and 03/27 with improvement. - As patient cannot be discharged to [place] with Haldol IV we attempted Risperidone PO last evening with good effect. Will continue as same - I placed call to [place] and discussed patient's mention and they report that answering question incorrectly and only being alert to self is his baseline. - No longer requiring safety monitor. Bed alarm in place. (6) DNR (do not resuscitate) (7) DVT prophylaxis Comment: - Heparin SubQ. Status and Disposition: Inpatient for evaluation of syncope. Will likely need YENY prior to returning to [place]. Attending: Ren Garcia
[2018-03-29] MEDS: Melatonin 3 MG TAB PO SCH (22:35)
[2018-03-29] MEDS: Acetaminophen TAB* 325 MG PO PRN (22:35)
[2018-03-30] MEDS: Heparin VIAL(*) 5000 UNITS/ML VIAL (FIVE THOUSAND) SUBCUT SCH ×3 (05:04→22:13)
[2018-03-30] MEDS: Tiotropium CAP.INH* CAP.INH/18 MCG (USE ORDER SET !) INH SCH (07:07)
[2018-03-30] MEDS: Atorvastatin* 10 MG TAB PO SCH (09:23)
[2018-03-30] MEDS: Nystatin SUSPENSION* 100000 UNITS/ML 5 ML UDC PO SCH ×5 (09:24→20:18)
[2018-03-30] MEDS: Aspirin EC TAB* 81 MG TAB.EC PO SCH (09:24)
[2018-03-30] MEDS: Metoprolol Tartrate TAB* 25 MG PO SCH ×2 (09:24→20:20)
[2018-03-30] MEDS: Calcium Carbonate TAB* 1250 MG (CALCIUM 500 MG) PO SCH ×2 (09:24→20:20)
[2018-03-30] MEDS: Memantine TAB* 10 MG PO SCH ×2 (09:24→20:21)
[2018-03-30] MEDS: Enalapril TAB* 5 MG PO SCH (09:24)
[2018-03-30] MEDS: amLODIPine TAB* 5 MG PO SCH (09:24)
[2018-03-30] MEDS: CMC:OMEGA-3 FATTY ACIDS (NF) 1,000 MG CAP PO SCH (09:24)
[2018-03-30] MEDS: Cholecalciferol TAB* 1000 UNITS PO SCH (09:24)
--- NOTE | 2018-03-30 18:47 | PN ---
Subjective Date of Service: 03/30/18 Interval History: Patient sleeping on initial assessment, but woke to loud voice and respond " what now". Per nurse and hosp aide patient has been sleeping more often today. They report he woke and ate breakfast, but has been napping most of the remainder of the day. He will wake to verbal stim. Patient denies pain. Completed ROS difficult due to confusion. Family History: Unchanged from Admission Social History: Unchanged from Admission Past Medical History: Unchanged from Admission Objective Active Medications: Acetaminophen (Tylenol Tab*) 650 mg PO Q4H PRN PRN Reason: PAIN/FEVER Last Admin: 03/29/18 22:35 Dose: 650 mg Albuterol (Ventolin Hfa Inhaler*) 2 puff INH Q4H PRN PRN Reason: SHORTNESS OF BREATH Amlodipine Besylate (Norvasc Tab*) 5 mg PO DAILY [facility] Last Admin: 03/30/18 09:24 Dose: 5 mg Aspirin (Aspirin Ec Tab*) 81 mg PO DAILY [facility] Last Admin: 03/30/18 09:24 Dose: 81 mg Atorvastatin Calcium (Lipitor*) 10 mg PO DAILY [facility] Last Admin: 03/30/18 09:23 Dose: 10 mg Calcium Carbonate (Calcium Carbonate Tab*) 1,250 mg PO BID [facility] Last Admin: 03/30/18 09:24 Dose: 1,250 mg Cholecalciferol (Vitamin D Tab*) 1,000 units PO DAILY [facility] Last Admin: 03/30/18 09:24 Dose: 1,000 units Enalapril Maleate (Vasotec Tab*) 10 mg PO DAILY [facility] Last Admin: 03/30/18 09:24 Dose: 10 mg Fish Oil (Fish Oil (Nf)) 1,000 mg PO DAILY [facility]; Protocol Last Admin: 03/30/18 09:24 Dose: 1,000 mg Heparin Sodium (Porcine) (Heparin Vial(*)) 5,000 units SUBCUT Q8HR [facility] Last Admin: 03/30/18 13:28 Dose: 5,000 units Loperamide HCl (Imodium Liq*) 2 mg PO DAILY PRN PRN Reason: LOOSE STOOLS Melatonin (Melatonin) 9 mg PO BEDTIME [facility] Last Admin: 03/29/18 22:35 Dose: 9 mg Memantine (Namenda Tab*) 10 mg PO BID [facility] Last Admin: 03/30/18 09:24 Dose: 10 mg Metoprolol Tartrate (Lopressor Tab*) 25 mg PO BID [facility] Last Admin: 03/30/18 09:24 Dose: 25 mg Nystatin (Nystatin Suspension*) 500,000 units PO QID [facility] Stop: 04/04/18 00:40 Last Admin: 03/30/18 17:53 Dose: 500,000 units Risperidone (Risperdal) 0.25 mg PO BEDTIME [facility] Tiotropium [place] (Spiriva Cap.Inh*) 1 cap INH DAILY [facility] Last Admin: 03/30/18 07:07 Dose: 1 cap Vital Signs - 8 hr 03/30/18 03/30/18 11:29 15:49 Temperature 97.1 F 97.7 F Pulse Rate 77 92 Respiratory 16 16 Rate Blood Pressure 103/62 98/72 (mmHg) O2 Sat by Pulse 93 93 Oximetry Oxygen Devices in Use Now: None Appearance: NAD Eyes: PERRLA Ears/Nose/Mouth/Throat: Clear Oropharnyx, Mucous Membranes Moist Neck: NL Appearance and Movements; NL JVP Respiratory: Symmetrical Chest Expansion and Respiratory Effort, Clear to Auscultation Cardiovascular: NL Sounds; No Murmurs; No JVD, RRR, No Edema Abdominal: NL Sounds; No Tenderness; No Distention Lymphatic: No Cervical Adenopathy Extremities: No Edema Skin: No Rash or Ulcers Neurological: - - Alert to self. Will not follow commands for full neuro exam, but squeezed eye tightly and pulls away from stimuli evenly Nutrition: Taking PO's Result Diagrams: 03/26/18 05:31 03/29/18 05:34 Additional Lab and Data: Microbiology and Other Data: Microbiology 03/25/18 05:20 Nasal Screen MRSA (PCR) - Final Nasal Mrsa Detected Assess/Plan/Problems-Billing Assessment: Mr. Segal is 87 yr old male with a history significant for mod dementia, prostate cancer, and HTN. Patient was in his normal state of health when he had a prolonged episode of syncope with bradycardia and hypotension with an episode of diarrhea. Patient was admitted for evaluation of syncope - Patient Problems (1) Lethargy Comment: - Per staff patient has been sleeping more today. - No focal deficits and responds to voice - Patient previously received Haldol on 03/26 and 03/27. In addition has had Risperidone on 03/28 and 03/29. I suspected this could be contributing to lethargy. I considered stopping Risperidone but patient has had good response in regards to agitation, therefore, I have decreased the dose to 0.25 mg at bedtime. He should be monitored closely and may need to have this med discontinued (2) Bradycardia Comment: - No further episodes of symptomatic bradycardia - Donepezil discontinued and metoprolol decreased with resolution of bradycardia. - No evidence of [place] - Echocardiogram shows EF 55-60% with mild and mild pulm htn. - May benefit from outpatient monitoring of bradycardia. (3) HTN (hypertension) Comment: - Controlled - Continue decreased metoprolol, amlodipine, enalapril (4) Moderate dementia with behavioral disturbance Comment: - PRN haldol given due to agitation on 03/26 and 03/27 with improvement. - As patient cannot be discharged to [place] with Haldol IV we attempted Risperidone PO last evening with good effect. Will continue as same - I placed call to [place] and discussed patient's mention and they report that answering question incorrectly and only being alert to self is his baseline. - No longer requiring safety monitor. Bed alarm in place. (5) DVT prophylaxis Comment: - Heparin SubQ. (6) DNR (do not resuscitate) Status and Disposition: Inpatient for evaluation of syncope. Will likely need YENY prior to returning to [place].
[2018-03-30] MEDS ORDERED: Potassium Chlor TAB* 20 MEQ TAB.ER PO ONE (18:48)
[2018-03-30] MEDS ORDERED: NS 0.9% 1000 ML* 1,000 ML IV SCH (19:00)
[2018-03-30] MEDS: Melatonin 3 MG TAB PO SCH (20:19)
[2018-03-31] MEDS: Heparin VIAL(*) 5000 UNITS/ML VIAL (FIVE THOUSAND) SUBCUT SCH ×3 (05:35→21:23)
[2018-03-31 06:59] LABS: ABS Basophils 0 10^3/ul (0-0.2); ABS Eosinophils 0.2 10^3/ul (0-0.6); ABS Monocytes 1.1 10^3/ul (0-0.8); ABS Neutrophils 5.9 10^3/ul (1.5-7.7); ABS Nucleated RBC 0 10^3/ul; Eosinophil % 2.2 %; Hematocrit 36 % (42-52); Hemoglobin 11.8 g/dl (14.0-18.0); Lymphocyte % 12.5 %; Mean Corpuscular HGB Conc 33 g/dl (31-36); Mean Corpuscular Hemoglobin 30 pg (27-31); Mean Corpuscular Volume 92 fL (80-94); Mean Platelet Volume 9.2 fL (7.4-10.4); Nucleated Red Blood Cells % 0; Platelet Count 201 10^3/ul (150-450); Red Blood Count 3.88 10^6/ul (4.00-5.40); Red Cell Distribution Width 14 % (10.5-15); White Blood Count 8.3 10^3/ul (3.5-10.8)
[2018-03-31 07:15] LABS: BUN/Creatinine Ratio 34.3 (8-20); EGFR Non-African American 71.8 (>60)
[2018-03-31] MEDS: Metoprolol Tartrate TAB* 25 MG PO SCH ×2 (08:02→21:20)
[2018-03-31] MEDS: Enalapril TAB* 5 MG PO SCH (08:02)
[2018-03-31] MEDS: Aspirin EC TAB* 81 MG TAB.EC PO SCH (08:02)
[2018-03-31] MEDS: Nystatin SUSPENSION* 100000 UNITS/ML 5 ML UDC PO SCH ×4 (08:02→21:23)
[2018-03-31] MEDS: Calcium Carbonate TAB* 1250 MG (CALCIUM 500 MG) PO SCH ×2 (08:02→21:20)
[2018-03-31] MEDS: CMC:OMEGA-3 FATTY ACIDS (NF) 1,000 MG CAP PO SCH (08:02)
[2018-03-31] MEDS: Cholecalciferol TAB* 1000 UNITS PO SCH (08:02)
[2018-03-31] MEDS: Atorvastatin* 10 MG TAB PO SCH (08:02)
[2018-03-31] MEDS: amLODIPine TAB* 5 MG PO SCH (08:02)
[2018-03-31] MEDS: Memantine TAB* 10 MG PO SCH ×2 (08:02→21:23)
[2018-03-31] MEDS: Tiotropium CAP.INH* CAP.INH/18 MCG (USE ORDER SET !) INH SCH (08:15)
--- NOTE | 2018-03-31 16:00 | PN ---
Subjective Date of Service: 03/31/18 Interval History: Pt sleeping on assessment - opening eyes to my voice. He tells me to "go away" and "dont touch me" aggressively Family History: Unchanged from Admission Social History: Unchanged from Admission Past Medical History: Unchanged from Admission Objective Active Medications: Acetaminophen (Tylenol Tab*) 650 mg PO Q4H PRN PRN Reason: PAIN/FEVER Last Admin: 03/29/18 22:35 Dose: 650 mg Albuterol (Ventolin Hfa Inhaler*) 2 puff INH Q4H PRN PRN Reason: SHORTNESS OF BREATH Amlodipine Besylate (Norvasc Tab*) 5 mg PO DAILY [facility] Last Admin: 03/31/18 08:02 Dose: 5 mg Aspirin (Aspirin Ec Tab*) 81 mg PO DAILY [facility] Last Admin: 03/31/18 08:02 Dose: 81 mg Atorvastatin Calcium (Lipitor*) 10 mg PO DAILY [facility] Last Admin: 03/31/18 08:02 Dose: 10 mg Calcium Carbonate (Calcium Carbonate Tab*) 1,250 mg PO BID [facility] Last Admin: 03/31/18 08:02 Dose: 1,250 mg Cholecalciferol (Vitamin D Tab*) 1,000 units PO DAILY [facility] Last Admin: 03/31/18 08:02 Dose: 1,000 units Enalapril Maleate (Vasotec Tab*) 10 mg PO DAILY [facility] Last Admin: 03/31/18 08:02 Dose: 10 mg Fish Oil (Fish Oil (Nf)) 1,000 mg PO DAILY [facility]; Protocol Last Admin: 03/31/18 08:02 Dose: 1,000 mg Heparin Sodium (Porcine) (Heparin Vial(*)) 5,000 units SUBCUT Q8HR [facility] Last Admin: 03/31/18 14:26 Dose: 5,000 units Loperamide HCl (Imodium Liq*) 2 mg PO DAILY PRN PRN Reason: LOOSE STOOLS Melatonin (Melatonin) 9 mg PO BEDTIME [facility] Last Admin: 03/30/18 20:19 Dose: 9 mg Memantine (Namenda Tab*) 10 mg PO BID [facility] Last Admin: 03/31/18 08:02 Dose: 10 mg Metoprolol Tartrate (Lopressor Tab*) 25 mg PO BID [facility] Last Admin: 03/31/18 08:02 Dose: 25 mg Nystatin (Nystatin Suspension*) 500,000 units PO QID [facility] Stop: 04/04/18 00:40 Last Admin: 03/31/18 14:25 Dose: 500,000 units Risperidone (Risperdal) 0.25 mg PO BEDTIME [facility] Last Admin: 03/30/18 20:19 Dose: 0.25 mg Tiotropium [place] (Spiriva Cap.Inh*) 1 cap INH DAILY [facility] Last Admin: 03/31/18 08:15 Dose: Not Given Vital Signs - 8 hr 03/31/18 08:00 Respiratory 18 Rate Oxygen Devices in Use Now: None Appearance: 87 yo male laying in bed confused and aggressive. PATIENT WOULD NOT ALLOW EXAM Lines/Tubes/Other Access: Clean, Dry and Intact Peripheral IV Nutrition: Taking PO's Result Diagrams: 03/31/18 06:23 03/31/18 06:23 Additional Lab and Data: Microbiology and Other Data: Microbiology 03/25/18 05:20 Nasal Screen MRSA (PCR) - Final Nasal Mrsa Detected EKG Data: ns no acute st t change Assess/Plan/Problems-Billing Assessment: Mr. Segal is 87 yr old male with a history significant for mod dementia, prostate cancer, and HTN. Patient was in his normal state of health when he had a prolonged episode of syncope with bradycardia and hypotension with an episode of diarrhea. Patient was admitted for evaluation of syncope - Patient Problems (1) Bradycardia Comment: - No further episodes of symptomatic bradycardia - Donepezil discontinued and metoprolol decreased with resolution of bradycardia. - No evidence of [place] - Echocardiogram shows EF 55-60% with mild and mild pulm htn. - May benefit from outpatient monitoring of bradycardia. (2) Moderate dementia with behavioral disturbance Comment: - continues to be aggressive but is improving - PRN haldol given due to agitation on 03/26 and 03/27 with improvement. - As patient cannot be discharged to [place] with Haldol IV; attempting Risperidone PO which seems to have good effect. Will continue - [place] reports pt is alert to self only at baseline - No longer requiring safety monitor. Bed alarm in place. (3) Lethargy Comment: - improving - No focal deficits and responds to voice - Risperidone decreased to 0.25 mg at bedtime. Continue monitoring (4) HTN (hypertension) Comment: - Controlled - Continue decreased metoprolol, amlodipine, enalapril (5) DNR (do not resuscitate) (6) DVT prophylaxis Comment: - Heparin SubQ. Status and Disposition: Inpatient for evaluation of syncope. Will likely need YENY prior to returning to [place].
[2018-03-31] MEDS: Melatonin 3 MG TAB PO SCH (21:22)
[2018-04-01] MEDS: Heparin VIAL(*) 5000 UNITS/ML VIAL (FIVE THOUSAND) SUBCUT SCH ×3 (06:12→21:28)
[2018-04-01] MEDS: Nystatin TOP POWDER* 15 GM BTL TOPICAL SCH ×4 (06:13→21:28)
[2018-04-01] MEDS: Tiotropium CAP.INH* CAP.INH/18 MCG (USE ORDER SET !) INH SCH (07:29)
[2018-04-01] MEDS: CMC:OMEGA-3 FATTY ACIDS (NF) 1,000 MG CAP PO SCH (09:54)
[2018-04-01] MEDS: Enalapril TAB* 5 MG PO SCH (09:55)
[2018-04-01] MEDS: Calcium Carbonate TAB* 1250 MG (CALCIUM 500 MG) PO SCH ×2 (09:55→21:28)
[2018-04-01] MEDS: Metoprolol Tartrate TAB* 25 MG PO SCH ×2 (09:55→21:22)
[2018-04-01] MEDS: Memantine TAB* 10 MG PO SCH ×2 (09:55→21:22)
[2018-04-01] MEDS: amLODIPine TAB* 5 MG PO SCH (09:55)
[2018-04-01] MEDS: Atorvastatin* 10 MG TAB PO SCH (09:55)
[2018-04-01] MEDS: Cholecalciferol TAB* 1000 UNITS PO SCH (09:55)
[2018-04-01] MEDS: Aspirin EC TAB* 81 MG TAB.EC PO SCH (09:55)
[2018-04-01] MEDS: Nystatin SUSPENSION* 100000 UNITS/ML 5 ML UDC PO SCH ×4 (09:56→21:28)
--- NOTE | 2018-04-01 14:35 | PN ---
Subjective Date of Service: 04/01/18 Interval History: Pt laying in bed sleeping; awakes to voice easily. Yells "stop bothering me". Per primary nurse concerned about left hand/knuckle swelling. On assessment patient yells out in pain when fingers are extended. Continues to sleep most of the day Family History: Unchanged from Admission Social History: Unchanged from Admission Past Medical History: Unchanged from Admission Objective Active Medications: Acetaminophen (Tylenol Tab*) 650 mg PO Q4H PRN PRN Reason: PAIN/FEVER Last Admin: 03/29/18 22:35 Dose: 650 mg Albuterol (Ventolin Hfa Inhaler*) 2 puff INH Q4H PRN PRN Reason: SHORTNESS OF BREATH Amlodipine Besylate (Norvasc Tab*) 5 mg PO DAILY [facility] Last Admin: 04/01/18 09:55 Dose: 5 mg Aspirin (Aspirin Ec Tab*) 81 mg PO DAILY [facility] Last Admin: 04/01/18 09:55 Dose: 81 mg Atorvastatin Calcium (Lipitor*) 10 mg PO DAILY [facility] Last Admin: 04/01/18 09:55 Dose: 10 mg Calcium Carbonate (Calcium Carbonate Tab*) 1,250 mg PO BID [facility] Last Admin: 04/01/18 09:55 Dose: 1,250 mg Cholecalciferol (Vitamin D Tab*) 1,000 units PO DAILY [facility] Last Admin: 04/01/18 09:55 Dose: 1,000 units Enalapril Maleate (Vasotec Tab*) 10 mg PO DAILY [facility] Last Admin: 04/01/18 09:55 Dose: 10 mg Fish Oil (Fish Oil (Nf)) 1,000 mg PO DAILY [facility]; Protocol Last Admin: 04/01/18 09:54 Dose: 1,000 mg Heparin Sodium (Porcine) (Heparin Vial(*)) 5,000 units SUBCUT Q8HR [facility] Last Admin: 04/01/18 14:02 Dose: 5,000 units Loperamide HCl (Imodium Liq*) 2 mg PO DAILY PRN PRN Reason: LOOSE STOOLS Melatonin (Melatonin) 9 mg PO BEDTIME [facility] Last Admin: 03/31/18 21:22 Dose: 9 mg Memantine (Namenda Tab*) 10 mg PO BID [facility] Last Admin: 04/01/18 09:55 Dose: 10 mg Metoprolol Tartrate (Lopressor Tab*) 25 mg PO BID [facility] Last Admin: 04/01/18 09:55 Dose: 25 mg Nystatin (Nystatin Suspension*) 500,000 units PO QID [facility] Stop: 04/04/18 00:40 Last Admin: 04/01/18 14:02 Dose: 500,000 units Nystatin (Nystatin Top Powder*) 1 applic TOPICAL TID [facility] Last Admin: 04/01/18 14:03 Dose: 1 applic Risperidone (Risperdal) 0.25 mg PO BEDTIME [facility] Last Admin: 03/31/18 21:20 Dose: 0.25 mg Tiotropium [place] (Spiriva Cap.Inh*) 1 cap INH DAILY [facility] Last Admin: 04/01/18 07:29 Dose: Not Given Vital Signs - 8 hr 04/01/18 04/01/18 06:41 07:38 Temperature 98.0 F Pulse Rate 97 Respiratory 20 16 Rate Blood Pressure 135/67 (mmHg) O2 Sat by Pulse 91 Oximetry Oxygen Devices in Use Now: None Appearance: 87 yo elderly male laying in bed drowsy, awkaes to voice, confused, combative Eyes: No Scleral Icterus, PERRLA Ears/Nose/Mouth/Throat: Mucous Membranes Moist Respiratory: Symmetrical Chest Expansion and Respiratory Effort, Clear to Auscultation Cardiovascular: NL Sounds; No Murmurs; No JVD, RRR, No Edema Abdominal: NL Sounds; No Tenderness; No Distention Extremities: - - left hand 1,2 metatarsal is noted to have mild edema, mild erythema over joint. when fingers are extended pt yells out. IV placed in top of hand does not appear to have infiltrated Neurological: - - confused Lines/Tubes/Other Access: Clean, Dry and Intact Peripheral IV Result Diagrams: 03/31/18 06:23 03/31/18 06:23 Additional Lab and Data: Microbiology and Other Data: Microbiology 03/25/18 05:20 Nasal Screen MRSA (PCR) - Final Nasal Mrsa Detected EKG Data: ns no acute st t change Assess/Plan/Problems-Billing Assessment: Mr. Segal is 87 yr old male with a history significant for mod dementia, prostate cancer, and HTN. Patient was in his normal state of health when he had a prolonged episode of syncope with bradycardia and hypotension with an episode of diarrhea. Patient was admitted for evaluation of syncope - Patient Problems (1) Bradycardia Comment: - No further episodes of symptomatic bradycardia - Donepezil discontinued and metoprolol decreased with resolution of bradycardia. - No evidence of KS - Echocardiogram shows EF 55-60% with mild and mild pulm htn. (2) Moderate dementia with behavioral disturbance Comment: - continues to be aggressive but is improving since admission - PRN haldol given due to agitation on 03/26 and 03/27 with improvement. - started on Risperidone PO which seems to have good effect but may be making him too lethargic - it was already decreased to 0.25 mg QHS and continues to experience lethargy, Plan to DC tonights dose and continue to monitor. May do better on depakote but will hold off for now d/t continue drowsiness. - [place] reports pt is alert to self only at baseline - concern for increased behaviors at central - No longer requiring safety monitor. Bed alarm in place. (3) Swelling of joint of left hand Comment: - per nursing staff worse today than yesterday, in which it was only the 2nd metarsal now extended to the 3rd. Plan to obtain xray as the pt yells out when fingers are extended. If there is no fx it could be gout vs a beginning of a cellulitis. Remove IV in hand; it does not appear to be caused by IV but plan to remove. Continue to monitor closely (4) HTN (hypertension) Comment: - Controlled - Continue decreased metoprolol, amlodipine, enalapril (5) DNR (do not resuscitate) (6) DVT prophylaxis Comment: - Heparin SubQ. Status and Disposition: Inpatient for evaluation of syncope. Case management is following. Pt may need YENY prior to returning to [place]
[2018-04-01] MEDS: Melatonin 3 MG TAB PO SCH (21:22)
[2018-04-02] MEDS: Acetaminophen TAB* 325 MG PO PRN (01:04)
[2018-04-02] MEDS: Heparin VIAL(*) 5000 UNITS/ML VIAL (FIVE THOUSAND) SUBCUT SCH ×3 (04:43→21:25)
[2018-04-02] MEDS: Tiotropium CAP.INH* CAP.INH/18 MCG (USE ORDER SET !) INH SCH (07:31)
[2018-04-02 07:41] LABS: Hematocrit 34 % (42-52); Hemoglobin 11.1 g/dl (14.0-18.0); Mean Corpuscular HGB Conc 33 g/dl (31-36); Mean Corpuscular Hemoglobin 30 pg (27-31); Mean Corpuscular Volume 92 fL (80-94); Platelet Count 252 10^3/ul (150-450); Red Blood Count 3.73 10^6/ul (4.00-5.40); Red Cell Distribution Width 14 % (10.5-15); White Blood Count 13.9 10^3/ul (3.5-10.8)
[2018-04-02 07:50] LABS: BUN/Creatinine Ratio 38.5 (8-20); C Reactive Protein 230.93 mg/L (<8.01); EGFR Non-African American 67.9 (>60); Potassium 4.1 mmol/L (3.5-5.0)
[2018-04-02 08:14] LABS: ABS Basophils 0.1 10^3/ul (0-0.2); ABS Eosinophils 0 10^3/ul (0-0.6); ABS Monocytes 1.7 10^3/ul (0-0.8); ABS Neutrophils 11.1 10^3/ul (1.5-7.7); ABS Nucleated RBC 0 10^3/ul; Eosinophil % 0.1 %; Lymphocyte % 7.1 %; Nucleated Red Blood Cells % 0
[2018-04-02] MEDS: Nystatin TOP POWDER* 15 GM BTL TOPICAL SCH ×3 (08:40→21:26)
[2018-04-02 09:16] LABS: Erythrocyte Sed Rate 103 mm/Hr (0-40)
[2018-04-02] MEDS: Aspirin EC TAB* 81 MG TAB.EC PO SCH (10:27)
[2018-04-02] MEDS: Enalapril TAB* 5 MG PO SCH (10:27)
[2018-04-02] MEDS: Atorvastatin* 10 MG TAB PO SCH (10:27)
[2018-04-02] MEDS: Metoprolol Tartrate TAB* 25 MG PO SCH ×2 (10:27→21:20)
[2018-04-02] MEDS: Nystatin SUSPENSION* 100000 UNITS/ML 5 ML UDC PO SCH ×4 (10:27→21:25)
[2018-04-02] MEDS: Calcium Carbonate TAB* 1250 MG (CALCIUM 500 MG) PO SCH ×2 (10:27→21:21)
[2018-04-02] MEDS: amLODIPine TAB* 5 MG PO SCH (10:27)
[2018-04-02] MEDS: Cholecalciferol TAB* 1000 UNITS PO SCH (10:27)
[2018-04-02] MEDS: Memantine TAB* 10 MG PO SCH ×2 (10:28→21:19)
[2018-04-02] MEDS: CMC:OMEGA-3 FATTY ACIDS (NF) 1,000 MG CAP PO SCH (10:28)
[2018-04-02 14:19] LABS: Urine Appearance Cloudy; Urine Bilirubin Negative (Negative); Urine Blood Negative (Negative); Urine Color Yellow; Urine Glucose Negative (Negative); Urine Ketones Negative (Negative); Urine Nitrite Negative (Negative); Urine Protein Negative (Negative); Urine Specific Gravity 1.023 (1.010-1.030); Urine Urobilinogen Negative (Negative)
--- NOTE | 2018-04-02 17:37 | PN ---
Subjective Date of Service: 04/02/18 Interval History: More lethargic today Pain in right wrist persists having more trouble with swallowing so switched to purred diet Family History: Unchanged from Admission Social History: Unchanged from Admission Past Medical History: Unchanged from Admission Objective Active Medications: Acetaminophen (Tylenol Tab*) 650 mg PO Q4H PRN PRN Reason: PAIN/FEVER Last Admin: 04/02/18 01:04 Dose: 650 mg Albuterol (Ventolin Hfa Inhaler*) 2 puff INH Q4H PRN PRN Reason: SHORTNESS OF BREATH Amlodipine Besylate (Norvasc Tab*) 5 mg PO DAILY [facility] Last Admin: 04/02/18 10:27 Dose: 5 mg Aspirin (Aspirin Ec Tab*) 81 mg PO DAILY [facility] Last Admin: 04/02/18 10:27 Dose: 81 mg Atorvastatin Calcium (Lipitor*) 10 mg PO DAILY [facility] Last Admin: 04/02/18 10:27 Dose: 10 mg Calcium Carbonate (Calcium Carbonate Tab*) 1,250 mg PO BID [facility] Last Admin: 04/02/18 10:27 Dose: 1,250 mg Cholecalciferol (Vitamin D Tab*) 1,000 units PO DAILY [facility] Last Admin: 04/02/18 10:27 Dose: 1,000 units Enalapril Maleate (Vasotec Tab*) 10 mg PO DAILY [facility] Last Admin: 04/02/18 10:27 Dose: 10 mg Fish Oil (Fish Oil (Nf)) 1,000 mg PO DAILY [facility]; Protocol Last Admin: 04/02/18 10:28 Dose: Not Given Heparin Sodium (Porcine) (Heparin Vial(*)) 5,000 units SUBCUT Q8HR [facility] Last Admin: 04/02/18 13:34 Dose: 5,000 units Loperamide HCl (Imodium Liq*) 2 mg PO DAILY PRN PRN Reason: LOOSE STOOLS Melatonin (Melatonin) 9 mg PO BEDTIME [facility] Last Admin: 04/01/18 21:22 Dose: 9 mg Memantine (Namenda Tab*) 10 mg PO BID [facility] Last Admin: 04/02/18 10:28 Dose: 10 mg Metoprolol Tartrate (Lopressor Tab*) 25 mg PO BID [facility] Last Admin: 04/02/18 10:27 Dose: 25 mg Nystatin (Nystatin Suspension*) 500,000 units PO QID [facility] Stop: 04/04/18 00:40 Last Admin: 04/02/18 17:15 Dose: 500,000 units Nystatin (Nystatin Top Powder*) 1 applic TOPICAL TID [facility] Last Admin: 04/02/18 13:38 Dose: 1 applic Tiotropium [place] (Spiriva Cap.Inh*) 1 cap INH DAILY [facility] Last Admin: 04/02/18 07:31 Dose: 1 cap Vital Signs - 8 hr 04/02/18 11:52 Temperature 99.3 F Pulse Rate 77 Respiratory 17 Rate Blood Pressure 105/56 (mmHg) O2 Sat by Pulse 93 Oximetry Oxygen Devices in Use Now: None Appearance: seems sleepy but awake, NAD Eyes: No Scleral Icterus, PERRLA Ears/Nose/Mouth/Throat: - - dry MM Neck: NL Appearance and Movements; NL JVP, Trachea Midline Respiratory: Symmetrical Chest Expansion and Respiratory Effort, Clear to Auscultation Cardiovascular: RRR Abdominal: NL Sounds; No Tenderness; No Distention, No Hepatosplenomegaly Extremities: - - lateral right wrist painful to palpation with minimal swelling Skin: No Rash or Ulcers Neurological: - - AOx1 to name Result Diagrams: 04/02/18 07:22 04/02/18 07:22 Additional Lab and Data: Microbiology and Other Data: Microbiology 03/25/18 05:20 Nasal Screen MRSA (PCR) - Final Nasal Mrsa Detected EKG Data: ns no acute st t change Assess/Plan/Problems-Billing Assessment: Mr. Segal is 87 yr old male with a history significant for mod dementia, prostate cancer, and HTN. Patient was in his normal state of health when he had a prolonged episode of syncope with bradycardia and hypotension with an episode of diarrhea. Patient was admitted for evaluation of syncope - Patient Problems (1) Fever Comment: 101.4 overnight. Resolved with tylenol Urine and CXR wnl Blood cultures pending Right wrist is only localizing symptom While he has minimal swelling over the left hand there is an IV in the hand and it is not painful Low threshhold for abx if there is any change in clinical status (2) Bradycardia Comment: - No further episodes of symptomatic bradycardia - Donepezil discontinued and metoprolol decreased with resolution of bradycardia. - No evidence of ID - Echocardiogram shows EF 55-60% with mild and mild pulm htn. (3) Swelling of joint of left hand Comment: Continue to monitor closely (4) HTN (hypertension) Comment: - Controlled - Continue decreased metoprolol, amlodipine, enalapril (5) Moderate dementia with behavioral disturbance Comment: no continued aggression Last PRN haldol given due to agitation on 03/26 and 03/27 - started on Risperidone PO trialed but increased drowsiness and now discontinued. - [place] reports pt is alert to self only at baseline (6) DVT prophylaxis Comment: - Heparin SubQ. Status and Disposition: . Case management is following. Pt may need YENY prior to returning to [place]
[2018-04-02] MEDS: Melatonin 3 MG TAB PO SCH (21:21)
[2018-04-03] MEDS ORDERED: NS 0.9% 250 ML* 250 ML IV ONE (02:14)
[2018-04-03] MEDS: NS 0.9% 1000 ML* 1,000 ML IV SCH ×2 (02:51→12:42)
[2018-04-03] MEDS: Heparin VIAL(*) 5000 UNITS/ML VIAL (FIVE THOUSAND) SUBCUT SCH ×3 (05:17→20:54)
[2018-04-03] MEDS: Acetaminophen TAB* 325 MG PO PRN (05:17)
[2018-04-03 06:06] LABS: ABS Basophils 0.1 10^3/ul (0-0.2); ABS Eosinophils 0.1 10^3/ul (0-0.6); ABS Lymphocytes 1.5 10^3/ul (1.0-4.8); ABS Monocytes 1.1 10^3/ul (0-0.8); ABS Neutrophils 9.1 10^3/ul (1.5-7.7); ABS Nucleated RBC 0 10^3/ul; Eosinophil % 0.9 %; Hematocrit 34 % (42-52); Hemoglobin 10.9 g/dl (14.0-18.0); Lymphocyte % 12.5 %; Mean Corpuscular HGB Conc 33 g/dl (31-36); Mean Corpuscular Hemoglobin 30 pg (27-31); Mean Corpuscular Volume 92 fL (80-94); Mean Platelet Volume 8.8 fL (7.4-10.4); Nucleated Red Blood Cells % 0; Platelet Count 283 10^3/ul (150-450); Red Blood Count 3.63 10^6/ul (4.00-5.40); Red Cell Distribution Width 15 % (10.5-15); White Blood Count 11.9 10^3/ul (3.5-10.8)
[2018-04-03 06:28] LABS: BUN/Creatinine Ratio 46.8 (8-20); Calcium 9.1 mg/dL (8.6-10.3); Potassium 4.3 mmol/L (3.5-5.0)
[2018-04-03] MEDS: Tiotropium CAP.INH* CAP.INH/18 MCG (USE ORDER SET !) INH SCH (07:25)
[2018-04-03] MEDS: Atorvastatin* 10 MG TAB PO SCH (10:38)
[2018-04-03] MEDS: Cholecalciferol TAB* 1000 UNITS PO SCH (10:39)
[2018-04-03] MEDS: Aspirin EC TAB* 81 MG TAB.EC PO SCH (10:39)
[2018-04-03] MEDS: Metoprolol Tartrate TAB* 25 MG PO SCH ×2 (10:39→20:50)
[2018-04-03] MEDS: Calcium Carbonate TAB* 1250 MG (CALCIUM 500 MG) PO SCH ×2 (10:39→20:48)
[2018-04-03] MEDS: Nystatin SUSPENSION* 100000 UNITS/ML 5 ML UDC PO SCH ×4 (10:39→20:53)
[2018-04-03] MEDS: amLODIPine TAB* 5 MG PO SCH (10:39)
[2018-04-03] MEDS: Memantine TAB* 10 MG PO SCH ×2 (10:39→20:51)
[2018-04-03] MEDS: CMC:OMEGA-3 FATTY ACIDS (NF) 1,000 MG CAP PO SCH (10:40)
[2018-04-03] MEDS: Nystatin TOP POWDER* 15 GM BTL TOPICAL SCH ×3 (10:40→20:53)
--- NOTE | 2018-04-03 10:55 | PN ---
Subjective Date of Service: 04/03/18 Interval History: Pt s very disoriented C/o no pain , but r wrist very tender and pt refuses to flex it and resists passive ROM on it. As per d/w with Pt's nurse pot appears much more awake today. started on IVF last night Family History: Unchanged from Admission Social History: Unchanged from Admission Past Medical History: Unchanged from Admission Objective Active Medications: Acetaminophen (Tylenol Tab*) 650 mg PO Q4H PRN PRN Reason: PAIN/FEVER Last Admin: 04/03/18 05:17 Dose: 650 mg Albuterol (Ventolin Hfa Inhaler*) 2 puff INH Q4H PRN PRN Reason: SHORTNESS OF BREATH Amlodipine Besylate (Norvasc Tab*) 5 mg PO DAILY [facility] Last Admin: 04/03/18 10:39 Dose: 5 mg Aspirin (Aspirin Ec Tab*) 81 mg PO DAILY [facility] Last Admin: 04/03/18 10:39 Dose: 81 mg Atorvastatin Calcium (Lipitor*) 10 mg PO DAILY [facility] Last Admin: 04/03/18 10:38 Dose: 10 mg Calcium Carbonate (Calcium Carbonate Tab*) 1,250 mg PO BID [facility] Last Admin: 04/03/18 10:39 Dose: 1,250 mg Cholecalciferol (Vitamin D Tab*) 1,000 units PO DAILY [facility] Last Admin: 04/03/18 10:39 Dose: 1,000 units Fish Oil (Fish Oil (Nf)) 1,000 mg PO DAILY [facility]; Protocol Last Admin: 04/03/18 10:40 Dose: Not Given Heparin Sodium (Porcine) (Heparin Vial(*)) 5,000 units SUBCUT Q8HR [facility] Last Admin: 04/03/18 05:17 Dose: 5,000 units Sodium Chloride (Ns 0.9% 1000 Ml*) 1,000 mls @ 100 mls/hr IV PER RATE [facility] Last Admin: 04/03/18 02:51 Dose: 100 mls/hr Loperamide HCl (Imodium Liq*) 2 mg PO DAILY PRN PRN Reason: LOOSE STOOLS Melatonin (Melatonin) 9 mg PO BEDTIME [facility] Last Admin: 04/02/18 21:21 Dose: 9 mg Memantine (Namenda Tab*) 10 mg PO BID [facility] Last Admin: 04/03/18 10:39 Dose: 10 mg Metoprolol Tartrate (Lopressor Tab*) 25 mg PO BID [facility] Last Admin: 04/03/18 10:39 Dose: 25 mg Nystatin (Nystatin Suspension*) 500,000 units PO QID [facility] Stop: 04/04/18 00:40 Last Admin: 04/03/18 10:39 Dose: 500,000 units Nystatin (Nystatin Top Powder*) 1 applic TOPICAL TID [facility] Last Admin: 04/03/18 10:40 Dose: 1 applic Tiotropium [place] (Spiriva Cap.Inh*) 1 cap INH DAILY [facility] Last Admin: 04/03/18 07:25 Dose: Not Given Vital Signs - 8 hr 04/03/18 04/03/18 03:27 07:43 Temperature 98.0 F 97.6 F Pulse Rate 96 90 Respiratory 18 20 Rate Blood Pressure 118/74 117/75 (mmHg) O2 Sat by Pulse 95 93 Oximetry Oxygen Devices in Use Now: None Appearance: 87 yo m in nAD, oriented to self only, unable to follow commands Eyes: No Scleral Icterus, PERRLA Ears/Nose/Mouth/Throat: NL Teeth, Lips, Gums, Mucous Membranes Moist Neck: NL Appearance and Movements; NL JVP, Trachea Midline Respiratory: Symmetrical Chest Expansion and Respiratory Effort, - - crackles at b/l basees Cardiovascular: NL Sounds; No Murmurs; No JVD, RRR Abdominal: NL Sounds; No Tenderness; No Distention, No Hepatosplenomegaly Lymphatic: No Cervical Adenopathy Extremities: No Clubbing, Cyanosis, - - R wist with mid edema and erythema, tender to palpation and on passive ROM Skin: No Nodules or Sclerosis, - - mild erythema r wrist Neurological: NL Muscle Strength and Tone Result Diagrams: 04/03/18 05:44 04/03/18 05:44 Additional Lab and Data: Microbiology and Other Data: Microbiology 03/25/18 05:20 Nasal Screen MRSA (PCR) - Final Nasal Mrsa Detected EKG Data: ns no acute st t change Assess/Plan/Problems-Billing Assessment: Mr. Segal is 87 yr old male with a history significant for mod dementia, prostate cancer, and HTN. Patient was in his normal state of health when he had a prolonged episode of syncope with bradycardia and hypotension with an episode of diarrhea. Patient was admitted for evaluation of syncope - Patient Problems (1) Fever Comment: 101.4 overnight 04/02/18. Resolved with tylenol Urine and CXR wnl Blood cultures pending Right wrist is only localizing symptom While he has minimal swelling over the r hand, ROM is limited. will consult ortho and ID. wrist Xray and uric acid level pending ESR>200 concerning, but WBC are lower on no antibiotics (2) Bradycardia Comment: - No further episodes of symptomatic bradycardia - Donepezil discontinued and metoprolol decreased with resolution of bradycardia. - No evidence of CA - Echocardiogram shows EF 55-60% with mild and mild pulm htn. (3) Elevated d-dimer Current Visit: Yes Comment: - Unknown cause, CTA chest negative for PE and LE doppler negative for DVT. (4) Lethargy Comment: - improving -likley due to prerenal state, got sedated on Risperdal, now hypernatremic. started on IVF on 04/03/18 AM, will recheck Na level today at noon (5) Pulmonary edema Comment: - On Ct scan with signs of pulmonary hypertension - Will not diurese at thie time due to no obvious signs of fluid overload. (6) HTN (hypertension) Comment: - Controlled - Continue decreased metoprolol, enalapril -d/c Norvasc foe SBP in low 100's (7) Moderate dementia with behavioral disturbance Comment: no continued aggression Last PRN haldol given due to agitation on 03/26 and 03/27 - started on Risperidone PO trialed but increased drowsiness and now discontinued. - [place] reports pt is alert to self only at baseline (8) DVT prophylaxis Comment: - Heparin SubQ. Status and Disposition: . Case management is following. Pt may need YENY prior to returning to [place]
[2018-04-03 13:32] LABS: BUN/Creatinine Ratio 45.5 (8-20); Calcium 9.3 mg/dL (8.6-10.3); EGFR Non-African American 63.6 (>60); Potassium 4.4 mmol/L (3.5-5.0); Uric Acid 7.1 mg/dL (4.4-7.6)
--- NOTE | 2018-04-03 14:08 | CONS ---
CONSULTATION REPORT: DATE OF CONSULT: 04/03/18 REQUESTING PHYSICIAN: Dr. Harper. CONSULTING SERVICE: Infectious Disease. REASON FOR CONSULT: Right wrist pain and inflammation. IMPRESSION: 1. Right wrist pain, tenderness, and warmth and erythema on exam. No fracture on x-ray. Differential diagnosis in an elderly man who has been in the hospital for a few days, I think pseudogout is high on the list followed by gout , less likely septic arthritis, though that is still a possibility. There is a little bit more lateral erythema, so possible that it is a tenosynovitis versus cellulitis, again I think, less likely. 2. Dementia. 3. Syncope. RECOMMENDATIONS: Agree with holding antibiotics and following his wrist exam, Orthopedics is going to see him today. His white count is down and his fever has resolved without antibiotics. Consideration would be aspiration and if there are crystals or at least not an infection, he could have a corticosteroid injection. HISTORY OF PRESENT ILLNESS: This is an 87-year-old man in the hospital for a few days after an episode of syncope. Over the last couple of days, he has had some right wrist pain and tenderness. He cannot provide any history of this illness given his baseline mental status. Those details are obtained instead from discussion with Dr. Harper or review of the medical record. Over the last couple of days, he has had increasing pain, redness, right wrist. He had had a fever 2 nights ago, none since. He had a white count on 04/02/18 of 13, it is down to an 11 today. CRP yesterday was 230. He was admitted here with syncope, happened at [facility]. He has had cardiac evaluation, which has been unrevealing. He had a wrist x-ray today, the final report is pending. By my read, there is no fracture. PAST MEDICAL HISTORY: 1. Dementia. 2. Hypertension. 3. Hyperlipidemia. 4. Peripheral vascular disease. MEDICATIONS: 1. Tylenol. 2. Albuterol. 3. Aspirin. 4. Lipitor. 5. Calcium. 6. Cholecalciferol. 7. Heparin subcutaneous injection. 8. Loperamide as needed. 9. Melatonin. 10. Memantine. 11. Metoprolol. 12. Nystatin topical. 13. Spiriva. ALLERGIES: No known drug allergies. FAMILY HISTORY: Unobtainable. SOCIAL HISTORY: Lives at [facility]. REVIEW OF SYSTEMS: Unobtainable. PHYSICAL EXAM: Vital Signs: Temperature is 36.4, heart rate 90, respiratory rate 20, blood pressure 117/75, oxygen saturation 93% on room air. In general, he is awake, not in distress. Neurologic: He is oriented x1, answers some questions, does not follow commands. HEENT: There is no conjunctival hemorrhage. Oropharynx without lesions. Neck is supple, without mass. Heart is regular rate and rhythm, without murmurs, rubs, or gallops. Lungs are clear to auscultation bilaterally. Abdomen: Soft, nontender, nondistended. Bowel sounds present. Skin: There is no rash or splinter hemorrhage. Musculoskeletal: There is no spine tenderness to palpation. There is right distal forearm edema, mild erythema, warmth, tenderness about the wrist joint with pain with flexion and extension of the wrist. No other joint synovitis. DIAGNOSTIC STUDIES/LAB DATA: White blood cell count 11, hemoglobin 10, platelets 283, creatinine is 1.1. Please see impressions and recommendations outlined above, which I discussed with Dr. Harper. Thank you for asking me to see Mr. Segal in consultation. [id number]/[facility] #: [id number] MTD[facility]
[2018-04-03] MEDS ORDERED: Magnesium Hydroxide LIQ* 30 ML UDC PO ONE (15:37)
[2018-04-03] MEDS ORDERED: NS 0.45% 1000 ML BAG* 1,000 ML IV SCH (16:00)
--- NOTE | 2018-04-03 19:34 | CONS ---
CC: Dr. Lyon CONSULTATION REPORT: DATE OF CONSULT: CHIEF COMPLAINT: Right wrist pain. HISTORY OF PRESENT ILLNESS: Yovanny is an 87-year-old man with dementia, who was admitted to the [facility] several days ago. He has developed swelling and pain in his right wrist and I was asked to con jen for that. There is concern because he has an elevated sed rate and CRP as well and was febrile, but now his fever has gone and he has not received any antibiotics. PAST MEDICAL HISTORY: He has a past medical history significant for dementia. He is not able to pro vide any history. PHYSICAL EXAM: On physical exam, he is an 87-year-old man in minimal distress at rest. On exam of h is right wrist, there is a mild degree of erythema on the ulnar aspect of the wrist. He does not hav e a significant effusion, but does have tenderness at his radiocarpal joint. He can make a fist and extend his fingers. His neurovascular function is intact as far as I can tell. There is not any obvi ous fluid collection. 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 IMPRESSION: Right wrist pain and swelling, possibly a flare of arthritis or pseudogout. PLAN: I do not feel as though there is much fluid to aspirate at this point and he is improving a li ttle bit with oral medication. He is no longer febrile, so I recommend observation for now and anti- inflammatory medication. If this does not improve the situation over the next couple of days, I will see him in followup and aspirate and/or inject his wrist with cortisone. [id number] #: [id number]
[2018-04-03] MEDS: Docusate CAP* 100 MG PO SCH (20:43)
[2018-04-03] MEDS: Melatonin 3 MG TAB PO SCH (20:49)
[2018-04-03] MEDS: Senna TAB PO SCH (20:52)
[2018-04-04] MEDS: Heparin VIAL(*) 5000 UNITS/ML VIAL (FIVE THOUSAND) SUBCUT SCH ×3 (05:56→23:18)
[2018-04-04 06:05] LABS: ABS Basophils 0.1 10^3/ul (0-0.2); ABS Eosinophils 0.3 10^3/ul (0-0.6); ABS Lymphocytes 1.4 10^3/ul (1.0-4.8); ABS Monocytes 0.8 10^3/ul (0-0.8); ABS Neutrophils 6.4 10^3/ul (1.5-7.7); ABS Nucleated RBC 0 10^3/ul; Eosinophil % 3.6 %; Hematocrit 32 % (42-52); Hemoglobin 10.2 g/dl (14.0-18.0); Lymphocyte % 15.2 %; Mean Corpuscular HGB Conc 32 g/dl (31-36); Mean Corpuscular Hemoglobin 30 pg (27-31); Mean Corpuscular Volume 93 fL (80-94); Mean Platelet Volume 9.3 fL (7.4-10.4); Nucleated Red Blood Cells % 0; Platelet Count 285 10^3/ul (150-450); Red Blood Count 3.38 10^6/ul (4.00-5.40); Red Cell Distribution Width 15 % (10.5-15)
[2018-04-04 06:24] LABS: BUN/Creatinine Ratio 51.6 (8-20); C Reactive Protein 158.19 mg/L (<8.01); Calcium 8.7 mg/dL (8.6-10.3); EGFR Non-African American 75.3 (>60); Potassium 4.1 mmol/L (3.5-5.0)
[2018-04-04] MEDS: Tiotropium CAP.INH* CAP.INH/18 MCG (USE ORDER SET !) INH SCH (07:52)
[2018-04-04] MEDS: Memantine TAB* 10 MG PO SCH ×2 (08:15→23:16)
[2018-04-04] MEDS: Cholecalciferol TAB* 1000 UNITS PO SCH (08:15)
[2018-04-04] MEDS: Docusate CAP* 100 MG PO SCH ×2 (08:15→23:09)
[2018-04-04] MEDS: Aspirin EC TAB* 81 MG TAB.EC PO SCH (08:15)
[2018-04-04] MEDS: Calcium Carbonate TAB* 1250 MG (CALCIUM 500 MG) PO SCH ×2 (08:15→23:17)
[2018-04-04] MEDS: CMC:OMEGA-3 FATTY ACIDS (NF) 1,000 MG CAP PO SCH (08:15)
[2018-04-04] MEDS: Atorvastatin* 10 MG TAB PO SCH (08:16)
[2018-04-04] MEDS: Nystatin TOP POWDER* 15 GM BTL TOPICAL SCH ×3 (08:21→23:18)
[2018-04-04] MEDS: Metoprolol Tartrate TAB* 25 MG PO SCH ×2 (08:21→23:16)
--- NOTE | 2018-04-04 09:45 | PN ---
Subjective Date of Service: 04/04/18 Interval History: Afebrile in the past 24H. Denies pain, but very poor historian due to dementia. Pulled IV last night, more awake and verbal this aM Family History: Unchanged from Admission Social History: Unchanged from Admission Past Medical History: Unchanged from Admission Objective Active Medications: Acetaminophen (Tylenol Tab*) 650 mg PO Q4H PRN PRN Reason: PAIN/FEVER Last Admin: 04/03/18 05:17 Dose: 650 mg Albuterol (Ventolin Hfa Inhaler*) 2 puff INH Q4H PRN PRN Reason: SHORTNESS OF BREATH Aspirin (Aspirin Ec Tab*) 81 mg PO DAILY [facility] Last Admin: 04/04/18 08:15 Dose: 81 mg Atorvastatin Calcium (Lipitor*) 10 mg PO DAILY [facility] Last Admin: 04/04/18 08:16 Dose: 10 mg Calcium Carbonate (Calcium Carbonate Tab*) 1,250 mg PO BID [facility] Last Admin: 04/04/18 08:15 Dose: 1,250 mg Cholecalciferol (Vitamin D Tab*) 1,000 units PO DAILY [facility] Last Admin: 04/04/18 08:15 Dose: 1,000 units Docusate Sodium (Colace Cap*) 100 mg PO BID [facility] Last Admin: 04/04/18 08:15 Dose: 100 mg Fish Oil (Fish Oil (Nf)) 1,000 mg PO DAILY [facility]; Protocol Last Admin: 04/04/18 08:15 Dose: 1,000 mg Heparin Sodium (Porcine) (Heparin Vial(*)) 5,000 units SUBCUT Q8HR [facility] Last Admin: 04/04/18 05:56 Dose: 5,000 units Loperamide HCl (Imodium Liq*) 2 mg PO DAILY PRN PRN Reason: LOOSE STOOLS Melatonin (Melatonin) 9 mg PO BEDTIME [facility] Last Admin: 04/03/18 20:49 Dose: 9 mg Memantine (Namenda Tab*) 10 mg PO BID [facility] Last Admin: 04/04/18 08:15 Dose: 10 mg Metoprolol Tartrate (Lopressor Tab*) 25 mg PO BID [facility] Last Admin: 04/04/18 08:21 Dose: Not Given Nystatin (Nystatin Top Powder*) 1 applic TOPICAL TID [facility] Last Admin: 04/04/18 08:21 Dose: 1 applic Senna (Senokot Tab*) 2 tab PO BEDTIME [facility] Last Admin: 04/03/18 20:52 Dose: 2 tab Tiotropium [place] (Spiriva Cap.Inh*) 1 cap INH DAILY [facility] Last Admin: 04/04/18 07:52 Dose: Not Given Vital Signs - 8 hr 04/04/18 04/04/18 04/04/18 04:12 07:30 08:00 Temperature 98.5 F 98.4 F Pulse Rate 93 43 Respiratory 18 18 18 Rate Blood Pressure 134/74 119/61 (mmHg) O2 Sat by Pulse 94 94 Oximetry 04/04/18 08:12 Temperature Pulse Rate 64 Respiratory Rate Blood Pressure (mmHg) O2 Sat by Pulse Oximetry Oxygen Devices in Use Now: None Appearance: 87 yo M in nAD, oriented to self onlly Eyes: No Scleral Icterus, PERRLA Ears/Nose/Mouth/Throat: NL Teeth, Lips, Gums, Mucous Membranes Moist Neck: NL Appearance and Movements; NL JVP, Trachea Midline Respiratory: Symmetrical Chest Expansion and Respiratory Effort, - - faint bibasiliar crackles Cardiovascular: NL Sounds; No Murmurs; No JVD Abdominal: NL Sounds; No Tenderness; No Distention Lymphatic: No Cervical Adenopathy Extremities: No Clubbing, Cyanosis, - - R wrist edema improving, still refuses to flex wrist Skin: No Nodules or Sclerosis Neurological: NL Muscle Strength and Tone Result Diagrams: 04/04/18 05:20 04/04/18 05:20 Additional Lab and Data: Microbiology and Other Data: Microbiology 03/25/18 05:20 Nasal Screen MRSA (PCR) - Final Nasal Mrsa Detected EKG Data: ns no acute st t change Assess/Plan/Problems-Billing Assessment: Mr. Segal is 87 yr old male with a history significant for mod dementia, prostate cancer, and HTN. Patient was in his normal state of health when he had a prolonged episode of syncope with bradycardia and hypotension with an episode of diarrhea. Patient was admitted for evaluation of syncope - Patient Problems (1) Fever Comment: temp 101.4 overnight 04/02/18. Resolved with tylenol , leukocytosis resolved Urine and CXR wnl Blood cultures neg Right wrist is only localizing symptom . appreciate ID and ortho consults. Suspect pseudogout. will try KATINA NSAIDS CRP>200 concerning, but today improved to 150. (2) Bradycardia Comment: - No further episodes of symptomatic bradycardia - Donepezil discontinued and metoprolol decreased with resolution of bradycardia. - No evidence of [place] - Echocardiogram shows EF 55-60% with mild and mild pulm htn. (3) Elevated d-dimer Comment: - Unknown cause, CTA chest negative for PE and LE doppler negative for DVT. (4) Lethargy Comment: - improving -likley due to prerenal state, got sedated on Risperdal, then prerenal and hypernatremic. started on IVF on 04/03/18 AM now resolved. (5) Pulmonary edema Comment: - On Ct scan at admission with signs of pulmonary hypertension - Will not diurese due to no obvious signs of fluid overload. (6) HTN (hypertension) Comment: - Controlled - Continue decreased metoprolol, enalapril -d/c'd Norvasc for SBP in low 100's (7) Moderate dementia with behavioral disturbance Comment: no continued aggression Last PRN haldol given due to agitation on 03/26 and 03/27 - started on Risperidone PO trialed but increased drowsiness and now discontinued. - [place] reports pt is alert to self only at baseline (8) DVT prophylaxis Comment: - Heparin SubQ. Status and Disposition: . Case management is following. Pt may need YENY prior to returning to [place]
[2018-04-04] MEDS: Naproxen TAB* 250 MG PO SCH ×2 (12:33→23:13)
--- NOTE | 2018-04-04 13:17 | PN ---
Progress Note - Progress Note Date of Service: 04/04/18 SOAP: Subjective: []Patient seen and examined at bedside. He is more verbal today. Denies wrist pain. Objective: []General: NAD RUE: Erythema of the ulnar aspect of the wrist is decreased from previous, there is no tenderness to palpation of the wrist. No obvious effusion. Able to flex, extend, ulnar and radial deviate without pain Assessment: []Likely pseudogout, unlikely septic wrist. Plan: []CRP and WBC trending down. Afebrile. Continued observation, antiinflammatories, no need for additional orthopedic intervention at this time. Laboratory Last Values WBC 9.0 10^3/ul (3.5-10.8) 04/04/18 05:20 RBC 3.38 10^6/ul (4.00-5.40) L 04/04/18 05:20 Hgb 10.2 g/dl (14.0-18.0) L 04/04/18 05:20 Hct 32 % (42-52) L 04/04/18 05:20 MCV 93 fL (80-94) 04/04/18 05:20 MCH 30 pg (27-31) 04/04/18 05:20 MCHC 32 g/dl (31-36) 04/04/18 05:20 RDW 15 % (10.5-15) 04/04/18 05:20 Plt Count 285 10^3/ul (150-450) 04/04/18 05:20 MPV 9.3 fL (7.4-10.4) 04/04/18 05:20 Neut % (Auto) 70.8 % 04/04/18 05:20 Lymph % (Auto) 15.2 % 04/04/18 05:20 [place] % (Auto) 9.3 % 04/04/18 05:20 Eos % (Auto) 3.6 % 04/04/18 05:20 Baso % (Auto) 1.1 % 04/04/18 05:20 Absolute Neuts (auto) 6.4 10^3/ul (1.5-7.7) 04/04/18 05:20 Absolute Lymphs (auto) 1.4 10^3/ul (1.0-4.8) 04/04/18 05:20 Absolute Monos (auto) 0.8 10^3/ul (0-0.8) 04/04/18 05:20 Absolute Eos (auto) 0.3 10^3/ul (0-0.6) 04/04/18 05:20 Absolute Basos (auto) 0.1 10^3/ul (0-0.2) 04/04/18 05:20 Absolute Nucleated RBC 0 10^3/ul 04/04/18 05:20 Nucleated RBC % 0 04/04/18 05:20 ESR 103 mm/Hr (0-40) H 04/02/18 07:22 INR (Anticoag Therapy) 0.98 (0.77-1.02) 03/24/18 19:41 APTT 25.6 seconds (26.0-36.3) L 03/24/18 19:41 D-Dimer, Quantitative 945 ng/mL (Less Than 230) H 03/25/18 05:18 Sodium 144 mmol/L (135-145) 04/04/18 05:20 Potassium 4.1 mmol/L (3.5-5.0) 04/04/18 05:20 Chloride 113 mmol/L (101-111) H 04/04/18 05:20 Carbon Dioxide 26 mmol/L (22-32) 04/04/18 05:20 Anion Gap 5 mmol/L (2-11) 04/04/18 05:20 BUN 49 mg/dL (6-24) H 04/04/18 05:20 Creatinine 0.95 mg/dL (0.67-1.17) 04/04/18 05:20 Est GFR ( Amer) 91.2 (>60) 04/04/18 05:20 Est GFR (Non-Af Amer) 75.3 (>60) 04/04/18 05:20 BUN/Creatinine Ratio 51.6 (8-20) H 04/04/18 05:20 Glucose 133 mg/dL (70-100) H 04/04/18 05:20 POC Glucose (mg/dL) 141 mg/dL (70-100) H 03/24/18 18:55 Lactic Acid 1.0 mmol/L (0.5-2.0) 03/24/18 19:40 Uric Acid 7.1 mg/dL (4.4-7.6) 04/03/18 12:59 Calcium 8.7 mg/dL (8.6-10.3) 04/04/18 05:20 Magnesium 2.2 mg/dL (1.9-2.7) 03/28/18 09:58 Total Bilirubin 0.40 mg/dL (0.2-1.0) 03/24/18 19:40 AST 25 U/L (13-39) 03/24/18 19:40 ALT 24 U/L (7-52) 03/24/18 19:40 Alkaline Phosphatase 61 U/L (34-104) 03/24/18 19:40 Total Creatine Kinase 51 U/L (10-223) 03/24/18 19:40 CK-MB (CK-2) 3.0 ng/mL (0.6-6.3) 03/24/18 19:40 Troponin I 0.01 ng/mL (<0.04) 03/25/18 05:13 C-Reactive Protein 158.19 mg/L (<8.01) H 04/04/18 05:20 B-Natriuretic Peptide 112 pg/mL (<=100) H 03/24/18 19:40 Total Protein 6.4 g/dL (6.4-8.9) 03/24/18 19:40 Albumin 3.1 g/dL (3.2-5.2) L 03/24/18 19:40 Globulin 3.3 g/dL (2-4) 03/24/18 19:40 Albumin/Globulin Ratio 0.9 (1-3) L 03/24/18 19:40 Triglycerides 94 mg/dL 03/25/18 05:13 Cholesterol 122 mg/dL 03/25/18 05:13 LDL Cholesterol 56 mg/dL 03/25/18 05:13 HDL Cholesterol 47.2 mg/dL 03/25/18 05:13 TSH 0.92 mcIU/mL (0.34-5.60) 03/25/18 05:13 Thyroxine (T4) 5.47 g/dL (6.09-12.23) L 03/24/18 19:40 Urine Color Yellow 04/02/18 14:00 Urine Appearance Cloudy 04/02/18 14:00 Urine pH 5.0 (5-9) 04/02/18 14:00 Ur Specific [place] 1.023 (1.010-1.030) 04/02/18 14:00 Urine Protein Negative (Negative) 04/02/18 14:00 Urine Ketones Negative (Negative) 04/02/18 14:00 Urine Blood Negative (Negative) 04/02/18 14:00 Urine Nitrate Negative (Negative) 04/02/18 14:00 Urine Bilirubin Negative (Negative) 04/02/18 14:00 Urine Urobilinogen Negative (Negative) 04/02/18 14:00 Ur Leukocyte Esterase Negative (Negative) 04/02/18 14:00 Urine Glucose Negative (Negative) 04/02/18 14:00 Vital Signs Temp 97.8 F 04/04/18 11:10 Pulse 85 04/04/18 11:10 Resp 18 04/04/18 11:10 BP 134/72 04/04/18 11:10 Pulse Ox 95 04/04/18 11:10 Intake & Output 04/03/18 04/04/18 04/04/18 18:59 06:59 18:59 Intake Total 1117 60 300 Balance 1117 60 300 Intake: IV Fluids 1057 NS (0.9%) 1057 Oral 60 60 300 Other: Estimated Void Medium Large # Bowel Movements 0 Estimated Stool Amount Small # Voids 3 2
[2018-04-04] MEDS: Senna TAB PO SCH (23:08)
[2018-04-04] MEDS: Melatonin 3 MG TAB PO SCH (23:13)
[2018-04-05] MEDS: Heparin VIAL(*) 5000 UNITS/ML VIAL (FIVE THOUSAND) SUBCUT SCH ×2 (06:38→14:57)
[2018-04-05] MEDS: Tiotropium CAP.INH* CAP.INH/18 MCG (USE ORDER SET !) INH SCH (07:31)
[2018-04-05] MEDS: Naproxen TAB* 250 MG PO SCH (09:38)
[2018-04-05] MEDS: CMC:OMEGA-3 FATTY ACIDS (NF) 1,000 MG CAP PO SCH (09:38)
[2018-04-05] MEDS: Aspirin EC TAB* 81 MG TAB.EC PO SCH (09:38)
[2018-04-05] MEDS: Calcium Carbonate TAB* 1250 MG (CALCIUM 500 MG) PO SCH ×2 (09:38→20:20)
[2018-04-05] MEDS: Metoprolol Tartrate TAB* 25 MG PO SCH ×2 (09:38→20:25)
[2018-04-05] MEDS: Nystatin TOP POWDER* 15 GM BTL TOPICAL SCH ×3 (09:38→23:25)
[2018-04-05] MEDS: Cholecalciferol TAB* 1000 UNITS PO SCH (09:38)
[2018-04-05] MEDS: Memantine TAB* 10 MG PO SCH ×2 (09:38→20:24)
[2018-04-05] MEDS: Atorvastatin* 10 MG TAB PO SCH (09:38)
[2018-04-05] MEDS: Docusate CAP* 100 MG PO SCH ×2 (09:39→20:21)
--- NOTE | 2018-04-05 10:11 | PN ---
Subjective Date of Service: 04/05/18 Interval History: pt is more verbal today, occasionally able to answer appropriately to questions. Denies pain. Still very poor historian Family History: Unchanged from Admission Social History: Unchanged from Admission Past Medical History: Unchanged from Admission Objective Active Medications: Acetaminophen (Tylenol Tab*) 650 mg PO Q4H PRN PRN Reason: PAIN/FEVER Last Admin: 04/03/18 05:17 Dose: 650 mg Albuterol (Ventolin Hfa Inhaler*) 2 puff INH Q4H PRN PRN Reason: SHORTNESS OF BREATH Aspirin (Aspirin Ec Tab*) 81 mg PO DAILY [facility] Last Admin: 04/05/18 09:38 Dose: 81 mg Atorvastatin Calcium (Lipitor*) 10 mg PO DAILY [facility] Last Admin: 04/05/18 09:38 Dose: 10 mg Calcium Carbonate (Calcium Carbonate Tab*) 1,250 mg PO BID [facility] Last Admin: 04/05/18 09:38 Dose: 1,250 mg Cholecalciferol (Vitamin D Tab*) 1,000 units PO DAILY [facility] Last Admin: 04/05/18 09:38 Dose: 1,000 units Docusate Sodium (Colace Cap*) 100 mg PO BID [facility] Last Admin: 04/05/18 09:39 Dose: Not Given Fish Oil (Fish Oil (Nf)) 1,000 mg PO DAILY [facility]; Protocol Last Admin: 04/05/18 09:38 Dose: 1,000 mg Heparin Sodium (Porcine) (Heparin Vial(*)) 5,000 units SUBCUT Q8HR [facility] Last Admin: 04/05/18 06:38 Dose: 5,000 units Loperamide HCl (Imodium Liq*) 2 mg PO DAILY PRN PRN Reason: LOOSE STOOLS Melatonin (Melatonin) 9 mg PO BEDTIME [facility] Last Admin: 04/04/18 23:13 Dose: 9 mg Memantine (Namenda Tab*) 10 mg PO BID [facility] Last Admin: 04/05/18 09:38 Dose: 10 mg Metoprolol Tartrate (Lopressor Tab*) 25 mg PO BID [facility] Last Admin: 04/05/18 09:38 Dose: 25 mg Naproxen (Naprosyn Tab*) 250 mg PO Q12H [facility] Stop: 04/05/18 23:59 Last Admin: 04/05/18 09:38 Dose: 250 mg Nystatin (Nystatin Top Powder*) 1 applic TOPICAL TID [facility] Last Admin: 04/05/18 09:38 Dose: 1 applic Senna (Senokot Tab*) 2 tab PO BEDTIME [facility] Last Admin: 04/04/18 23:08 Dose: 2 tab Tiotropium [place] (Spiriva Cap.Inh*) 1 cap INH DAILY [facility] Last Admin: 04/05/18 07:31 Dose: Not Given Vital Signs - 8 hr 04/05/18 04/05/18 04/05/18 03:11 07:37 07:41 Temperature 98.9 F 97.7 F Pulse Rate 78 78 Respiratory 18 16 18 Rate Blood Pressure 118/66 124/62 (mmHg) O2 Sat by Pulse 93 95 Oximetry Oxygen Devices in Use Now: None Appearance: 87 yo m, oriented to self Eyes: No Scleral Icterus, PERRLA Ears/Nose/Mouth/Throat: NL Teeth, Lips, Gums, Mucous Membranes Moist Neck: NL Appearance and Movements; NL JVP, Trachea Midline Respiratory: Symmetrical Chest Expansion and Respiratory Effort, Clear to Auscultation Cardiovascular: NL Sounds; No Murmurs; No JVD, RRR Abdominal: NL Sounds; No Tenderness; No Distention Lymphatic: No Cervical Adenopathy Extremities: No Edema, No Clubbing, Cyanosis, - - R wrist edema improved, ROM improved Skin: No Rash or Ulcers, No Nodules or Sclerosis Neurological: NL Muscle Strength and Tone Result Diagrams: 04/04/18 05:20 04/04/18 05:20 Additional Lab and Data: Microbiology and Other Data: Microbiology 03/25/18 05:20 Nasal Screen MRSA (PCR) - Final Nasal Mrsa Detected EKG Data: ns no acute st t change Assess/Plan/Problems-Billing Assessment: Mr. Segal is 87 yr old male with a history significant for mod dementia, prostate cancer, and HTN. Patient was in his normal state of health when he had a prolonged episode of syncope with bradycardia and hypotension with an episode of diarrhea. Patient was admitted for evaluation of syncope - Patient Problems (1) Fever Comment: temp 101.4 overnight 04/02/18. Resolved with tylenol , leukocytosis resolved Urine and CXR wnl Blood cultures neg Right wrist is only localizing symptom . appreciate ID and ortho consults. Suspect pseudogout. Appears to improve with [facility] Naproxen, will cont one more day (2) Bradycardia Comment: - No further episodes of symptomatic bradycardia - Donepezil discontinued and metoprolol decreased with resolution of bradycardia. - No evidence of [place] - Echocardiogram shows EF 55-60% with mild and mild pulm htn. (3) Elevated d-dimer Comment: - Unknown cause, CTA chest negative for PE and LE doppler negative for DVT. (4) Lethargy Comment: - improving -likely due to prerenal state, got sedated on Risperdal, then prerenal and hypernatremic. started on IVF on 04/03/18 AM now resolved. (5) Pulmonary edema Comment: - On Ct scan at admission with signs of pulmonary hypertension - Will not diurese due to no obvious signs of fluid overload. (6) HTN (hypertension) Comment: - Controlled - Continue decreased metoprolol, enalapril -d/c'd Norvasc for SBP in low 100's (7) Moderate dementia with behavioral disturbance Comment: Noted at the beginning of hospital stay. As per d/w daughter pt 's baseline mentation is pleasant and confused.I suspect pt developed delirium at admission probably related to pain , that improved dramatically aftyer R wrist cruz was treated. - started on Risperidone PO trialed but increased drowsiness and now discontinued. (8) DVT prophylaxis Comment: - Heparin SubQ. Status and Disposition: . Case management is following. Pt may need YENY prior to returning to [place]
[2018-04-05] MEDS: Senna TAB PO SCH (20:21)
[2018-04-05] MEDS: Melatonin 3 MG TAB PO SCH (20:24)
[2018-04-06] MEDS: Heparin VIAL(*) 5000 UNITS/ML VIAL (FIVE THOUSAND) SUBCUT SCH ×4 (00:23→23:03)
[2018-04-06] MEDS: Naproxen TAB* 250 MG PO SCH (00:24)
[2018-04-06] MEDS: Tiotropium CAP.INH* CAP.INH/18 MCG (USE ORDER SET !) INH SCH (07:44)
[2018-04-06] MEDS: Memantine TAB* 10 MG PO SCH ×2 (09:53→23:02)
[2018-04-06] MEDS: Docusate CAP* 100 MG PO SCH ×2 (09:54→23:01)
[2018-04-06] MEDS: Aspirin EC TAB* 81 MG TAB.EC PO SCH (09:54)
[2018-04-06] MEDS: Cholecalciferol TAB* 1000 UNITS PO SCH (09:54)
[2018-04-06] MEDS: Metoprolol Tartrate TAB* 25 MG PO SCH ×2 (09:54→23:02)
[2018-04-06] MEDS: Atorvastatin* 10 MG TAB PO SCH (09:54)
[2018-04-06] MEDS: CMC:OMEGA-3 FATTY ACIDS (NF) 1,000 MG CAP PO SCH (09:54)
[2018-04-06] MEDS: Calcium Carbonate TAB* 1250 MG (CALCIUM 500 MG) PO SCH ×2 (09:54→23:01)
[2018-04-06] MEDS: Nystatin TOP POWDER* 15 GM BTL TOPICAL SCH ×3 (10:34→23:02)
--- NOTE | 2018-04-06 13:46 | PN ---
Subjective Date of Service: 04/06/18 Interval History: Pt is sitting up in a chair, smiling, talking(nit really appropriate answers though). no complaints Family History: Unchanged from Admission Social History: Unchanged from Admission Past Medical History: Unchanged from Admission Objective Active Medications: Acetaminophen (Tylenol Tab*) 650 mg PO Q4H PRN PRN Reason: PAIN/FEVER Last Admin: 04/03/18 05:17 Dose: 650 mg Albuterol (Ventolin Hfa Inhaler*) 2 puff INH Q4H PRN PRN Reason: SHORTNESS OF BREATH Aspirin (Aspirin Ec Tab*) 81 mg PO DAILY [facility] Last Admin: 04/06/18 09:54 Dose: 81 mg Atorvastatin Calcium (Lipitor*) 10 mg PO DAILY [facility] Last Admin: 04/06/18 09:54 Dose: 10 mg Calcium Carbonate (Calcium Carbonate Tab*) 1,250 mg PO BID [facility] Last Admin: 04/06/18 09:54 Dose: 1,250 mg Cholecalciferol (Vitamin D Tab*) 1,000 units PO DAILY [facility] Last Admin: 04/06/18 09:54 Dose: 1,000 units Docusate Sodium (Colace Cap*) 100 mg PO BID [facility] Last Admin: 04/06/18 09:54 Dose: 100 mg Fish Oil (Fish Oil (Nf)) 1,000 mg PO DAILY [facility]; Protocol Last Admin: 04/06/18 09:54 Dose: 1,000 mg Heparin Sodium (Porcine) (Heparin Vial(*)) 5,000 units SUBCUT Q8HR [facility] Last Admin: 04/06/18 06:41 Dose: 5,000 units Loperamide HCl (Imodium Liq*) 2 mg PO DAILY PRN PRN Reason: LOOSE STOOLS Melatonin (Melatonin) 9 mg PO BEDTIME [facility] Last Admin: 04/05/18 20:24 Dose: 9 mg Memantine (Namenda Tab*) 10 mg PO BID [facility] Last Admin: 04/06/18 09:53 Dose: 10 mg Metoprolol Tartrate (Lopressor Tab*) 25 mg PO BID [facility] Last Admin: 04/06/18 09:54 Dose: 25 mg Nystatin (Nystatin Top Powder*) 1 applic TOPICAL TID [facility] Last Admin: 04/06/18 10:34 Dose: Not Given Senna (Senokot Tab*) 2 tab PO BEDTIME [facility] Last Admin: 04/05/18 20:21 Dose: 2 tab Tiotropium [place] (Spiriva Cap.Inh*) 1 cap INH DAILY [facility] Last Admin: 04/06/18 07:44 Dose: Not Given Vital Signs - 8 hr 04/06/18 08:15 Pulse Rate 87 Respiratory 16 Rate Blood Pressure 129/64 (mmHg) O2 Sat by Pulse 97 Oximetry Oxygen Devices in Use Now: None Appearance: 87 yo M in NAD, oriented to self only Eyes: No Scleral Icterus, PERRLA Ears/Nose/Mouth/Throat: NL Teeth, Lips, Gums, Mucous Membranes Moist Neck: NL Appearance and Movements; NL JVP, Trachea Midline Respiratory: Symmetrical Chest Expansion and Respiratory Effort, Clear to Auscultation Cardiovascular: NL Sounds; No Murmurs; No JVD, RRR Abdominal: NL Sounds; No Tenderness; No Distention Lymphatic: No Cervical Adenopathy Extremities: No Edema, No Clubbing, Cyanosis Skin: No Rash or Ulcers, No Nodules or Sclerosis Neurological: NL Muscle Strength and Tone Result Diagrams: 04/04/18 05:20 04/04/18 05:20 Additional Lab and Data: Microbiology and Other Data: Microbiology 03/25/18 05:20 Nasal Screen MRSA (PCR) - Final Nasal Mrsa Detected EKG Data: ns no acute st t change Assess/Plan/Problems-Billing Assessment: Mr. Segal is 87 yr old male with a history significant for mod dementia, prostate cancer, and HTN. Patient was in his normal state of health when he had a prolonged episode of syncope with bradycardia and hypotension with an episode of diarrhea. Patient was admitted for evaluation of syncope - Patient Problems (1) Moderate dementia with behavioral disturbance Comment: Noted at the beginning of hospital stay. As per d/w daughter pt 's baseline mentation is pleasant and confused.I suspect pt developed delirium at admission probably related to pain , that improved dramatically after R wrist cruz was treated. - started on Risperidone PO trial but increased drowsiness and discontinued. (2) Lethargy Comment: - resolved -likely due to prerenal state, got sedated on Risperdal, then prerenal and hypernatremic. started on IVF on 04/03/18 AM now resolved. (3) Fever Comment: Resolved temp 101.4 overnight 04/02/18. Resolved with tylenol , leukocytosis resolved Urine and CXR wnl Blood cultures neg Right wrist is only localizing symptom . appreciate ID and ortho consults. Suspect pseudogout. Improved with KATINA Naproxen-will d/c (4) Bradycardia Comment: - No further episodes of symptomatic bradycardia - Donepezil discontinued and metoprolol decreased with resolution of bradycardia. - No evidence of [place] - Echocardiogram shows EF 55-60% with mild and mild pulm htn. (5) Elevated d-dimer Comment: - Unknown cause, CTA chest negative for PE and LE doppler negative for DVT. (6) Pulmonary edema Comment: - On Ct scan at admission with signs of pulmonary hypertension - Will not diurese due to no obvious signs of fluid overload. (7) HTN (hypertension) Comment: - Controlled - Continue decreased metoprolol -d/c'd Norvasc for SBP in low 100's (8) DVT prophylaxis Comment: - Heparin SubQ. Status and Disposition: . Case management is following. Pt may need YENY prior to returning to [place]
[2018-04-06] MEDS: Senna TAB PO SCH (23:02)
[2018-04-06] MEDS: Acetaminophen TAB* 325 MG PO PRN (23:02)
[2018-04-06] MEDS: Melatonin 3 MG TAB PO SCH (23:02)
[2018-04-07] MEDS: Heparin VIAL(*) 5000 UNITS/ML VIAL (FIVE THOUSAND) SUBCUT SCH ×3 (04:56→22:45)
[2018-04-07] MEDS: Tiotropium CAP.INH* CAP.INH/18 MCG (USE ORDER SET !) INH SCH (07:29)
[2018-04-07] MEDS: Docusate CAP* 100 MG PO SCH ×2 (08:53→21:20)
[2018-04-07] MEDS: Cholecalciferol TAB* 1000 UNITS PO SCH (08:54)
[2018-04-07] MEDS: Memantine TAB* 10 MG PO SCH ×2 (08:54→21:20)
[2018-04-07] MEDS: Atorvastatin* 10 MG TAB PO SCH (08:55)
[2018-04-07] MEDS: Nystatin TOP POWDER* 15 GM BTL TOPICAL SCH ×3 (08:58→22:00)
[2018-04-07] MEDS: Calcium Carbonate TAB* 1250 MG (CALCIUM 500 MG) PO SCH ×2 (08:58→21:20)
[2018-04-07] MEDS: Metoprolol Tartrate TAB* 25 MG PO SCH ×2 (08:59→21:20)
[2018-04-07] MEDS: Aspirin EC TAB* 81 MG TAB.EC PO SCH (08:59)
[2018-04-07] MEDS: CMC:OMEGA-3 FATTY ACIDS (NF) 1,000 MG CAP PO SCH (09:02)
--- NOTE | 2018-04-07 12:49 | PN ---
Subjective Date of Service: 04/07/18 Interval History: Pt is at his baseline in the past 3 days. Able to carry on a simple conversation , although sometimes his answers are not appropriate Family History: Unchanged from Admission Social History: Unchanged from Admission Past Medical History: Unchanged from Admission Objective Active Medications: Acetaminophen (Tylenol Tab*) 650 mg PO Q4H PRN PRN Reason: PAIN/FEVER Last Admin: 04/06/18 23:02 Dose: 650 mg Albuterol (Ventolin Hfa Inhaler*) 2 puff INH Q4H PRN PRN Reason: SHORTNESS OF BREATH Aspirin (Aspirin Ec Tab*) 81 mg PO DAILY [facility] Last Admin: 04/07/18 08:59 Dose: 81 mg Atorvastatin Calcium (Lipitor*) 10 mg PO DAILY [facility] Last Admin: 04/07/18 08:55 Dose: 10 mg Calcium Carbonate (Calcium Carbonate Tab*) 1,250 mg PO BID [facility] Last Admin: 04/07/18 08:58 Dose: 1,250 mg Cholecalciferol (Vitamin D Tab*) 1,000 units PO DAILY [facility] Last Admin: 04/07/18 08:54 Dose: 1,000 units Docusate Sodium (Colace Cap*) 100 mg PO BID [facility] Last Admin: 04/07/18 08:53 Dose: 100 mg Fish Oil (Fish Oil (Nf)) 1,000 mg PO DAILY [facility]; Protocol Last Admin: 04/07/18 09:02 Dose: 1,000 mg Heparin Sodium (Porcine) (Heparin Vial(*)) 5,000 units SUBCUT Q8HR [facility] Last Admin: 04/07/18 04:56 Dose: 5,000 units Loperamide HCl (Imodium Liq*) 2 mg PO DAILY PRN PRN Reason: LOOSE STOOLS Melatonin (Melatonin) 9 mg PO BEDTIME [facility] Last Admin: 04/06/18 23:02 Dose: 9 mg Memantine (Namenda Tab*) 10 mg PO BID [facility] Last Admin: 04/07/18 08:54 Dose: 10 mg Metoprolol Tartrate (Lopressor Tab*) 25 mg PO BID [facility] Last Admin: 04/07/18 08:59 Dose: 25 mg Nystatin (Nystatin Top Powder*) 1 applic TOPICAL TID [facility] Last Admin: 04/07/18 08:58 Dose: Not Given Senna (Senokot Tab*) 2 tab PO BEDTIME [facility] Last Admin: 04/06/18 23:02 Dose: 2 tab Tiotropium [place] (Spiriva Cap.Inh*) 1 cap INH DAILY [facility] Last Admin: 04/07/18 07:29 Dose: Not Given Vital Signs - 8 hr 04/07/18 04/07/18 03:15 07:39 Temperature 97.9 F 98.6 F Pulse Rate 91 69 Respiratory 20 18 Rate Blood Pressure 117/68 109/50 (mmHg) O2 Sat by Pulse 96 96 Oximetry Oxygen Devices in Use Now: None Appearance: 87 yo M oriented to self, pleasant and cooperative, but unable to follow commands Eyes: No Scleral Icterus, PERRLA Ears/Nose/Mouth/Throat: NL Teeth, Lips, Gums, Mucous Membranes Moist Neck: NL Appearance and Movements; NL JVP, Trachea Midline Respiratory: Symmetrical Chest Expansion and Respiratory Effort Cardiovascular: NL Sounds; No Murmurs; No JVD, RRR Abdominal: NL Sounds; No Tenderness; No Distention Lymphatic: No Cervical Adenopathy Extremities: No Clubbing, Cyanosis Skin: No Rash or Ulcers, No Nodules or Sclerosis Neurological: NL Muscle Strength and Tone Result Diagrams: 04/04/18 05:20 04/04/18 05:20 Additional Lab and Data: Microbiology and Other Data: Microbiology 03/25/18 05:20 Nasal Screen MRSA (PCR) - Final Nasal Mrsa Detected EKG Data: ns no acute st t change Assess/Plan/Problems-Billing Assessment: Mr. Segal is 87 yr old male with a history significant for mod dementia, prostate cancer, and HTN. Patient was in his normal state of health when he had a prolonged episode of syncope with bradycardia and hypotension with an episode of diarrhea. Patient was admitted for evaluation of syncope - Patient Problems (1) Moderate dementia with behavioral disturbance Comment: Noted at the beginning of hospital stay. As per d/w daughter pt 's baseline mentation is pleasant and confused.I suspect pt developed delirium at admission probably related to pain , that improved dramatically after R wrist cruz was treated. - started on Risperidone PO trial but increased drowsiness and discontinued. (2) Lethargy Comment: - resolved -likely due to prerenal state, got sedated on Risperdal, then prerenal and hypernatremic. started on IVF on 04/03/18 AM now resolved. (3) Fever Comment: Resolved temp 101.4 overnight 04/02/18. Resolved with tylenol , leukocytosis resolved Urine and CXR wnl Blood cultures neg Right wrist is only localizing symptom . appreciate ID and ortho consults. Suspect pseudogout. Improved with [facility]ATINA Naproxen x 2 days, now off NSAIDS (4) Bradycardia Comment: - No further episodes of symptomatic bradycardia - Donepezil discontinued and metoprolol decreased with resolution of bradycardia. - No evidence of [place] - Echocardiogram shows EF 55-60% with mild and mild pulm htn. (5) Elevated d-dimer Comment: - Unknown cause, CTA chest negative for PE and LE doppler negative for DVT. (6) Pulmonary edema Comment: - On Ct scan at admission with signs of pulmonary hypertension - Will not diurese due to no obvious signs of fluid overload. (7) HTN (hypertension) Comment: - Controlled - Continue decreased metoprolol -d/c'd Norvasc for SBP in low 100's (8) DVT prophylaxis Comment: - Heparin SubQ. Status and Disposition: . Case management is following. Medically ready for d/c but awaiting STR disposition
[2018-04-07] MEDS: Senna TAB PO SCH (21:20)
[2018-04-07] MEDS: Melatonin 3 MG TAB PO SCH (21:20)
[2018-04-07] MEDS: Acetaminophen TAB* 325 MG PO PRN (21:20)
[2018-04-08] MEDS: Heparin VIAL(*) 5000 UNITS/ML VIAL (FIVE THOUSAND) SUBCUT SCH ×3 (05:35→20:44)
[2018-04-08 06:16] LABS: BUN/Creatinine Ratio 33.1 (8-20); Calcium 9.2 mg/dL (8.6-10.3); EGFR Non-African American 58.7 (>60); Potassium 4.2 mmol/L (3.5-5.0)
[2018-04-08] MEDS: Tiotropium CAP.INH* CAP.INH/18 MCG (USE ORDER SET !) INH SCH (08:03)
[2018-04-08] MEDS ORDERED: Naproxen TAB* 250 MG PO PRN (08:04)
[2018-04-08] MEDS: Cholecalciferol TAB* 1000 UNITS PO SCH (09:18)
[2018-04-08] MEDS: Docusate CAP* 100 MG PO SCH ×3 (09:18→20:57)
[2018-04-08] MEDS: Memantine TAB* 10 MG PO SCH ×2 (09:18→20:43)
[2018-04-08] MEDS: Atorvastatin* 10 MG TAB PO SCH (09:18)
[2018-04-08] MEDS: Aspirin EC TAB* 81 MG TAB.EC PO SCH (09:18)
[2018-04-08] MEDS: Metoprolol Tartrate TAB* 25 MG PO SCH ×2 (09:18→20:43)
[2018-04-08] MEDS: Calcium Carbonate TAB* 1250 MG (CALCIUM 500 MG) PO SCH ×2 (09:18→20:43)
[2018-04-08] MEDS: CMC:OMEGA-3 FATTY ACIDS (NF) 1,000 MG CAP PO SCH (09:22)
[2018-04-08] MEDS: Nystatin TOP POWDER* 15 GM BTL TOPICAL SCH ×3 (09:26→21:06)
[2018-04-08] MEDS: NS 0.9% 1000 ML* 1,000 ML IV SCH ×2 (09:38→23:35)
--- NOTE | 2018-04-08 12:53 | PN ---
Subjective Date of Service: 04/08/18 Interval History: Pt's manation is unchanged in the past 3 days.pleasant, not able to follow commands and only a few words/answers are appropriate. Pt has no complaints Family History: Unchanged from Admission Social History: Unchanged from Admission Past Medical History: Unchanged from Admission Objective Active Medications: Acetaminophen (Tylenol Tab*) 650 mg PO Q4H PRN PRN Reason: PAIN/FEVER Last Admin: 04/07/18 21:20 Dose: 650 mg Albuterol (Ventolin Hfa Inhaler*) 2 puff INH Q4H PRN PRN Reason: SHORTNESS OF BREATH Aspirin (Aspirin Ec Tab*) 81 mg PO DAILY [facility] Last Admin: 04/08/18 09:18 Dose: 81 mg Atorvastatin Calcium (Lipitor*) 10 mg PO DAILY [facility] Last Admin: 04/08/18 09:18 Dose: 10 mg Calcium Carbonate (Calcium Carbonate Tab*) 1,250 mg PO BID [facility] Last Admin: 04/08/18 09:18 Dose: 1,250 mg Cholecalciferol (Vitamin D Tab*) 1,000 units PO DAILY [facility] Last Admin: 04/08/18 09:18 Dose: 1,000 units Docusate Sodium (Colace Cap*) 100 mg PO BID [facility] Last Admin: 04/08/18 09:18 Dose: 100 mg Fish Oil (Fish Oil (Nf)) 1,000 mg PO DAILY [facility]; Protocol Last Admin: 04/08/18 09:22 Dose: 1,000 mg Heparin Sodium (Porcine) (Heparin Vial(*)) 5,000 units SUBCUT Q8HR [facility]PL[facility] Last Admin: 04/08/18 05:35 Dose: 5,000 units Sodium Chloride (Ns 0.9% 1000 Ml*) 1,000 mls @ 75 mls/hr IV PER RATE REPLACED BY [facility] Last Admin: 04/08/18 09:38 Dose: 75 mls/hr Loperamide HCl (Imodium Liq*) 2 mg PO DAILY PRN PRN Reason: LOOSE STOOLS Melatonin (Melatonin) 9 mg PO BEDTIME [facility] Last Admin: 04/07/18 21:20 Dose: 9 mg Memantine (Namenda Tab*) 10 mg PO BID [facility] Last Admin: 04/08/18 09:18 Dose: 10 mg Metoprolol Tartrate (Lopressor Tab*) 25 mg PO BID [facility] Last Admin: 04/08/18 09:18 Dose: 25 mg Naproxen (Naprosyn Tab*) 250 mg PO Q12H PRN PRN Reason: PAIN Nystatin (Nystatin Top Powder*) 1 applic TOPICAL TID REPLACED BY [facility] Last Admin: 04/08/18 09:26 Dose: Not Given Senna (Senokot Tab*) 2 tab PO BEDTIME [facility]PL[facility] Last Admin: 04/07/18 21:20 Dose: 2 tab Tiotropium [place] (Spiriva Cap.Inh*) 1 cap INH DAILY [facility] Last Admin: 04/08/18 08:03 Dose: 1 cap Vital Signs - 8 hr 04/08/18 04/08/18 04/08/18 07:41 08:06 09:39 Temperature 97.4 F Pulse Rate 77 55 Respiratory 22 16 18 Rate Blood Pressure 126/68 (mmHg) O2 Sat by Pulse 96 96 Oximetry Oxygen Devices in Use Now: None Appearance: 87 yo M in NAD, AAOx1 Eyes: No Scleral Icterus, PERRLA Ears/Nose/Mouth/Throat: NL Teeth, Lips, Gums, Mucous Membranes Moist Neck: NL Appearance and Movements; NL JVP, Trachea Midline Respiratory: Symmetrical Chest Expansion and Respiratory Effort, Clear to Auscultation Cardiovascular: NL Sounds; No Murmurs; No JVD, RRR Abdominal: NL Sounds; No Tenderness; No Distention Lymphatic: No Cervical Adenopathy Extremities: No Edema, No Clubbing, Cyanosis Skin: No Rash or Ulcers, No Nodules or Sclerosis Neurological: NL Muscle Strength and Tone Result Diagrams: 04/04/18 05:20 04/08/18 05:46 Additional Lab and Data: Microbiology and Other Data: Microbiology 03/25/18 05:20 Nasal Screen MRSA (PCR) - Final Nasal Mrsa Detected EKG Data: ns no acute st t change Assess/Plan/Problems-Billing Assessment: Mr. Segal is 87 yr old male with a history significant for mod dementia, prostate cancer, and HTN. Patient was in his normal state of health when he had a prolonged episode of syncope with bradycardia and hypotension with an episode of diarrhea. Patient was admitted for evaluation of syncope - Patient Problems (1) Creatinine elevation Comment: pt is unable to feel himself and I suspect he is a little dehydrated.Will start gentle IVF (2) Moderate dementia with behavioral disturbance Comment: Noted at the beginning of hospital stay. As per d/w daughter pt 's baseline mentation is pleasant and confused.I suspect pt developed delirium at admission probably related to pain , that improved dramatically after R wrist cruz was treated. - started on Risperidone PO trial but increased drowsiness and discontinued. (3) Lethargy Comment: - resolved -likely due to prerenal state, got sedated on Risperdal, then prerenal and hypernatremic. started on IVF on 04/03/18 AM now resolved. (4) Fever Comment: Resolved temp 101.4 overnight 04/02/18. Resolved with tylenol , leukocytosis resolved Urine and CXR wnl Blood cultures neg Right wrist is only localizing symptom . appreciate ID and ortho consults. Suspect pseudogout. Improved with KATINA Naproxen x 2 days, now on Naproxen prn (5) Bradycardia Comment: - No further episodes of symptomatic bradycardia - Donepezil discontinued and metoprolol decreased with resolution of bradycardia. - No evidence of [place] - Echocardiogram shows EF 55-60% with mild and mild pulm htn. (6) Elevated d-dimer Comment: - Unknown cause, CTA chest negative for PE and LE doppler negative for DVT. (7) Pulmonary edema Comment: - On Ct scan at admission with signs of pulmonary hypertension - Will not diurese due to no obvious signs of fluid overload. (8) HTN (hypertension) Comment: - Controlled - Continue decreased metoprolol -d/c'd Norvasc for SBP in low 100's (9) DVT prophylaxis Comment: - Heparin SubQ. Status and Disposition: . Case management is following. Medically ready for d/c but awaiting STR disposition
[2018-04-08] MEDS: Melatonin 3 MG TAB PO SCH (20:43)
[2018-04-08] MEDS: Senna TAB PO SCH (20:43)
[2018-04-09] MEDS: Heparin VIAL(*) 5000 UNITS/ML VIAL (FIVE THOUSAND) SUBCUT SCH ×3 (05:29→22:10)
[2018-04-09] MEDS: Tiotropium CAP.INH* CAP.INH/18 MCG (USE ORDER SET !) INH SCH (08:14)
[2018-04-09] MEDS: Docusate CAP* 100 MG PO SCH ×2 (08:36→22:03)
[2018-04-09] MEDS: CMC:OMEGA-3 FATTY ACIDS (NF) 1,000 MG CAP PO SCH (08:37)
[2018-04-09] MEDS: Memantine TAB* 10 MG PO SCH ×2 (08:38→22:04)
[2018-04-09] MEDS: Aspirin EC TAB* 81 MG TAB.EC PO SCH (08:39)
[2018-04-09] MEDS: Calcium Carbonate TAB* 1250 MG (CALCIUM 500 MG) PO SCH ×2 (08:39→22:01)
[2018-04-09] MEDS: Metoprolol Tartrate TAB* 25 MG PO SCH ×2 (08:39→22:05)
[2018-04-09] MEDS: Atorvastatin* 10 MG TAB PO SCH (08:39)
[2018-04-09] MEDS: Cholecalciferol TAB* 1000 UNITS PO SCH (08:39)
[2018-04-09] MEDS: Nystatin TOP POWDER* 15 GM BTL TOPICAL SCH ×3 (08:46→22:01)
[2018-04-09 09:53] LABS: Calcium 9.1 mg/dL (8.6-10.3); EGFR Non-African American 65.7 (>60)
[2018-04-09] MEDS: NS 0.9% 1000 ML* 1,000 ML IV SCH (13:23)
--- NOTE | 2018-04-09 14:10 | PN ---
Subjective Date of Service: 04/09/18 Interval History: Pt is at his baseline.Denies pain.Very disoriented, unable to follow most of commands. Seen with daughter in the room Family History: Unchanged from Admission Social History: Unchanged from Admission Past Medical History: Unchanged from Admission Objective Active Medications: Acetaminophen (Tylenol Tab*) 650 mg PO Q4H PRN PRN Reason: PAIN/FEVER Last Admin: 04/07/18 21:20 Dose: 650 mg Albuterol (Ventolin Hfa Inhaler*) 2 puff INH Q4H PRN PRN Reason: SHORTNESS OF BREATH Aspirin (Aspirin Ec Tab*) 81 mg PO DAILY [facility] Last Admin: 04/09/18 08:39 Dose: 81 mg Atorvastatin Calcium (Lipitor*) 10 mg PO DAILY [facility] Last Admin: 04/09/18 08:39 Dose: 10 mg Calcium Carbonate (Calcium Carbonate Tab*) 1,250 mg PO BID [facility] Last Admin: 04/09/18 08:39 Dose: 1,250 mg Cholecalciferol (Vitamin D Tab*) 1,000 units PO DAILY [facility] Last Admin: 04/09/18 08:39 Dose: 1,000 units Docusate Sodium (Colace Cap*) 100 mg PO BID [facility] Last Admin: 04/09/18 08:36 Dose: Not Given Fish Oil (Fish Oil (Nf)) 1,000 mg PO DAILY [facility]; Protocol Last Admin: 04/09/18 08:37 Dose: Not Given Heparin Sodium (Porcine) (Heparin Vial(*)) 5,000 units SUBCUT Q8HR [facility] Last Admin: 04/09/18 13:24 Dose: 5,000 units Loperamide HCl (Imodium Liq*) 2 mg PO DAILY PRN PRN Reason: LOOSE STOOLS Melatonin (Melatonin) 9 mg PO BEDTIME [facility] Last Admin: 04/08/18 20:43 Dose: 9 mg Memantine (Namenda Tab*) 10 mg PO BID [facility] Last Admin: 04/09/18 08:38 Dose: 10 mg Metoprolol Tartrate (Lopressor Tab*) 25 mg PO BID [facility] Last Admin: 04/09/18 08:39 Dose: 25 mg Naproxen (Naprosyn Tab*) 250 mg PO Q12H PRN PRN Reason: PAIN Nystatin (Nystatin Top Powder*) 1 applic TOPICAL TID [facility] Last Admin: 04/09/18 13:33 Dose: Not Given Senna (Senokot Tab*) 2 tab PO BEDTIME [facility] Last Admin: 04/08/18 20:43 Dose: 2 tab Tiotropium [place] (Spiriva Cap.Inh*) 1 cap INH DAILY [facility] Last Admin: 04/09/18 08:14 Dose: Not Given Vital Signs - 8 hr 04/09/18 04/09/18 04/09/18 07:36 08:50 11:19 Temperature 97.5 F 98.1 F Pulse Rate 80 80 Respiratory 16 16 16 Rate Blood Pressure 124/64 112/71 (mmHg) O2 Sat by Pulse 95 96 Oximetry Oxygen Devices in Use Now: None Appearance: 87 yo M in nAD, , oriented to self only, speaking mostly word salad , but able to read a newspaper today. Eyes: No Scleral Icterus, PERRLA Ears/Nose/Mouth/Throat: NL Teeth, Lips, Gums, Mucous Membranes Moist Neck: NL Appearance and Movements; NL JVP, Trachea Midline Respiratory: Symmetrical Chest Expansion and Respiratory Effort, Clear to Auscultation Cardiovascular: NL Sounds; No Murmurs; No JVD, No Edema Abdominal: NL Sounds; No Tenderness; No Distention Lymphatic: No Cervical Adenopathy Extremities: No Clubbing, Cyanosis Skin: No Rash or Ulcers, No Nodules or Sclerosis Neurological: NL Muscle Strength and Tone Result Diagrams: 04/04/18 05:20 04/09/18 09:20 Additional Lab and Data: Microbiology and Other Data: Microbiology 03/25/18 05:20 Nasal Screen MRSA (PCR) - Final Nasal Mrsa Detected EKG Data: ns no acute st t change Assess/Plan/Problems-Billing Assessment: Mr. Segal is 87 yr old male with a history significant for mod dementia, prostate cancer, and HTN. Patient was in his normal state of health when he had a prolonged episode of syncope with bradycardia and hypotension with an episode of diarrhea. Patient was admitted for evaluation of syncope - Patient Problems (1) Creatinine elevation Comment: pt is unable to feel himself daughter thinks that he would not want to be fed. Will ask palliative care consult if we can withdraw pt's feeding at daughter's request (2) Moderate dementia with behavioral disturbance Comment: Noted at the beginning of hospital stay. As per d/w daughter pt 's baseline mentation is pleasant and confused.I suspect pt developed delirium at admission probably related to pain , that improved dramatically after R wrist cruz was treated. - started on Risperidone PO trial but increased drowsiness and discontinued. (3) Lethargy Comment: - resolved -likely due to prerenal state, got sedated on Risperdal, then prerenal and hypernatremic. started on IVF on 04/03/18 AM now resolved. (4) Fever Comment: Resolved temp 101.4 overnight 04/02/18. Resolved with tylenol , leukocytosis resolved Urine and CXR wnl Blood cultures neg Right wrist is only localizing symptom . appreciate ID and ortho consults. Suspect pseudogout. Improved with KATINA Naproxen x 2 days, now on Naproxen prn (5) Bradycardia Comment: - No further episodes of symptomatic bradycardia - Donepezil discontinued and metoprolol decreased with resolution of bradycardia. - No evidence of [place] - Echocardiogram shows EF 55-60% with mild and mild pulm htn. (6) Elevated d-dimer Comment: - Unknown cause, CTA chest negative for PE and LE doppler negative for DVT. (7) Pulmonary edema Comment: - On Ct scan at admission with signs of pulmonary hypertension - Will not diurese due to no obvious signs of fluid overload. (8) HTN (hypertension) Comment: - Controlled - Continue decreased metoprolol -d/c'd Norvasc for SBP in low 100's (9) DVT prophylaxis Comment: - Heparin SubQ. Status and Disposition: . Case management is following. Medically ready for d/c but awaiting STR disposition
[2018-04-09] MEDS: Senna TAB PO SCH (22:03)
[2018-04-09] MEDS: Melatonin 3 MG TAB PO SCH (22:05)
[2018-04-10] MEDS: Heparin VIAL(*) 5000 UNITS/ML VIAL (FIVE THOUSAND) SUBCUT SCH ×3 (05:46→20:41)
[2018-04-10] MEDS: Tiotropium CAP.INH* CAP.INH/18 MCG (USE ORDER SET !) INH SCH (08:00)
[2018-04-10] MEDS: Metoprolol Tartrate TAB* 25 MG PO SCH ×2 (08:53→20:34)
[2018-04-10] MEDS: Memantine TAB* 10 MG PO SCH ×2 (08:54→20:34)
[2018-04-10] MEDS: Nystatin TOP POWDER* 15 GM BTL TOPICAL SCH ×3 (08:54→20:29)
[2018-04-10] MEDS: Calcium Carbonate TAB* 1250 MG (CALCIUM 500 MG) PO SCH ×2 (08:54→20:34)
[2018-04-10] MEDS: Aspirin EC TAB* 81 MG TAB.EC PO SCH (08:54)
[2018-04-10] MEDS: Docusate CAP* 100 MG PO SCH ×2 (08:54→20:29)
[2018-04-10] MEDS: Cholecalciferol TAB* 1000 UNITS PO SCH (08:54)
[2018-04-10] MEDS: Atorvastatin* 10 MG TAB PO SCH (08:54)
[2018-04-10] MEDS: CMC:OMEGA-3 FATTY ACIDS (NF) 1,000 MG CAP PO SCH (08:54)
--- NOTE | 2018-04-10 11:32 | PN ---
Subjective Date of Service: 04/10/18 Interval History: Pt's mental status is unchanged, still pleasant and not able to follow commands Family History: Unchanged from Admission Social History: Unchanged from Admission Past Medical History: Unchanged from Admission Objective Active Medications: Acetaminophen (Tylenol Tab*) 650 mg PO Q4H PRN PRN Reason: PAIN/FEVER Last Admin: 04/07/18 21:20 Dose: 650 mg Albuterol (Ventolin Hfa Inhaler*) 2 puff INH Q4H PRN PRN Reason: SHORTNESS OF BREATH Aspirin (Aspirin Ec Tab*) 81 mg PO DAILY [facility] Last Admin: 04/10/18 08:54 Dose: 81 mg Atorvastatin Calcium (Lipitor*) 10 mg PO DAILY [facility] Last Admin: 04/10/18 08:54 Dose: 10 mg Calcium Carbonate (Calcium Carbonate Tab*) 1,250 mg PO BID [facility] Last Admin: 04/10/18 08:54 Dose: 1,250 mg Cholecalciferol (Vitamin D Tab*) 1,000 units PO DAILY [facility] Last Admin: 04/10/18 08:54 Dose: 1,000 units Docusate Sodium (Colace Cap*) 100 mg PO BID [facility] Last Admin: 04/10/18 08:54 Dose: Not Given Heparin Sodium (Porcine) (Heparin Vial(*)) 5,000 units SUBCUT Q8HR [facility] Last Admin: 04/10/18 05:46 Dose: 5,000 units Loperamide HCl (Imodium Liq*) 2 mg PO DAILY PRN PRN Reason: LOOSE STOOLS Melatonin (Melatonin) 9 mg PO BEDTIME [facility] Last Admin: 04/09/18 22:05 Dose: 9 mg Memantine (Namenda Tab*) 10 mg PO BID [facility] Last Admin: 04/10/18 08:54 Dose: 10 mg Metoprolol Tartrate (Lopressor Tab*) 25 mg PO BID [facility] Last Admin: 04/10/18 08:53 Dose: 25 mg Naproxen (Naprosyn Tab*) 250 mg PO Q12H PRN PRN Reason: PAIN Nystatin (Nystatin Top Powder*) 1 applic TOPICAL TID [facility] Last Admin: 04/10/18 08:54 Dose: 1 applic Senna (Senokot Tab*) 2 tab PO BEDTIME [facility] Last Admin: 04/09/18 22:03 Dose: 2 tab Tiotropium [place] (Spiriva Cap.Inh*) 1 cap INH DAILY [facility] Last Admin: 04/10/18 08:00 Dose: 1 cap Vital Signs - 8 hr 04/10/18 04/10/18 07:39 09:14 Temperature 97.5 F Pulse Rate 82 Respiratory 16 16 Rate Blood Pressure 124/70 (mmHg) O2 Sat by Pulse 94 Oximetry Oxygen Devices in Use Now: None Appearance: 87 yo M in nAD, oriented to self only Eyes: No Scleral Icterus, PERRLA Ears/Nose/Mouth/Throat: NL Teeth, Lips, Gums, Mucous Membranes Moist Neck: NL Appearance and Movements; NL JVP, Trachea Midline Respiratory: Symmetrical Chest Expansion and Respiratory Effort, Clear to Auscultation Cardiovascular: NL Sounds; No Murmurs; No JVD Abdominal: NL Sounds; No Tenderness; No Distention Lymphatic: No Cervical Adenopathy Extremities: No Edema Skin: No Rash or Ulcers, No Nodules or Sclerosis Neurological: NL Muscle Strength and Tone Result Diagrams: 04/04/18 05:20 04/09/18 09:20 Additional Lab and Data: Microbiology and Other Data: Microbiology 03/25/18 05:20 Nasal Screen MRSA (PCR) - Final Nasal Mrsa Detected EKG Data: ns no acute st t change Assess/Plan/Problems-Billing Assessment: Mr. Segal is 87 yr old male with a history significant for mod dementia, prostate cancer, and HTN. Patient was in his normal state of health when he had a prolonged episode of syncope with bradycardia and hypotension with an episode of diarrhea. Patient was admitted for evaluation of syncope - Patient Problems (1) Creatinine elevation Comment: pt is unable to feel himself daughter thinks that he would not want to be fed. awaiting palliative care consult if we can withdraw pt's feeding at daughter's request (2) Moderate dementia with behavioral disturbance Comment: Noted at the beginning of hospital stay. As per d/w daughter pt 's baseline mentation is pleasant and confused.I suspect pt developed delirium at admission probably related to pain , that improved dramatically after R wrist cruz was treated. - started on Risperidone PO trial but increased drowsiness and discontinued. (3) Lethargy Comment: - resolved -likely due to prerenal state, got sedated on Risperdal, then prerenal and hypernatremic. started on IVF on 04/03/18 AM now resolved. (4) Fever Comment: Resolved temp 101.4 overnight 04/02/18. Resolved with tylenol , leukocytosis resolved Urine and CXR wnl Blood cultures neg Right wrist is only localizing symptom . appreciate ID and ortho consults. Suspect pseudogout. Improved with KATINA Naproxen x 2 days, now on Naproxen prn (5) Bradycardia Comment: - No further episodes of symptomatic bradycardia - Donepezil discontinued and metoprolol decreased with resolution of bradycardia. - No evidence of [place] - Echocardiogram shows EF 55-60% with mild and mild pulm htn. (6) Elevated d-dimer Comment: - Unknown cause, CTA chest negative for PE and LE doppler negative for DVT. (7) Pulmonary edema Comment: - On Ct scan at admission with signs of pulmonary hypertension - Will not diurese due to no obvious signs of fluid overload. (8) HTN (hypertension) Comment: - Controlled - Continue decreased metoprolol -d/c'd Norvasc for SBP in low 100's (9) DVT prophylaxis Comment: - Heparin SubQ. Status and Disposition: . Case management is following. Medically ready for d/c but awaiting STR disposition
--- NOTE | 2018-04-10 13:26 | PN ---
Progress Note - Progress Note Date of Service: 04/09/18 SOAP: Subjective: []Patient seen and examined OOB in chair, have been following him loosely while in house. He has no pain of his right wrist. Objective: []General: NAD RUE: Right wrist is without erythema or edema. He is using the right hand normally without any hesitation. Nontender to palpation of the wrist. Flexion, extension, ulnar deviation and radial deviation intact without pain. Assessment: []pseudogout Plan: []No concern for septic wrist at this time. Please alert orthopedics with any concerns.
--- NOTE | 2018-04-10 16:19 | CONSULT ---
Palliative / Hospice Consult Ordering Provider: Claudine Harper - PCP-Sirena - Subjective Code Status: DNR Advance Directives Location: In Chart [facility] Part A Completed: Yes - completed with HCP [facility] Part E Completed:: Yes - completed with HCP - History or Present Illness History or Present Illness: 87 yo male resident of [facility] had an episode of syncope and was brought to the ER where he had low bp and increase heart rate. His PMH is significant for advanced dementia, valve replacement in 2013, HTN, pulmonary HTN, PVD, hyperlipidemia, IBS, anemia, h/o rheumatic fever, CAD with stents in LAD and circumflex, prostate cancer. Since at hospital he has had an echo which showed EF 55-60%, CXR showed pulmonary edema, ekg showed prolonged WI interval, venous doppler was negative, CT brain showed chronic microvascular densities and CT chest showed L elevated hemidiaphragm, pulmonary HTN and pulmonary edema. Pt is oriented to self only all history is from step daughter and medical records. He has had several episodes of combative behavior when he first arrived. He is incontinent of bladder and bowel. He was just starting to use a walker before he was hospitalized he can use it here with help but not on his own. He is not self feeding or dressing. He does talk but not in a meaningful way. KPS 30% and PPS 30% FAST score 7c. Most recently he was in the ER with syncope on 02/25/18 and discharged. He had been undergoing an outpatient work up with his PCP. Step daughter says he has made his wishes clear and doesn' t want to be intubated or have CPR. Lab Values: Laboratory Last Values WBC 9.0 10^3/ul (3.5-10.8) 04/04/18 05:20 RBC 3.38 10^6/ul (4.00-5.40) L 04/04/18 05:20 Hgb 10.2 g/dl (14.0-18.0) L 04/04/18 05:20 Hct 32 % (42-52) L 04/04/18 05:20 MCV 93 fL (80-94) 04/04/18 05:20 MCH 30 pg (27-31) 04/04/18 05:20 MCHC 32 g/dl (31-36) 04/04/18 05:20 RDW 15 % (10.5-15) 04/04/18 05:20 Plt Count 285 10^3/ul (150-450) 04/04/18 05:20 MPV 9.3 fL (7.4-10.4) 04/04/18 05:20 Neut % (Auto) 70.8 % 04/04/18 05:20 Lymph % (Auto) 15.2 % 04/04/18 05:20 [place] % (Auto) 9.3 % 04/04/18 05:20 Eos % (Auto) 3.6 % 04/04/18 05:20 Baso % (Auto) 1.1 % 04/04/18 05:20 Absolute Neuts (auto) 6.4 10^3/ul (1.5-7.7) 04/04/18 05:20 Absolute Lymphs (auto) 1.4 10^3/ul (1.0-4.8) 04/04/18 05:20 Absolute Monos (auto) 0.8 10^3/ul (0-0.8) 04/04/18 05:20 Absolute Eos (auto) 0.3 10^3/ul (0-0.6) 04/04/18 05:20 Absolute Basos (auto) 0.1 10^3/ul (0-0.2) 04/04/18 05:20 Absolute Nucleated RBC 0 10^3/ul 04/04/18 05:20 Nucleated RBC % 0 04/04/18 05:20 ESR 103 mm/Hr (0-40) H 04/02/18 07:22 INR (Anticoag Therapy) 0.98 (0.77-1.02) 03/24/18 19:41 APTT 25.6 seconds (26.0-36.3) L 03/24/18 19:41 D-Dimer, Quantitative 945 ng/mL (Less Than 230) H 03/25/18 05:18 Sodium 143 mmol/L (135-145) 04/09/18 09:20 Potassium 4.0 mmol/L (3.5-5.0) 04/09/18 09:20 Chloride 112 mmol/L (101-111) H 04/09/18 09:20 Carbon Dioxide 25 mmol/L (22-32) 04/09/18 09:20 Anion Gap 6 mmol/L (2-11) 04/09/18 09:20 BUN 30 mg/dL (6-24) H 04/09/18 09:20 Creatinine 1.07 mg/dL (0.67-1.17) 04/09/18 09:20 Est GFR ( Amer) 79.5 (>60) 04/09/18 09:20 Est GFR (Non-Af Amer) 65.7 (>60) 04/09/18 09:20 BUN/Creatinine Ratio 28.0 (8-20) H 04/09/18 09:20 Glucose 152 mg/dL (70-100) H 04/09/18 09:20 POC Glucose (mg/dL) 141 mg/dL (70-100) H 03/24/18 18:55 Lactic Acid 1.0 mmol/L (0.5-2.0) 03/24/18 19:40 Uric Acid 7.1 mg/dL (4.4-7.6) 04/03/18 12:59 Calcium 9.1 mg/dL (8.6-10.3) 04/09/18 09:20 Magnesium 2.2 mg/dL (1.9-2.7) 03/28/18 09:58 Total Bilirubin 0.40 mg/dL (0.2-1.0) 03/24/18 19:40 AST 25 U/L (13-39) 03/24/18 19:40 ALT 24 U/L (7-52) 03/24/18 19:40 Alkaline Phosphatase 61 U/L (34-104) 03/24/18 19:40 Total Creatine Kinase 51 U/L (10-223) 03/24/18 19:40 CK-MB (CK-2) 3.0 ng/mL (0.6-6.3) 03/24/18 19:40 Troponin I 0.01 ng/mL (<0.04) 03/25/18 05:13 C-Reactive Protein 158.19 mg/L (<8.01) H 04/04/18 05:20 B-Natriuretic Peptide 112 pg/mL (<=100) H 03/24/18 19:40 Total Protein 6.4 g/dL (6.4-8.9) 03/24/18 19:40 Albumin 3.1 g/dL (3.2-5.2) L 03/24/18 19:40 Globulin 3.3 g/dL (2-4) 03/24/18 19:40 Albumin/Globulin Ratio 0.9 (1-3) L 03/24/18 19:40 Triglycerides 94 mg/dL 03/25/18 05:13 Cholesterol 122 mg/dL 03/25/18 05:13 LDL Cholesterol 56 mg/dL 03/25/18 05:13 HDL Cholesterol 47.2 mg/dL 03/25/18 05:13 TSH 0.92 mcIU/mL (0.34-5.60) 03/25/18 05:13 Thyroxine (T4) 5.47 g/dL (6.09-12.23) L 03/24/18 19:40 Urine Color Yellow 04/02/18 14:00 Urine Appearance Cloudy 04/02/18 14:00 Urine pH 5.0 (5-9) 04/02/18 14:00 Ur Specific [place] 1.023 (1.010-1.030) 04/02/18 14:00 Urine Protein Negative (Negative) 04/02/18 14:00 Urine Ketones Negative (Negative) 04/02/18 14:00 Urine Blood Negative (Negative) 04/02/18 14:00 Urine Nitrate Negative (Negative) 04/02/18 14:00 Urine Bilirubin Negative (Negative) 04/02/18 14:00 Urine Urobilinogen Negative (Negative) 04/02/18 14:00 Ur Leukocyte Esterase Negative (Negative) 04/02/18 14:00 Urine Glucose Negative (Negative) 04/02/18 14:00 - Objective Active Medications: Acetaminophen (Tylenol Tab*) 650 mg PO Q4H PRN PRN Reason: PAIN/FEVER Last Admin: 04/07/18 21:20 Dose: 650 mg Albuterol (Ventolin Hfa Inhaler*) 2 puff INH Q4H PRN PRN Reason: SHORTNESS OF BREATH Aspirin (Aspirin Ec Tab*) 81 mg PO DAILY [facility] Last Admin: 04/10/18 08:54 Dose: 81 mg Atorvastatin Calcium (Lipitor*) 10 mg PO DAILY [facility] Last Admin: 04/10/18 08:54 Dose: 10 mg Calcium Carbonate (Calcium Carbonate Tab*) 1,250 mg PO BID [facility] Last Admin: 04/10/18 08:54 Dose: 1,250 mg Cholecalciferol (Vitamin D Tab*) 1,000 units PO DAILY [facility] Last Admin: 04/10/18 08:54 Dose: 1,000 units Docusate Sodium (Colace Cap*) 100 mg PO BID [facility] Last Admin: 04/10/18 08:54 Dose: Not Given Heparin Sodium (Porcine) (Heparin Vial(*)) 5,000 units SUBCUT Q8HR [facility] Last Admin: 04/10/18 14:22 Dose: Not Given Loperamide HCl (Imodium Liq*) 2 mg PO DAILY PRN PRN Reason: LOOSE STOOLS Melatonin (Melatonin) 9 mg PO BEDTIME [facility] Last Admin: 04/09/18 22:05 Dose: 9 mg Memantine (Namenda Tab*) 10 mg PO BID [facility] Last Admin: 04/10/18 08:54 Dose: 10 mg Metoprolol Tartrate (Lopressor Tab*) 25 mg PO BID [facility] Last Admin: 04/10/18 08:53 Dose: 25 mg Naproxen (Naprosyn Tab*) 250 mg PO Q12H PRN PRN Reason: PAIN Nystatin (Nystatin Top Powder*) 1 applic TOPICAL TID [facility] Last Admin: 04/10/18 14:22 Dose: Not Given Senna (Senokot Tab*) 2 tab PO BEDTIME [facility] Last Admin: 04/09/18 22:03 Dose: 2 tab Tiotropium [place] (Spiriva Cap.Inh*) 1 cap INH DAILY [facility] Last Admin: 04/10/18 08:00 Dose: 1 cap Vital Signs: Vital Signs: Temp Pulse Resp BP Pulse Ox 97.5 F 82 16 124/70 94 04/10/18 07:39 04/10/18 07:39 04/10/18 09:14 04/10/18 07:39 04/10/18 07:39 Patient Weight: Weight 90.9 kg Intake and Output: Intake & Output 04/08/18 04/09/18 04/10/18 04/11/18 06:59 06:59 06:59 06:59 Intake Total 340 1380 1110 220 Balance 340 1380 1110 220 Intake: IV Fluids 980 NS (0.9%) 980 Oral 326 857 9161 220 Other: Estimated Void Medium Small Large Medium # Bowel Movements 0 0 1 0 Estimated Stool Amount Medium Small # Voids 0 2 0 1 ADLs: Meal Record Start: 03/24/18 21: 34 Freq: DAILY@0900,1400,1800 Status: Active Protocol: Created 03/24/18 21:34 System (Rec: 03/24/18 21:34 System IMG-C73) Document 03/25/18 09:00 [id number] (Rec: 03/25/18 09:42 XSP7916 TELE-M14) Document 03/25/18 14:00 RIZ4209 (Rec: 03/25/18 15:11 UDN2799 TELE-M14) Document 03/25/18 18:00 FEG2327 (Rec: 03/25/18 18:07 LSD3805 TELE-M14) Document 03/26/18 09:00 NPK4205 (Rec: 03/26/18 10:03 QTL6096 TELE-M14) Document 03/26/18 14:00 KVX1308 (Rec: 03/26/18 14:02 RCN9024 TELE-M14) Document 03/26/18 17:47 XMK2725 (Rec: 03/26/18 17:47 FEX0241 TELE-M15) Document 03/27/18 09:00 PYV2392 (Rec: 03/27/18 10:17 PPX9380 TELE-M15) Document 03/27/18 13:31 EAD1114 (Rec: 03/27/18 13:35 BHW3644 TELE-M15) Document 03/27/18 18:00 XIB0165 (Rec: 03/27/18 21:21 CLI9416 TELE-C11) Document 03/28/18 09:00 XTW5110 (Rec: 03/28/18 10:49 LVB3751 TELE-C08) Document 03/28/18 13:44 AYW7402 (Rec: 03/28/18 13:44 ZRK5798 TELE-C08) Document 03/28/18 17:36 OIQ1085 (Rec: 03/28/18 17:36 YLR1466 TELE-C10) Document 03/29/18 09:00 BLM8939 (Rec: 03/29/18 10:38 WBI0260 MED-C09) Document 03/29/18 14:00 OOH2808 (Rec: 03/29/18 15:52 ECD0405 MED-C09) Document 03/29/18 18:00 AIP8666 (Rec: 03/29/18 18:39 XYO9738 MED-C16) Document 03/30/18 09:00 CSK3915 (Rec: 03/30/18 09:44 NHM3165 MED-M16) Document 03/30/18 14:00 QQH0764 (Rec: 03/30/18 14:51 NHV7109 MED-C09) Document 03/30/18 18:00 BYD4038 (Rec: 03/30/18 18:19 GFK8091 MED-C12) Document 03/31/18 09:00 TBS4436 (Rec: 03/31/18 09:03 NEO0777 MED-C09) Document 03/31/18 13:29 LBO2892 (Rec: 03/31/18 13:30 ACW3670 MED-C09) Document 03/31/18 18:00 HPL5393 (Rec: 03/31/18 18:11 WEF3817 MED-C11) Document 04/01/18 09:00 WHH2508 (Rec: 04/01/18 10:35 KQU1722 MED-C11) Document 04/01/18 13:32 MOP9663 (Rec: 04/01/18 13:37 DJY8450 MED-C11) Document 04/01/18 18:00 RZP0239 (Rec: 04/01/18 18:28 HET3958 MED-C14) Document 04/02/18 09:00 ZFH4608 (Rec: 04/02/18 09:33 SGE6735 MED-C09) Document 04/02/18 14:00 ZFM9848 (Rec: 04/02/18 14:34 FQA2678 MED-C11) Document 04/02/18 23:43 DSU1237 (Rec: 04/02/18 23:44 QWV7370 MED-C07) Document 04/03/18 09:00 ZXG7801 (Rec: 04/03/18 10:07 ITN8631 MED-C09) Document 04/03/18 14:00 SQF9032 (Rec: 04/03/18 14:42 QSM8124 MED-C09) Document 04/03/18 18:00 ELW8470 (Rec: 04/03/18 19:37 PYK9392 MED-C11) Document 04/04/18 08:58 XZG8845 (Rec: 04/04/18 08:59 TRE6891 MED-C09) Document 04/04/18 14:00 DSX5011 (Rec: 04/04/18 14:06 SWG9099 MED-C09) Document 04/04/18 17:58 TJK3862 (Rec: 04/04/18 17:58 TZV5284 MED-C09) Document 04/05/18 09:00 ADY5907 (Rec: 04/05/18 09:05 BGH4405 MED-C09) Document 04/05/18 12:48 WVS2929 (Rec: 04/05/18 12:48 OJT0054 MED-C05) Document 04/05/18 17:35 ZRI2149 (Rec: 04/05/18 17:35 PHK6353 MED-C05) Document 04/06/18 09:00 BTS1080 (Rec: 04/06/18 10:38 NWD5225 MED-C11) Document 04/06/18 14:00 YVI7338 (Rec: 04/06/18 15:13 JRR0027 MED-C11) Document 04/06/18 18:00 CUP6636 (Rec: 04/06/18 23:43 PPM1819 MED-C02) Document 04/07/18 09:00 TQE1081 (Rec: 04/07/18 10:05 MSI6785 MED-C11) Document 04/07/18 14:00 KKN5286 (Rec: 04/07/18 15:51 ESS2583 MED-C11) Document 04/07/18 18:00 KBR5731 (Rec: 04/07/18 18:23 GWB6693 MED-C11) Document 04/08/18 09:00 XHF1778 (Rec: 04/08/18 10:32 SGT2785 MED-C11) Document 04/08/18 14:00 TUN4443 (Rec: 04/08/18 16:23 GMX3838 MED-C11) Document 04/08/18 18:00 FZF9233 (Rec: 04/08/18 18:55 KYQ5500 MED-C11) Document 04/09/18 09:00 TAW0234 (Rec: 04/09/18 10:59 PGP2604 MED-C13) Document 04/09/18 14:00 HYP9164 (Rec: 04/09/18 14:08 HWA6137 MED-C13) Document 04/09/18 18:00 ZTA4579 (Rec: 04/09/18 21:59 VRJ9221 MED-C07) Document 04/10/18 08:51 NOC0683 (Rec: 04/10/18 08:51 UGW7365 MED-C11) Document 04/10/18 13:49 ABT8291 (Rec: 04/10/18 13:51 GHX2341 MED-C11) Intake and Output Start: 03/24/18 18: 52 Freq: Status: Active Protocol: Created 03/24/18 18:52 System (Rec: 03/24/18 18:52 System EDRM-C09) Intake and Output Start: 03/24/18 21: 34 Freq: DAILY@0600,1400,2200 Status: Active Protocol: Created 03/24/18 21:34 System (Rec: 03/24/18 21:34 System IMG-C73) Document 03/24/18 22:00 TBI1206 (Rec: 03/24/18 22:29 OMP3458 TELE-C11) Document 03/25/18 05:59 SOK3232 (Rec: 03/25/18 06:02 ZAN6973 TELE-C34) Document 03/25/18 14:00 SYF0102 (Rec: 03/25/18 15:11 YOE3270 TELE-M14) Document 03/25/18 22:00 HTU2190 (Rec: 03/25/18 22:16 SQE8633 TELE-M14) Document 03/26/18 06:00 UWP7324 (Rec: 03/26/18 06:14 IXM0462 TELE-M14) Document 03/26/18 14:00 NHJ9691 (Rec: 03/26/18 14:02 QID5868 TELE-M14) Document 03/27/18 05:25 AVX8436 (Rec: 03/27/18 05:27 TUP9242 TELE-M15) Document 03/27/18 14:00 VHY9005 (Rec: 03/27/18 14:10 QOL4775 TELE-M15) Document 03/27/18 22:00 BGE8950 (Rec: 03/27/18 22:29 YPU4354 TELE-C11) Document 03/28/18 06:00 LCJ2005 (Rec: 03/28/18 06:51 SGL3937 TELE-C33) Document 03/28/18 10:49 FZA1801 (Rec: 03/28/18 10:49 YKT3611 TELE-C08) Document 03/28/18 13:44 HEK1161 (Rec: 03/28/18 13:44 PDO3317 TELE-C08) Document 03/28/18 21:42 SXP1494 (Rec: 03/28/18 21:42 YTU0874 TELE-C10) Document 03/29/18 06:00 UGO1803 (Rec: 03/29/18 06:18 BYY3713 MED-C14) Document 03/29/18 13:50 XDW0616 (Rec: 03/29/18 13:53 NQN5212 MED-C11) Document 03/29/18 22:00 SWC3436 (Rec: 03/29/18 22:50 HAE2262 MED-C16) Document 03/30/18 04:59 KPG6792 (Rec: 03/30/18 05:19 XVL7333 MED-C11) Document 03/30/18 14:00 SPZ8711 (Rec: 03/30/18 14:51 JGX1320 MED-C09) Document 03/30/18 22:00 GHF7043 (Rec: 03/30/18 22:43 ZSV4415 MED-C09) Document 03/31/18 06:00 ZVV6398 (Rec: 03/31/18 07:02 DDE8203 MED-C09) Document 03/31/18 13:29 KLA8744 (Rec: 03/31/18 13:30 URT3458 MED-C09) Document 03/31/18 22:00 VAO4459 (Rec: 03/31/18 22:22 QHL0191 MED-C09) Document 04/01/18 06:00 HIY8489 (Rec: 04/01/18 06:40 VWI0270 MED-C09) Document 04/01/18 13:32 VQQ5235 (Rec: 04/01/18 13:37 SUF3411 MED-C11) Document 04/01/18 21:56 ZKI0524 (Rec: 04/01/18 21:57 YTB3607 MED-C13) Document 04/02/18 04:49 DUR5424 (Rec: 04/02/18 04:49 ZVN0417 MED-C13) Document 04/02/18 14:00 RKK7818 (Rec: 04/02/18 14:34 BYY5283 MED-C11) Document 04/02/18 22:00 SJE8200 (Rec: 04/03/18 02:43 FYA8640 MED-M11) Document 04/03/18 06:00 JOI4442 (Rec: 04/03/18 06:30 ITG6676 MED-C13) Document 04/03/18 14:00 FES0441 (Rec: 04/03/18 14:42 KSE1797 MED-C09) Document 04/03/18 22:00 CIV5388 (Rec: 04/03/18 23:55 YMJ9076 MED-C13) Document 04/04/18 06:00 HKN1836 (Rec: 04/04/18 06:44 RNZ8088 MED-C25) Document 04/04/18 06:00 FIT6484 (Rec: 04/04/18 06:26 LIK0099 MED-C13) Document 04/04/18 14:00 AVB0351 (Rec: 04/04/18 14:06 AAX7599 MED-C09) Document 04/04/18 22:00 DVW1224 (Rec: 04/05/18 00:45 HTT3932 MED-C11) Document 04/05/18 05:33 IUG1686 (Rec: 04/05/18 05:34 NOL5755 MED-C11) Document 04/05/18 12:21 UZV0670 (Rec: 04/05/18 12:21 PLT4549 MED-C05) Document 04/05/18 21:55 VVE3942 (Rec: 04/05/18 21:56 OMB7285 MED-C16) Document 04/06/18 05:40 UUB9642 (Rec: 04/06/18 05:42 HZD3980 MED-C16) Document 04/06/18 14:00 ZZJ9640 (Rec: 04/06/18 15:13 DJE2007 MED-C11) Document 04/06/18 22:00 BRP5070 (Rec: 04/06/18 23:46 JQD6953 MED-C02) Document 04/07/18 06:00 QYW0941 (Rec: 04/07/18 06:21 BDD5913 MED-C02) Document 04/07/18 14:00 GDA0849 (Rec: 04/07/18 15:51 QQM7406 MED-C11) Document 04/07/18 22:00 GLY0517 (Rec: 04/07/18 22:46 HTE4873 MED-C05) Document 04/08/18 05:25 JRZ9950 (Rec: 04/08/18 05:26 TFO5187 MED-C05) Document 04/08/18 14:00 PNR5181 (Rec: 04/08/18 16:23 TMJ9203 MED-C11) Document 04/08/18 22:00 BIO8195 (Rec: 04/08/18 22:22 XFU3708 MED-C11) Document 04/09/18 05:13 TYE3012 (Rec: 04/09/18 05:14 UIH9716 MED-C11) Document 04/09/18 14:00 IEX8058 (Rec: 04/09/18 14:09 TUU4599 MED-C13) Document 04/09/18 22:00 ZSZ3483 (Rec: 04/09/18 22:13 CJT7884 MED-C07) Document 04/10/18 05:20 YDO3201 (Rec: 04/10/18 05:21 ESX2838 MED-C05) Document 04/10/18 13:49 UQI0579 (Rec: 04/10/18 13:51 UPT8228 MED-C11) Eyes: No Scleral Icterus, PERRLA Ears/Nose/Mouth/Throat: NL Teeth, Lips, Gums, Mucous Membranes Moist Neck: NL Appearance and Movements; NL JVP, Trachea Midline Cardiovascular: NL Sounds; No Murmurs; No JVD Respiratory: Clear to Auscultation - oriented to self only Abdominal: NL Sounds; No Tenderness; No Distention Extremities: No Edema Neurological: NL Muscle Strength and Tone - Assessment Assessment: 87 yo male with advanced dementia and syncopal event - Plan Consult Plan (MU): Hospice Plan: Long discussion with step daughter who completed the MOLST form no interventions and preferring comfort care. She also was interested in hospice. I think he should qualify with advanced dementia diagnosis. She doesn't want to continue with the syncopal work up. She does want him to be fed. He can't self feed. Her preference is the hospice residence but is also interested in hospice at SNF. Left message for Dr Pack (PCP) about hospice referral. Step daughter has noticed a decline over the last several weeks. He is doing less ADLs. procurement services manager to send referral to Hospice. - Time On Unit Date of Evaluation: 04/10/18 Hospice Consult Time in: 02:00 Hospice Consult Time Out: 03:30 Hospice Consult Time Total: 90 > 50% of Time Spend In Counseling or Coordinating Care: Yes
[2018-04-10] MEDS: Melatonin 3 MG TAB PO SCH (20:37)
[2018-04-10] MEDS: Senna TAB PO SCH (20:39)
[2018-04-11] MEDS: Heparin VIAL(*) 5000 UNITS/ML VIAL (FIVE THOUSAND) SUBCUT SCH (05:19)
[2018-04-11] MEDS: Tiotropium CAP.INH* CAP.INH/18 MCG (USE ORDER SET !) INH SCH (07:17)
[2018-04-11 07:45] VITALS: BP 141/67
--- NOTE | 2018-04-11 09:22 | PN ---
Subjective Date of Service: 04/11/18 Interval History: Patient likely not able to make his needs known. He offers no c/o; however his communication skills are poor. Family History: Unchanged from Admission Social History: Unchanged from Admission Past Medical History: Unchanged from Admission Objective Active Medications: Acetaminophen (Tylenol Tab*) 650 mg PO Q4H PRN PRN Reason: PAIN/FEVER Last Admin: 04/07/18 21:20 Dose: 650 mg Albuterol (Ventolin Hfa Inhaler*) 2 puff INH Q4H PRN PRN Reason: SHORTNESS OF BREATH Aspirin (Aspirin Ec Tab*) 81 mg PO DAILY [facility] Last Admin: 04/10/18 08:54 Dose: 81 mg Atorvastatin Calcium (Lipitor*) 10 mg PO DAILY [facility] Last Admin: 04/10/18 08:54 Dose: 10 mg Calcium Carbonate (Calcium Carbonate Tab*) 1,250 mg PO BID [facility] Last Admin: 04/10/18 20:34 Dose: 1,250 mg Cholecalciferol (Vitamin D Tab*) 1,000 units PO DAILY [facility] Last Admin: 04/10/18 08:54 Dose: 1,000 units Docusate Sodium (Colace Cap*) 100 mg PO BID [facility] Last Admin: 04/10/18 20:29 Dose: Not Given Heparin Sodium (Porcine) (Heparin Vial(*)) 5,000 units SUBCUT Q8HR [facility] Last Admin: 04/11/18 05:19 Dose: Not Given Loperamide HCl (Imodium Liq*) 2 mg PO DAILY PRN PRN Reason: LOOSE STOOLS Memantine (Namenda Tab*) 10 mg PO BID [facility] Last Admin: 04/10/18 20:34 Dose: 10 mg Metoprolol Tartrate (Lopressor Tab*) 25 mg PO BID [facility] Last Admin: 04/10/18 20:34 Dose: 25 mg Naproxen (Naprosyn Tab*) 250 mg PO Q12H PRN PRN Reason: PAIN Nystatin (Nystatin Top Powder*) 1 applic TOPICAL TID [facility] Last Admin: 04/10/18 20:29 Dose: 1 applic Senna (Senokot Tab*) 2 tab PO BEDTIME [facility] Last Admin: 04/10/18 20:39 Dose: 2 tab Tiotropium [place] (Spiriva Cap.Inh*) 1 cap INH DAILY [facility] Last Admin: 04/11/18 07:17 Dose: 1 cap Vital Signs - 8 hr 04/11/18 04/11/18 07:25 07:44 Temperature 98.0 F Pulse Rate 80 Respiratory 18 Rate Blood Pressure 141/67 (mmHg) O2 Sat by Pulse 96 Oximetry Oxygen Devices in Use Now: None Appearance: Alert, partly up in bed. Neutral affect. Looks comfortable. Eyes: No Scleral Icterus Neurological: - - Sociable. Unable to respond to any questions appropriately, no coherent sentences. No tremor. Result Diagrams: 04/04/18 05:20 04/09/18 09:20 Additional Lab and Data: Microbiology and Other Data: Microbiology 03/25/18 05:20 Nasal Screen MRSA (PCR) - Final Nasal Mrsa Detected EKG Data: ns no acute st t change Assess/Plan/Problems-Billing Assessment: Mr. Segal is 87 yr old male with a history significant for mod dementia, prostate cancer, and HTN. Patient was in his normal state of health when he had a prolonged episode of syncope with bradycardia and hypotension with an episode of diarrhea. Patient was admitted for evaluation of syncope - Patient Problems (1) Moderate dementia with behavioral disturbance Current Visit: Yes Status: Chronic Code(s): F03.91 - UNSPECIFIED DEMENTIA WITH BEHAVIORAL DISTURBANCE SNOMED Code(s): 35169512 Comment: It was suspected that the pt developed delirium at admission probably related to pain , that improved dramatically after R wrist cruz was treated. - started on Risperidone PO trial but increased drowsiness and discontinued. Calorie counts ordered. (2) HTN (hypertension) Current Visit: Yes Status: Chronic Code(s): I10 - ESSENTIAL (PRIMARY) HYPERTENSION SNOMED Code(s): 26659308 Comment: - Controlled - Continue metoprolol -d/c'd Norvasc for SBP in low 100's Status and Disposition: . Case management is following. Medically ready for d/c but awaiting STR disposition
[2018-04-11] MEDS: Metoprolol Tartrate TAB* 25 MG PO SCH (09:52)
[2018-04-11] MEDS: Aspirin EC TAB* 81 MG TAB.EC PO SCH (09:52)
[2018-04-11] MEDS: Memantine TAB* 10 MG PO SCH (09:52)
[2018-04-11] MEDS: Atorvastatin* 10 MG TAB PO SCH (09:52)
[2018-04-11] MEDS: Docusate CAP* 100 MG PO SCH ×2 (09:56→10:18)
[2018-04-11] MEDS: Cholecalciferol TAB* 1000 UNITS PO SCH (09:56)
[2018-04-11] MEDS: Calcium Carbonate TAB* 1250 MG (CALCIUM 500 MG) PO SCH (09:56)
[2018-04-11] MEDS: Nystatin TOP POWDER* 15 GM BTL TOPICAL SCH (10:18)
--- NOTE | 2018-04-11 13:07 | PN ---
Progress Note - Progress Note Date of Service: 04/11/18 Note: Time spent on discharge including exam of patient, discussion with CM, nurse, review of EMR and preparation of discharge documents 45 minutes.
--- NOTE | 2018-04-11 13:34 | TRS ---
DATE OF ADMISSION: 03/25/2018. DATE OF TRANSFER: 04/11/2018. HISTORY OF PRESENT ILLNESS AND HOSPITAL COURSE: This 87-year-old man was admitted from the alf facility because of unresponsive episode. His systolic blood pressure was 70, his heart rate was 40. He an elevated D- dimer, but the CTA did not show any pulmonary embolus. It was felt after evaluation here that he had a vasovagal episode. He has had some behavioral disturbance and agitation. He was given some antipsychotic medications. Risperidone made him very sleepy and this was discontinued. He is currently being maintained without any antipsychotic medications. His Donepezil was stopped. Memantine is continued for the time being. He has a swallowing evaluation which he passed. The family is interested in hospice care. Calorie counts might be considered. I would also consider discussing with the healthcare proxy discontinuing his Simvastatin and Memantine. FINAL DIAGNOSIS: Dementia. DISCHARGE MEDICATIONS: 1. Albuterol inhaler two puffs every 4 hours prn. 2. Nystatin topical powder to affected areas t.i.d. 3. Senna two at bedtime. 4. Tiotropium one daily. 5. Acetaminophen 650 mg every 4 hours prn. 6. Metoprolol Tartrate 25 mg b.i.d. 7. Simvastatin 20 mg daily. 8. Vitamin D 1,000 units daily. 9. Aspirin 81 mg daily. 10. Umeclidinium Vilanterol 62.5 one inhalation daily. CONDITION ON DISCHARGE: Stable. DISPOSITION ON DISCHARGE: Transfer to [facility]. [id number]/[facility] #: [id number] TIM
== END 2018-04-11 14:10 | DRG 884 ==
LOC: ED 18:42 → MEDTELE 21:07 → OBSVTOIN 03-25 13:45 → MEDTELE 03-26 15:22 → MED 03-28 22:17
PROVIDERS: ADMIT Internal Medicine; ATTEND Internal Medicine
DX: F03.91 Unspecified dementia, unspecified severity, with behavioral disturbance (principal); F05 Delirium due to known physiological condition; J81.1 Chronic pulmonary edema; I27.20 Pulmonary hypertension, unspecified; R55 Syncope and collapse; I10 Essential (primary) hypertension; I73.9 Peripheral vascular disease, unspecified; Z66 Do not resuscitate; M25.531 Pain in right wrist; M11.231 Other chondrocalcinosis, right wrist; E78.5 Hyperlipidemia, unspecified; R79.89 Other specified abnormal findings of blood chemistry; R50.9 Fever, unspecified; K58.9 Irritable bowel syndrome, unspecified; Z79.01 Long term (current) use of anticoagulants; Z79.1 Long term (current) use of non-steroidal anti-inflammatories (NSAID); Z79.82 Long term (current) use of aspirin; Z79.899 Other long term (current) drug therapy; Z85.46 Personal history of malignant neoplasm of prostate; I25.10 Atherosclerotic heart disease of native coronary artery without angina pectoris; I11.9 Hypertensive heart disease without heart failure; Z95.2 Presence of prosthetic heart valve; Z95.5 Presence of coronary angioplasty implant and graft
CPT/HCPCS: 36415; 70450; 71045; 71275; 80048; 80053; 80061; 81003; 82550; 82553; 83605; 83735; 83880; 84436; 84443; 84484; 84550; 85025; 85379; 85610; 85652; 85730; 86140; 87040; 87641; 93005; 93306; 93970; 94640; 94762; 99285; A9270-GY; C8929; G8978-GP-CJ; G8978-GP-CM; G8979-GP-CJ; G8980-GP-CJ; G8980-GP-CM; G8987-GO-CL; G8988-GO-CK; J1630; J1644; J3475; J3486; Q9967